=== PATIENT | female | born 1950 | race Caucasian/White ===

== ENCOUNTER → 2016-10-27 | Outpatient (CLI) | payer MEDICARE ==
--- NOTE | 2016-10-31 07:35 | MM ---
Reason for exam: screening (asymptomatic). Last mammogram was performed 1 year and 5 months ago. History: Patient is postmenopausal. Benign stereotactic core biopsy of the left breast, June 25, 2004. Core biopsy of the left breast. Took estrogen for 3 years. Physical Findings: A clinical breast exam by your physician is recommended on an annual basis and results should be correlated with mammographic findings. MG 3D Screening Mammo W/Cad Bilateral CC and MLO view(s) were taken. Prior study comparison: June 11, 2015, bilateral MG screening mammo w CAD. June 05, 2014, bilateral MG screening mammo w CAD. May 03, 2013, bilateral digital screening mammo w/CAD. There are scattered fibroglandular densities. Previous mammotome biopsy in the left breast. No significant changes when compared with prior studies. ASSESSMENT: Negative, BI-RAD 1 RECOMMENDATION: Routine screening mammogram of both breasts in 1 year.
== END | disposition home or self-care (01) ==
LOC: RADMAMWWP 07:44
PROVIDERS: ATTEND Internal Medicine
DX: Z12.31 Encounter for screening mammogram for malignant neoplasm of breast (principal)
CPT/HCPCS: 77063; G0202

== ENCOUNTER 2017-02-05 07:42 | Emergency (ER) | payer MEDICARE ==
[2017-02-05 07:44] VITALS: BP 188/77; PULSE 70; RESP 18; TEMP 97.4
--- NOTE | 2017-02-05 08:09 | ED ---
General Adult HPI - General Chief complaint: ENT Stated complaint: FB in ear Time Seen by Provider: 02/05/17 07:54 Source: patient, RN notes reviewed Mode of arrival: ambulatory Limitations: no limitations - History of Present Illness Initial comments: Patient is a pleasant 66-year-old female presenting to the emergency department with sensation of insect in her left ear. Patient felt moving around in her ear this morning. The did flush her ear out however that only seemed to make symptoms worse. No history of similar problems previously. Discomfort is mild. - Related Data Home Medications Medication Instructions Recorded Confirmed Pravastatin Sodium [Pravachol] 80 mg PO DAILY 01/15/14 05/24/16 metFORMIN HCL [Glucophage Xr] 500 mg PO DAILY 01/15/14 05/24/16 Ibandronate Sodium [Boniva] 150 mg PO QMONTH 12/11/15 05/24/16 Calcium Carbonate [Calcium] 1,200 mg PO DAILY 05/19/16 05/24/16 Previous Rx's Medication Instructions Recorded Aspirin 325 mg PO BID #60 tab 05/27/16 Hydrocodone/Acetaminophen [[place] 1 - 2 each PO Q6HR PRN #90 tab 05/27/16 5-325] Lisinopril [Zestril] 5 mg PO DAILY tab 05/27/16 Sennosides-Docusate Sodium 2 tab PO DAILY #60 tablet 05/27/16 [Senokot-S] Allergies Allergy/AdvReac Type Severity Reaction Status Date / Time No Known Allergies Allergy Verified 02/05/17 07:44 Review of Systems ROS Statement: Those systems with pertinent positive or pertinent negative responses have been documented in the HPI. ROS Other: All systems not noted in ROS Statement are negative. Constitutional: Denies: fever Eyes: Denies: eye pain ENT: Reports: ear pain Respiratory: Denies: cough Cardiovascular: Denies: chest pain Endocrine: Denies: fatigue Gastrointestinal: Denies: abdominal pain, vomiting Genitourinary: Denies: dysuria Musculoskeletal: Denies: back pain Skin: Denies: rash Neurological: Denies: weakness Past Medical History Past Medical History: Diabetes Mellitus, Hyperlipidemia, Hypertension Additional Past Medical History / Comment(s): Lumbar disc History of Any Multi-Drug Resistant Organisms: None Reported Past Surgical History: Tonsillectomy Additional Past Surgical History / Comment(s): D&C, COLONOSCOPIES, BUNIONS, 10-4 -16 LT TOTAL KNEE REPLACEMENT Past Anesthesia/Blood Transfusion Reactions: No Reported Reaction Past Psychological History: No Psychological Hx Reported Smoking Status: Never smoker Past Alcohol Use History: None Reported Past Drug Use History: None Reported - Past Family History Father Family Medical History: Congestive Heart Failure (CHF) Mother Family Medical History: Cancer Additional Family Medical History / Comment(s): UNSURE WHAT KIND, HEART PROBLEMS General Exam Limitations: no limitations General appearance: alert, in no apparent distress Head exam: Present: atraumatic Eye exam: Present: normal appearance Expanded TM/Canal exam: Foreign Body: Left TM (moth) Neck exam: Present: normal inspection Respiratory exam: Present: normal lung sounds bilaterally Cardiovascular Exam: Present: regular rate, normal rhythm GI/Abdominal exam: Present: soft. Absent: tenderness Neurological exam: Present: alert Psychiatric exam: Present: normal affect, normal mood Skin exam: Present: normal color Course Vital Signs 02/05/17 07:43 Temperature 97.4 F L Pulse Rate 70 Respiratory 18 Rate Blood Pressure 188/77 O2 Sat by Pulse 98 Oximetry Procedures - Foreign Body Removal Ear Location: ear canal (L) Foreign Body Suspected: insect If Insect Suspected: ear canal inspected; intact TM, insect seen Foreign Body Removal Technique: forceps (removed with alligator forceps) Patient Tolerated Procedure: well Complications: none Disposition Clinical Impression: Foreign body in left ear Disposition: HOME SELF-CARE Condition: Stable Instructions: Ear Foreign Body (ED) Additional Instructions: Please follow-up with your doctor in the next few days for recheck. Return for fever, increased pain, hearing loss, discharge, worsening symptoms or other concerns Referrals: Salbador Martinez MD [Primary Care Provider] - 1-2 days Time of Disposition: 08:09
== END 2017-02-05 08:11 | disposition home or self-care (01) ==
LOC: EC 07:42
DX: T16.2XXA Foreign body in left ear, initial encounter (principal); E11.9 Type 2 diabetes mellitus without complications; E78.5 Hyperlipidemia, unspecified; Z79.899 Other long term (current) drug therapy; Z79.84 Long term (current) use of oral hypoglycemic drugs
CPT/HCPCS: 69200; 99282

== ENCOUNTER 2017-05-29 08:17 | Emergency (ER) | payer MEDICARE ==
[2017-05-29] MEDS ORDERED: MECLIZINE 12.5 MG TAB PO STA (08:44)
--- NOTE | 2017-05-29 08:55 | ED ---
Dizziness HPI - General Chief Complaint: Dizziness Stated Complaint: DIZZINESS, NAUSEA Time Seen by Provider: 05/29/17 08:31 Source: patient, RN notes reviewed Mode of arrival: wheelchair Limitations: no limitations - History of Present Illness Initial Comments: This is a 66-year-old female with a history of diabetes who states she woke up this morning and father she was very dizzy this with head movement while in bed and when she failure this morning. She states is still there she denies any headache blurry vision focal weakness or upper or lower extremities she was feeling fine when she went to bed last night this he she's had a sinus condition with some rhinorrhea and congestion for about a week. No other complaints no prior histories of vertigo no hearing loss no other complaints at this time. MD Complaint: dizziness, lightheadedness - Related Data Home Medications Medication Instructions Recorded Confirmed Pravastatin Sodium [Pravachol] 80 mg PO HS 01/15/14 05/29/17 metFORMIN HCL [Glucophage Xr] 500 mg PO DAILY 01/15/14 05/29/17 Ibandronate Sodium [Boniva] 150 mg PO QMONTH 12/11/15 05/29/17 Aspirin [Adult Low Dose Aspirin EC] 81 mg PO HS 02/05/17 05/29/17 Furosemide [Lasix] 20 mg PO DAILY 02/05/17 05/29/17 Lisinopril [Zestril] 10 mg PO DAILY 02/05/17 05/29/17 Calcium Carbonate [Calcium] 600 mg PO BID 05/29/17 05/29/17 Previous Rx's Medication Instructions Recorded Meclizine [Antivert] 25 mg PO TID #20 tab 05/29/17 Allergies Allergy/AdvReac Type Severity Reaction Status Date / Time No Known Allergies Allergy Verified 05/29/17 08:49 Review of Systems ROS Statement: Those systems with pertinent positive or pertinent negative responses have been documented in the HPI. ROS Other: All systems not noted in ROS Statement are negative. Past Medical History Past Medical History: Diabetes Mellitus, Hyperlipidemia, Hypertension Additional Past Medical History / Comment(s): Lumbar disc History of Any Multi-Drug Resistant Organisms: None Reported Past Surgical History: Tonsillectomy Additional Past Surgical History / Comment(s): D&C, COLONOSCOPIES, BUNIONS, 05-24 LT TOTAL KNEE REPLACEMENT Past Anesthesia/Blood Transfusion Reactions: No Reported Reaction Past Psychological History: No Psychological Hx Reported Smoking Status: Never smoker Past Alcohol Use History: None Reported Past Drug Use History: None Reported - Past Family History Father Family Medical History: Congestive Heart Failure (CHF) Mother Family Medical History: Cancer Additional Family Medical History / Comment(s): UNSURE WHAT KIND, HEART PROBLEMS General Exam - General Exam Comments Initial Comments: This is a well-developed well-nourished awake alert oriented 3 female Limitations: no limitations General appearance: alert, in no apparent distress Head exam: Present: atraumatic, normocephalic, normal inspection Eye exam: Present: normal appearance, PERRL, EOMI. Absent: scleral icterus, conjunctival injection, periorbital swelling ENT exam: Present: other (Boggy nasal mucosa otherwise unremarkable exam. Is reproducible dizziness with head and eye movement.) Neck exam: Present: normal inspection. Absent: tenderness, meningismus, lymphadenopathy Respiratory exam: Present: normal lung sounds bilaterally. Absent: respiratory distress, wheezes, rales, rhonchi, stridor Cardiovascular Exam: Present: regular rate, normal rhythm, normal heart sounds. Absent: systolic murmur, diastolic murmur, rubs, gallop, clicks GI/Abdominal exam: Present: soft, normal bowel sounds. Absent: distended, tenderness, guarding, rebound, rigid Extremities exam: Present: full ROM, normal capillary refill, other (This is dermatitis with trace edema more so on the left than the right). Absent: tenderness, pedal edema, joint swelling, calf tenderness Back exam: Present: normal inspection Neurological exam: Present: alert, oriented X3, CN II-XII intact Psychiatric exam: Present: normal affect, normal mood Skin exam: Present: warm, dry, intact, normal color. Absent: rash Course Vital Signs 05/29/17 05/29/17 05/29/17 08:19 09:08 10:08 Temperature 97.0 F L Pulse Rate 60 54 L 54 L Respiratory 17 Rate Blood Pressure 144/61 124/57 150/67 O2 Sat by Pulse 100 97 97 Oximetry EKG Findings - EKG Results: EKG: interpreted by ERMD, sinus rhythm (Sinus rhythm rate of 59. A 144 QRS duration 80 QT since QTC of 434/429 nonspecific T-wave configuration.) Medical Decision Making - Medical Decision Making Patient is feeling improved and place without difficulty. Patient will be discharged and placed on Antivert. She is follow-up with her doctor return when necessary - Lab Data Result diagrams: 05/29/17 09:00 05/29/17 09:00 Lab Results 05/29/17 05/29/17 05/29/17 Range/Units 09:00 09:00 09:00 WBC 4.6 (3.8-10.6) k/uL RBC 4.37 (3.80-5.40) m/uL Hgb 14.0 (11.4-16.0) gm/dL Hct 42.0 (34.0-46.0) % MCV 96.1 (80.0-100.0) fL MCH 31.9 (25.0-35.0) pg MCHC 33.2 (31.0-37.0) g/dL RDW 13.6 (11.5-15.5) % Plt Count 154 (150-450) k/uL Neutrophils % 77 % Lymphocytes % 16 % Monocytes % 5 % Eosinophils % 1 % Basophils % 0 % Neutrophils # 3.6 (1.3-7.7) k/uL Lymphocytes # 0.7 L (1.0-4.8) k/uL Monocytes # 0.3 (0-1.0) k/uL Eosinophils # 0.1 (0-0.7) k/uL Basophils # 0.0 (0-0.2) k/uL PT (9.0-12.0) sec INR (<1.2) Sodium 140 (137-145) mmol/L Potassium 4.0 (3.5-5.1) mmol/L Chloride 107 (98-107) mmol/L Carbon Dioxide 25 (22-30) mmol/L Anion Gap 8 mmol/L BUN 23 H (7-17) mg/dL Creatinine 0.80 (0.52-1.04) mg/dL Est GFR (MDRD) Af Amer >60 (>60 ml/min/1.73 sqM) Est GFR (MDRD) Non-Af >60 (>60 ml/min/1.73 sqM) Glucose 149 H (74-99) mg/dL Calcium 9.0 (8.4-10.2) mg/dL Magnesium 1.8 (1.6-2.3) mg/dL Total Bilirubin 0.4 (0.2-1.3) mg/dL AST 16 (14-36) U/L ALT 28 (9-52) U/L Alkaline Phosphatase 71 (38-126) U/L Total Creatine Kinase 52 (30-135) U/L CK-MB (CK-2) 0.9 (0.0-2.4) ng/mL CK-MB (CK-2) Rel Index 1.7 Troponin I <0.012 (0.000-0.034) ng/mL Total Protein 5.9 L (6.3-8.2) g/dL Albumin 3.6 (3.5-5.0) g/dL Urine Color Urine Appearance (Clear) Urine pH (5.0-8.0) Ur Specific [place] (1.001-1.035) Urine Protein (Negative) Urine Glucose (UA) (Negative) Urine Ketones (Negative) Urine Blood (Negative) Urine Nitrite (Negative) Urine Bilirubin (Negative) Urine Urobilinogen (<2.0) mg/dL Ur Leukocyte Esterase (Negative) 05/29/17 05/29/17 Range/Units 09:00 11:11 WBC (3.8-10.6) k/uL RBC (3.80-5.40) m/uL Hgb (11.4-16.0) gm/dL Hct (34.0-46.0) % MCV (80.0-100.0) fL MCH (25.0-35.0) pg MCHC (31.0-37.0) g/dL RDW (11.5-15.5) % Plt Count (150-450) k/uL Neutrophils % % Lymphocytes % % Monocytes % % Eosinophils % % Basophils % % Neutrophils # (1.3-7.7) k/uL Lymphocytes # (1.0-4.8) k/uL Monocytes # (0-1.0) k/uL Eosinophils # (0-0.7) k/uL Basophils # (0-0.2) k/uL PT 10.2 (9.0-12.0) sec INR 1.0 (<1.2) Sodium (137-145) mmol/L Potassium (3.5-5.1) mmol/L Chloride (98-107) mmol/L Carbon Dioxide (22-30) mmol/L Anion Gap mmol/L BUN (7-17) mg/dL Creatinine (0.52-1.04) mg/dL Est GFR (MDRD) Af Amer (>60 ml/min/1.73 sqM) Est GFR (MDRD) Non-Af (>60 ml/min/1.73 sqM) Glucose (74-99) mg/dL Calcium (8.4-10.2) mg/dL Magnesium (1.6-2.3) mg/dL Total Bilirubin (0.2-1.3) mg/dL AST (14-36) U/L ALT (9-52) U/L Alkaline Phosphatase (38-126) U/L Total Creatine Kinase (30-135) U/L CK-MB (CK-2) (0.0-2.4) ng/mL CK-MB (CK-2) Rel Index Troponin I (0.000-0.034) ng/mL Total Protein (6.3-8.2) g/dL Albumin (3.5-5.0) g/dL Urine Color Yellow Urine Appearance Clear (Clear) Urine pH 6.0 (5.0-8.0) Ur Specific [place] 1.011 (1.001-1.035) Urine Protein Negative (Negative) Urine Glucose (UA) Negative (Negative) Urine Ketones Negative (Negative) Urine Blood Negative (Negative) Urine Nitrite Negative (Negative) Urine Bilirubin Negative (Negative) Urine Urobilinogen <2.0 (<2.0) mg/dL Ur Leukocyte Esterase Negative (Negative) - Radiology Data Radiology results: report reviewed (I did review the imaging and reports no acute findings.), image reviewed Disposition Clinical Impression: Benign paroxysmal positional vertigo Disposition: HOME SELF-CARE Condition: Good Instructions: Dizziness (ED), Benign Paroxysmal Positional Vertigo (ED) Prescriptions: Meclizine [Antivert] 25 mg PO TID #20 tab Referrals: Salbador Martinez MD [Primary Care Provider] - 1-2 days
[2017-05-29 09:16] LABS: Basophils % (A) 0 %; CH 33.3; CHCM 34.9; Eosinophils # (A) 0.1 k/uL (0-0.7); Eosinophils % (A) 1 %; HDW 2.85; Luc # (Auto) 0.03; Luc % (Auto) 1; Lymphocytes # (A) 0.7 k/uL (1.0-4.8); Lymphocytes % (A) 16 %; MCH 31.9 pg (25.0-35.0); MCHC 33.2 g/dL (31.0-37.0); MCV 96.1 fL (80.0-100.0); Monocytes # (A) 0.3 k/uL (0-1.0); Monocytes % (A) 5 %; Neutrophils # (A) 3.6 k/uL (1.3-7.7); Neutrophils % (A) 77 %; RBC 4.37 m/uL (3.80-5.40); RDW 13.6 % (11.5-15.5); WBC 4.6 k/uL (3.8-10.6); WBC (Perox) 5.05
[2017-05-29 09:22] LABS: ALT 28 U/L (9-52); AST 16 U/L (14-36); Alkaline Phosphatase 71 U/L (38-126); Anion Gap 8 mmol/L; Blood Urea Nitrogen 23 mg/dL (7-17); Carbon Dioxide 25 mmol/L (22-30); Chloride 107 mmol/L (98-107); Glucose 149 mg/dL (74-99); Magnesium 1.8 mg/dL (1.6-2.3); Non-African American GFR(MDRD) >60 (>60 ml/min/1.73 sqM); Sodium 140 mmol/L (137-145); Total Bilirubin 0.4 mg/dL (0.2-1.3); Total Protein 5.9 g/dL (6.3-8.2)
[2017-05-29 09:28] LABS: Prothrombin Time 10.2 sec (9.0-12.0)
[2017-05-29 09:34] LABS: Creatine Kinase 52 U/L (30-135)
--- NOTE | 2017-05-29 09:42 | CT ---
EXAMINATION TYPE: CT brain wo con DATE OF EXAM: 05/29/2017 COMPARISON: NONE HISTORY: Dizziness CT DLP: 1054.2 mGycm Automated exposure control for dose reduction was used. Helical acquisition through the brain. FINDINGS: There is no hemorrhage or hydrocephalus. Brain density is maintained. Cerebral vascular calcification s are noted incidentally. The calvarium is intact. Paranasal sinuses and mastoid air cells as visuali zed show mild mucosal disease in the sinus, mastoids are well aerated. The orbits show symmetric appe arance. IMPRESSION: NO ABNORMALITY EVIDENT TO ACCOUNT FOR PATIENT'S SYMPTOMS.
[2017-05-29 09:47] LABS: Troponin I <0.012 ng/mL (0.000-0.034)
[2017-05-29 10:03] LABS: Creatine Kinase MB 0.9 ng/mL (0.0-2.4)
[2017-05-29 11:18] LABS: Appearance,Urine Clear (Clear); Bilirubin,Urine Negative (Negative); Glucose,Urine (UA) Negative (Negative); Ketones,Urine Negative (Negative); Leukocyte Esterase,Urine Negative (Negative); Nitrite,Urine Negative (Negative); Protein,Urine Negative (Negative); Specific Gravity,Urine 1.011 (1.001-1.035); UA Billing (MACRO vs. MICRO) CHEM; Urobilinogen,Urine <2.0 mg/dL (<2.0)
[2017-05-29 11:51] VITALS: BP 146/66; PULSE 56; RESP 16; TEMP 97.2
== END 2017-05-29 11:51 | disposition home or self-care (01) ==
LOC: EC 08:17
DX: H81.10 Benign paroxysmal vertigo, unspecified ear (principal); E11.9 Type 2 diabetes mellitus without complications; E78.5 Hyperlipidemia, unspecified; I10 Essential (primary) hypertension; Z79.84 Long term (current) use of oral hypoglycemic drugs; Z79.82 Long term (current) use of aspirin; Z79.899 Other long term (current) drug therapy
CPT/HCPCS: 36415; 70450; 80053; 81003; 82550; 82553; 83735; 84484; 85025; 85610; 93005; 99284

== ENCOUNTER → 2017-12-12 | Outpatient (CLI) | payer MEDICARE ==
--- NOTE | 2017-12-13 11:53 | MM ---
Reason for exam: screening (asymptomatic). Last mammogram was performed 1 year and 1 month ago. History: Patient is postmenopausal. Benign stereotactic core biopsy of the left breast, June 25, 2004. Core biopsy of the left breast. Took estrogen for 3 years. Physical Findings: A clinical breast exam by your physician is recommended on an annual basis and results should be correlated with mammographic findings. MG 3D Screening Mammo W/Cad Bilateral CC and MLO view(s) were taken. Prior study comparison: October 27, 2016, bilateral MG 3d screening mammo w/cad. June 11, 2015, bilateral MG screening mammo w CAD. There are scattered fibroglandular densities. No suspicious abnormality. Left biopsy marker noted. No significant changes when compared with prior studies. ASSESSMENT: Negative, BI-RAD 1 RECOMMENDATION: Routine screening mammogram of both breasts in 1 year.
== END | disposition home or self-care (01) ==
LOC: RADMAMWWP 07:47
PROVIDERS: ATTEND Internal Medicine
DX: Z12.31 Encounter for screening mammogram for malignant neoplasm of breast (principal)
CPT/HCPCS: 77063; 77067

== ENCOUNTER → 2017-12-21 | Outpatient (CLI) | payer MEDICARE ==
[2017-12-21 12:00] LABS: HCT 44.3 % (34.0-46.0); MCH 30.2 pg (25.0-35.0); MCHC 33.7 g/dL (31.0-37.0); MCV 89.4 fL (80.0-100.0); Mean Platelet Volume 7.9; Platelet Count 186 k/uL (150-450); RBC 4.96 m/uL (3.80-5.40); RDW 12.8 % (11.5-15.5); WBC 5.2 k/uL (3.8-10.6)
[2017-12-21 12:13] LABS: Calcium 9.8 mg/dL (8.4-10.2); Potassium 4.3 mmol/L (3.5-5.1); Total Bilirubin 0.6 mg/dL (0.2-1.3); Total Protein 6.2 g/dL (6.3-8.2)
[2017-12-21 12:14] LABS: INR 1.1 (<1.2); Partial Thromboplastin Time 22.4 sec (22.0-30.0); Prothrombin Time 10.5 sec (9.0-12.0)
[2017-12-21 13:05] LABS: Appearance,Urine Cloudy (Clear); Bilirubin,Urine Negative (Negative); Blood,Urine Negative (Negative); Color,Urine Yellow; Glucose,Urine (UA) Negative (Negative); Ketones,Urine Negative (Negative); Leukocyte Esterase,Urine Large (Negative); Mucus,Urine Occasional /hpf; Nitrite,Urine Negative (Negative); PH, Urine 5.5 (5.0-8.0); Protein,Urine Negative (Negative); Specific Gravity,Urine 1.018 (1.001-1.035); Squamous Epithelial Cell,Urine 16 /hpf (0-4); Urobilinogen,Urine <2.0 mg/dL (<2.0); WBC,Urine 11 /hpf (0-5)
== END | disposition home or self-care (01) ==
LOC: LABPAT 11:27
PROVIDERS: ATTEND Orthopaedic Surgery
DX: Z01.810 Encounter for preprocedural cardiovascular examination (principal); Z79.01 Long term (current) use of anticoagulants; Z01.812 Encounter for preprocedural laboratory examination
CPT/HCPCS: 36415; 80053; 81001; 85027; 85610; 85730; 87070; 93005

== ENCOUNTER 2018-01-08 05:30 | Inpatient (IN) | payer MEDICARE ==
[2017-12-28 11:21] VITALS: BMI 50.8
--- NOTE | 2018-01-04 15:51 | CONS ---
CONSULTATION REASON FOR ADMISSION: She is scheduled for orthopedic surgery at [facility] on January 08 under direction of orthopedic surgeon, Dr. Robin Romo. HISTORY OF PRESENT ILLNESS: The patient other than the pain she is having with the right knee, she is not complaining of any unusual chest pain, shortness of breath. No fever, chills, or cough. No nausea, vomiting. No urinary or bowel symptomatology. No unusual leg edema. The patient herself does have a history of type 2 diabetes, hypertension , hyperlipidemia. She is overall obese and has underlying osteoporosis and a previous history of a previous DVT after her previous left knee surgery 2 years ago. At this point though she is not on any long-term anticoagulation. No history of myocardial infarction or stroke. HOME MEDICATIONS: Include for the osteoporosis Boniva 150 mg on a monthly basis, for cholesterol pravastatin 80 mg daily, for blood pressure lisinopril 10 mg daily, for diabetes, metformin 500 mg daily, for fluid and blood pressure, furosemide 20 mg daily. ALLERGIES: No known allergies. REVIEW OF SYSTEMS: As stated above previous. SOCIAL HISTORY: Very infrequent alcohol use. There is no history of smoking. She lives locally with her . PREVIOUS SURGICAL HISTORY: Includes a left knee surgery back 2015, previous D and C, previous left breast biopsy, previous bunion surgery. PHYSICAL EXAMINATION: She is a pleasant, but overweight female with a BMI of 48.9 and a weight of 276 pounds. Height of 63, blood pressure was 126/86, pulse of 72 and regular. HEENT: Unremarkable. NECK: Supple without adenopathy, thyromegaly, or bruits. Lungs were clear to auscultation. Heart tones were regular without murmur. Breasts and pelvic exam was deferred. ABDOMEN: Nontender without rebound, guarding, or masses. Extremities revealed no unusual distal edema. Distal pulses were present. She has had no claudication history and neurologically she is alert and oriented. Cranial nerves intact. No focal neurological deficits. LAB: Testing blood sugar randomly was 110. Sodium 140, potassium 4.3, BUN of 23 with creatinine 0.82. Giving her a GFR of 74. Albumin was 4.0. Liver function tests were good. White count 5.2, hemoglobin 15, and a platelet count of 186. Her INR is 1.1, PTT 22.4. Her urinalysis did reveal a large amount of leukocyte esterase with 11 white cells, although there were 16 squamous cells present, which could indicate some contamination. Her EKG showed a normal sinus rhythm. No definite ischemic changes noted. Rate was approximately 72-75. IMPRESSION: At this point is this 67-year-old female for a right total knee arthroplasty. She does have somewhat risk factors in terms of previous history of DVT 2 years ago, the obesity and diabetes. She does have history of hypertension, history of osteoporosis. At this point though, I see no definite contraindication for this surgery. Because of the leukocyte esterase we will send a culture and sterilize urine with oral antibiotics through the rest of the weekend but at this point, I see no definite contraindication to any planned surgical intervention regarding the knee. Please call if any questions, concerns, or problems. MMODL / IJN: [id number] / MTDD
[~2018-01-08 05:30] MED LIST: ACETAMINOPHEN TAB 500 MG TAB PO ONE; MELOXICAM 7.5 MG TAB PO ONE; TRANEXAMIC ACID 1,000 MG in SODIUM CHLORIDE 0.9% 50 ML IVPB ONE
[2018-01-08] MEDS ORDERED: ROPIVACAINE 246.25 MG, EPINEPHrine 0.5 MG, KETOROLAC 30 MG, cloNIDine HCL/PF 80 MCG, WA... MISCELLANE ONE ×5 (05:50)
[2018-01-08] MEDS ORDERED: LIDOCAINE 1% 20 ML VIAL (10MG/ML) FOR IV START INTRADERMA PRN (05:58)
[2018-01-08] MEDS ORDERED: MORPHINE SULFATE 4 MG/ML SYRINGE IV PRN (05:58)
[2018-01-08] MEDS ORDERED: ONDANSETRON 4 MG/2 ML VIAL IVP ONE (05:58)
[2018-01-08] MEDS ORDERED: MIDAZOLAM 2 MG/2 ML VIAL IV PRN (05:58)
[2018-01-08] MEDS ORDERED: DEXAMETHASONE SOD PHOSPHATE 10 MG/ML 1 ML VIAL IV ONE (05:58)
[2018-01-08 06:40] LABS: Glucose,Whole Blood 115 mg/dL (75-99)
[2018-01-08] MEDS ORDERED: NALOXONE 0.4 MG/ML 1 ML VIAL IV PRN (06:57)
[2018-01-08] MEDS ORDERED: BISACODYL 10 MG SUPP RECTAL PRN (06:57)
[2018-01-08] MEDS ORDERED: NA PHOS,M-B/NA PHOS,DI-BA 133 ML ENEMA RECTAL PRN (06:57)
[2018-01-08] MEDS ORDERED: hydrOXYzine PAMOATE 25 MG CAP PO PRN (06:57)
[2018-01-08] MEDS ORDERED: HYDROmorphone 0.5 MG/0.5 ML SYRINGE IVP PRN ×4 (06:57)
[2018-01-08] MEDS ORDERED: DIAZEPAM 5 MG TAB PO PRN ×2 (06:57)
[2018-01-08] MEDS ORDERED: HYDROcodone/APAP 5-325MG 1 EACH TAB PO PRN (06:57)
[2018-01-08] MEDS ORDERED: MAGNESIUM HYDROXIDE 2,400 MG/10 ML CUP PO PRN (06:57)
[2018-01-08] MEDS ORDERED: ONDANSETRON 4 MG/2 ML VIAL IVP PRN (06:57)
[2018-01-08] MEDS: LACTATED RINGERS 1,000 ML IV SCH ×2 (07:03→10:57)
[2018-01-08] MEDS ORDERED: TRANEXAMIC ACID 1,000 MG/10 ML VIAL ONE (07:04)
[2018-01-08] MEDS ORDERED: SODIUM CHLORIDE 0.9% 100 ML BAG ONE (07:04)
[2018-01-08] MEDS ORDERED: ePHEDrine SULFATE/0.9% NACL/PF 50 MG/5 ML SYRINGE IV ONE (07:04)
[2018-01-08] MEDS ORDERED: ceFAZolin 3,000 MG in SODIUM CHLORIDE 0.9% IRRIGATIO 3,000 ML IRRIGATION ONE (07:04)
[2018-01-08] MEDS ORDERED: MIDAZOLAM 2 MG/2 ML VIAL ONE (07:04)
[2018-01-08] MEDS ORDERED: IV FLUID CONTINUATION 1,000 ML IV ONE (07:04)
[2018-01-08] MEDS ORDERED: LACTATED RINGERS 1,000 ML IV ONE (08:02)
[2018-01-08] MEDS ORDERED: ROPIVACAINE 1,100 MG, SODIUM CHLORIDE 0.9% 330 ML MISCELLANE PRN ×2 (08:15)
--- NOTE | 2018-01-08 08:17 | P.ONQ ---
Anesthesiology Proc Note - PNB - Peripheral Nerve Block Performed Right Adductor Canal Infusion Time Out Performed: Yes Procedure Start Time: 06:51 Procedure Stop Time: 07:00 Indication: Acute Post-Operative Pain, Requested by physician Sedation Type: Sedate with meaningful contact maintained Preparation: Sterile Dressing Position: Supine Catheter: Indwelling Needle Types: On-Q Needle Size: 100mm (4") Needle Gauge: 21 Technique: Ultrasound Injectate: 0.5% Ropivacaine (see comment for volume) (ropi .5% 20cc) Blood Aspirated: No Pain Paresthesia on Injection Noted: No Resistance on Injection: Normal Events: Uneventful and Well Tolerated
--- NOTE | 2018-01-08 08:30 | P.OP ---
Date of Procedure: 01/08/18 Preoperative Diagnosis: Severe osteoarthritis right knee Postoperative Diagnosis: Severe osteoarthritis right knee Procedure(s) Performed: Right total knee arthroplasty Implants: Tovar and Nephew Oxinium femoral component size 5, right Tovar & Nephew Darlene II right nonporous tibial baseplate size 3 Tovar & Nephew size 13 mm Legion XLPE dished articular insert, size 3-4 Tovar & Nephew Darlene II resurfacing patellar component, 29 mm All components were cemented using Catracho bone cement.. The articulation is Oxinium on polyethylene. Anesthesia: spinal Surgeon: Robin Romo Road Cleaner #1: Marybel Burnett Estimated Blood Loss (ml): 25 Pathology: other (Bone and cartilage) Condition: stable Disposition: PACU Indications for Procedure: After failure of conservative treatment we discussed the surgical and nonsurgical treatment options at length. Patient wishes to proceed with a total knee arthroplasty. Complications specific to this procedure were discussed at length, including but not limited to infection, bleeding, stiffness , and nerve injury. Patient is aware of all these complications and informed consent was obtained Operative Findings: The operative findings are consistent with severe osteoarthritis of the right knee Description of Procedure: Patient was seen in the preoperative area consent was reviewed and operative site was marked with a skin marker. An adductor canal pain catheter was placed by anesthesia in the preoperative area. Patient was then brought to the operating room and given preoperative antibiotics intravenously. A spinal anesthetic was administered by the anesthesia department. A tourniquet was placed on the upper thigh and the lower extremity was prepped and draped in usual sterile fashion. A gram of transexamic acid was given. A universal timeout was then performed which confirmed the patient's name, surgical site, ALLERGIES, and consent. The lower extremity was then exsanguinated and tourniquet was inflated to 300 mmHg. A standard and anterior midline approach to the knee was performed. The skin and subcutaneous tissue was dissected down to the patellar tendon. A medial parapatellar arthrotomy was then performed. The knee was then extended, the patellar was everted, and the knee was again flexed. Anterior horns of both menisci were excised, and a release was performed to the posterior medial aspect of the knee. On gross visual inspection, there was complete loss of articular cartilage in the medial and patellofemoral joint spaces. There was also significant cartilage damage in the lateral compartment. There were multiple periarticular osteophytes which were then removed with a Ronguer. The femoral canal was then opened with the appropriate drill, and the intramedullary femoral cutting guide was then placed and set for 4 of valgus. The distal femoral cutting block was then pinned in place, and the distal femur was then cut. The cutting block was then removed and the cut was checked for flatness. Next, the sizing guide was then placed and set for 3 external rotation based off of the epicondylar axis and Whitesides line. After the femur was sized, the appropriate 4-in-1 cutting block was then pinned in place. The anterior condyles were cut without notching. The posterior and chamfer cuts were performed while protecting the collateral ligaments. The cutting block was then removed, and the femoral canal was plugged with autologous bone. Attention was then directed to the tibia. The remaining ACL was removed with a Ronguer, and the tibia was then gently subluxed forward with a large bent knee retractor. Any remaining menisci was excised. The posterior lateral corner was cauterized in order to cauterize the lateral geniculate artery. The extra medullary tibial cutting guide was then placed, set for the appropriate rotation , slope, and depth of resection. The proximal tibia cutting guide was then pinned in place. Proximal tibia was then cut and sized. Next trials were then placed with the appropriate-sized insert. The knee was able to fully extend and flex to 130 and was stable throughout all range of motion. The knee was then extended, patella everted. Patella was then measured, and then using an osteotomy guide, the patella was cut at the appropriate level. The patella was then measured and drilled and the patella trial was then placed. The knee was then taken through range of motion with the patella trial and the patella tracked normally. The knee was then extended patella trial was then removed and the patella was everted. Knee was then flexed and lug holes were drilled through the femoral trial and the femoral trial was then removed. The tibial was then exposed, and the tibial broach guide was then pinned in place after it was set for the appropriate rotation to allow for the most coverage without overhang. The tibia was then reamed and broached. The cut surfaces of bone were then irrigated with pulsatile lavage. The posterior structures were injected with the ropivacaine solution. The knee was also irrigated with Irrisept solution. The components were then opened, the cement was mixed, and the components were then cemented in place. The cement was allowed to harden with the knee in full extension. While the cement was hardening, the remaining soft tissues were then injected with a ropivacaine solution, which consisted of 246.25 mg of ropivacaine, 0.5 mg of epinephrine, 30 mg of Toradol, 80 g of clonidine, and 48.45 mL of sterile water, for a total of 100 mL of fluid injected. After the cemented hardened. The tourniquet was released, and hemostasis was obtained. A second gram of transexamic acid was given. The knee was again irrigated. The knee was again taken through range of motion and found to be stable throughout all range of motion of 0-130 , and the patella tracked normally. The fascia was then closed with #2 strata fix suture. The subcutaneous tissue was closed with 3-0 Vicryl and 3-0 strata fix. Dermabond glue was used for the skin and placed with the knee in flexion. The patient was placed in a sterile silver dressing. Patient was then transferred to recovery room in stable condition. The itinerant teacher assistant SERAFIN Alarcon was required due the complexity surgery and the need for a skilled surgical instrument repair specialist. She assisted in positioning, draping, retraction, and closure of the wound.
[2018-01-08 08:59] LABS: Glucose,Whole Blood 150 mg/dL (75-99)
[2018-01-08] MEDS ORDERED: MELOXICAM 7.5 MG TAB PO SCH (09:00)
[2018-01-08] MEDS ORDERED: RIVAROXABAN 10 MG TAB PO SCH (09:00)
--- NOTE | 2018-01-08 09:21 | XR ---
EXAMINATION TYPE: XR knee limited RT DATE OF EXAM: 01/08/2018 COMPARISON: NONE HISTORY: 67-year-old female evaluation for postoperative abnormality in alignment TECHNIQUE: 2 views FINDINGS: Images show placement of right total knee arthroplasty. Both distal femoral and proximal tibial compo nents of the prosthesis appear well seated without periprosthetic fracture. Alignment is grossly amelie omic. Soft tissue air and anterior soft tissue swelling relating to recent operation. Intra-articular air in joint fluid also noted relating to recent operation. IMPRESSION: Uncomplicated postoperative appearance right total knee arthroplasty.
[2018-01-08] MEDS: SODIUM CHLORIDE 0.9% 1,000 ML IV SCH (10:03)
[2018-01-08 11:20] LABS: Glucose,Whole Blood 169 mg/dL (75-99)
[2018-01-08] MEDS: INSULIN ASPART 100 UNIT/ML 1 ML 10 ML VIAL SQ SCH ×3 (12:49→21:08)
[2018-01-08] MEDS: MECLIZINE 25 MG TAB PO SCH ×2 (16:18→21:09)
[2018-01-08 16:55] LABS: Glucose,Whole Blood 241 mg/dL (75-99)
--- NOTE | 2018-01-08 17:49 | P.PN ---
Progress Note - Text The patient is a 67-year-old female who underwent right total knee arthroplasty earlier today. The patient has a history of diabetes mellitus type 2, hypertension and hyperlipidemia. The patient also did have a previous DVT after left knee surgery 2 years ago. She does have underlying osteoporosis. Patient is resting comfortably postop. She has no distress. Vital signs reveal temperature of 98.7. Pulse of 83 with normal respirations and blood pressure 118/58. Blood sugars have ranged from 115 up to 241 as of late. Impressions and plans Please refer to previously dictated consultation. Patient has been started back on her home medications that include her metformin for her diabetes. Also her lisinopril for blood pressure. She is on Xarelto for prevention of DVT. NovoLog insulin coverage and Accu-Cheks ordered. May progress with activity and diet as per orthopedics. We'll continue to follow. Please call if any questions or concerns or problems.
[2018-01-08 20:18] LABS: Glucose,Whole Blood 212 mg/dL (75-99)
[2018-01-08] MEDS ORDERED: SENNOSIDES-DOCUSATE SODIUM 1 EACH TAB PO SCH (21:00)
[2018-01-08] MEDS ORDERED: PRAVASTATIN SODIUM 80 MG TAB PO SCH (21:00)
[2018-01-08] MEDS: CALCIUM CARBONATE 500 MG CHEWABLE PO SCH (21:08)
[2018-01-09] MEDS: HYDROcodone/APAP 5-325MG 1 EACH TAB PO PRN ×2 (05:27→11:10)
--- NOTE | 2018-01-09 07:16 | P.PN ---
Progress Note - Text 01/09 701 am 66-year-old female status post right knee replacement by Dr. Robin Romo. Patient has an On-Q pump for postop pain control with the solution running at 8 mL an hour. has a VAS of 3 and I encouraged her to have a rate increase if the pain goes up. I plan to continue On-Q pump infusion
[2018-01-09 07:25] LABS: Glucose,Whole Blood 121 mg/dL (75-99)
[2018-01-09] MEDS: SODIUM CHLORIDE 0.9% 1,000 ML IV SCH ×2 (07:29→16:50)
[2018-01-09] MEDS ORDERED: metFORMIN 500 MG TAB PO SCH (07:30)
[2018-01-09] MEDS: INSULIN ASPART 100 UNIT/ML 1 ML 10 ML VIAL SQ SCH ×2 (07:39→12:48)
[2018-01-09 08:08] LABS: Basophils % (A) 0 %; Eosinophils # (A) 0.1 k/uL (0-0.7); Eosinophils % (A) 1 %; Lymphocytes # (A) 0.7 k/uL (1.0-4.8); Lymphocytes % (A) 14 %; MCHC 34.4 g/dL (31.0-37.0); MCV 93.1 fL (80.0-100.0); Mean Platelet Volume 7.3; Monocytes # (A) 0.4 k/uL (0-1.0); Monocytes % (A) 7 %; Neutrophils # (A) 3.8 k/uL (1.3-7.7); Neutrophils % (A) 76 %; Platelet Count 148 k/uL (150-450); RBC 3.65 m/uL (3.80-5.40); RDW 13.2 % (11.5-15.5)
[2018-01-09 08:09] LABS: HGB 11.7 gm/dL (11.4-16.0)
--- NOTE | 2018-01-09 08:27 | P.PN ---
Progress Note - Text The patient is a 66-year-old female who is post right knee arthroplasty by Dr. Robin Romo yesterday. The patient does have underlying comorbidities include type 2 diabetes, hypertension and obesity and hyperlipidemia. She has had a previous DVT after left knee surgery 2 years previous. This morning she is sitting up in bed eating. States she has been up walking in the halls earlier. She denies any chest pain or unusual shortness of breath at this time. No nausea or vomiting. Vital signs temperature 97.8 with a pulse of 62 respirations 20 her blood pressure is 106/51 and she is 95% saturated on room air. Lung and heart examination is clear. Abdomen is nontender. No unusual distal edema at this time. Compression stocking on the left is in place. She is alert and oriented. No cranial nerve deficits. No focal weakness. Blood sugar is 121. White count is 5 with a hemoglobin 11.7 and a platelet count of 148. Impressions and plans Patient is generally doing well postop. She does have some relatively lower blood pressure reading and we will decrease her lisinopril to 2.5 mg and hold her Lasix that she has taken prior to admission. But at this time we'll continue with activities and therapy as per orthopedics. The patient also continues on Xarelto for DVT prophylaxis.
[2018-01-09] MEDS: CALCIUM CARBONATE 500 MG CHEWABLE PO SCH (08:53)
[2018-01-09] MEDS: MECLIZINE 25 MG TAB PO SCH (08:54)
[2018-01-09] MEDS ORDERED: LISINOPRIL 10 MG TAB PO SCH (09:00)
[2018-01-09] MEDS ORDERED: FUROSEMIDE 20 MG TAB PO SCH (09:00)
[2018-01-09] MEDS ORDERED: LISINOPRIL 2.5 MG TAB PO SCH (09:00)
[2018-01-09] MEDS ORDERED: RIVAROXABAN 10 MG TAB PO SCH (09:00)
--- NOTE | 2018-01-09 09:38 | P.DS ---
Providers Date of admission: 01/08/18 05:30 Expected date of discharge: 01/09/18 Attending physician: Robin Romo Consults: 01/08/18 06:57 Consult Physician Routine Consulting Provider: Salbador Martinez Reason/Comments: medical management Do you want consulting provider notified?: Yes Primary care physician: Salbador Martinez - Discharge Diagnosis(es) (1) Primary osteoarthritis of right knee Current Visit: Yes Status: Acute (2) S/P total knee arthroplasty Current Visit: Yes Status: Acute Hospital Course: This is a 67-year-old male fewith known history of degenerative arthritis of the right knee. The patient presents for evaluation. After discussion and consideration patient elects to proceed with total knee arthroplasty. The patient is seen preoperatively by Dr. Romo and medically cleared for surgery by their primary care physician. Patient is admitted to [facility] on 01/08/2018 for total knee arthroplasty. The procedures performed without complication or sequelae. The patient is doing well postoperatively. Labs and vital signs are stable on day of discharge. On day of discharge patient's knee incision is healing well. There is minimal erythema. There is mild drainage noted at this time. There is minimal soft tissue swelling to the knee. Patient has full foot and ankle motion without difficulty or pain. Neurovascular status to the right lower extremity is intact. Patient is discharged home in good condition. Please see med rec for accurate list of home medications. Plan - Discharge Summary Discharge Rx Participant: Yes New Discharge Prescriptions: New HYDROcodone/APAP 5-325MG [Willet 5-325] 1 - 2 tab PO Q4-6H PRN #90 tab PRN Reason: Pain Rivaroxaban [Xarelto] 10 mg PO DAILY #30 tab Sennosides [Senokot] 1 tab PO BID #60 tablet No Action Pravastatin Sodium [Pravachol] 80 mg PO HS metFORMIN HCL [Glucophage Xr] 500 mg PO DAILY Ibandronate Sodium [Boniva] 150 mg PO QMONTH Lisinopril [Zestril] 10 mg PO DAILY Furosemide [Lasix] 20 mg PO DAILY Aspirin [Adult Low Dose Aspirin EC] 81 mg PO HS Calcium Carbonate [Calcium] 600 mg PO BID Meclizine [Antivert] 25 mg PO TID #20 tab Discharge Medication List Pravastatin Sodium [Pravachol] 80 mg PO HS 01/15/14 [History] metFORMIN HCL [Glucophage Xr] 500 mg PO DAILY 01/15/14 [History] Ibandronate Sodium [Boniva] 150 mg PO QMONTH 12/11/15 [History] Aspirin [Adult Low Dose Aspirin EC] 81 mg PO HS 02/05/17 [History] Furosemide [Lasix] 20 mg PO DAILY 02/05/17 [History] Lisinopril [Zestril] 10 mg PO DAILY 02/05/17 [History] Calcium Carbonate [Calcium] 600 mg PO BID 05/29/17 [History] Meclizine [Antivert] 25 mg PO TID #20 tab 05/29/17 [Rx] HYDROcodone/APAP 5-325MG [Willet 5-325] 1 - 2 tab PO Q4-6H PRN #90 tab 01/09/18 [ Rx] Rivaroxaban [Xarelto] 10 mg PO DAILY #30 tab 01/09/18 [Rx] Sennosides [Senokot] 1 tab PO BID #60 tablet 01/09/18 [Rx] Follow up Appointment(s)/Referral(s): Salbador Martinez MD [Primary Care Provider] - 1 Week Robin Romo DO [Doctor of Osteopathic Medicine] - 2 Weeks Ambulatory/Diagnostic Orders: Continuous Passive Motion (CPM) Machine [DME.AMB1] Time Frame: 3 Weeks, Location : Determined By Patient Activity/Diet/Wound Care/Special Instructions: Weightbearing as tolerated with a walker CPM 5-6h daily Leave dressing intact. May be removed by home care nurse in 10 days. May shower with dressing on. [facility] with questions or concerns [phone] Discharge Disposition: HOME WITH HOME HEALTH SERVICES
[2018-01-09 11:48] LABS: Glucose,Whole Blood 138 mg/dL (75-99)
[2018-01-09 15:52] VITALS: BP 108/52; PULSE 64; RESP 18; TEMP 98
[2018-01-09 20:19] LABS: Hemoglobin A1C 5.9 % (4.0-6.0)
== END 2018-01-09 16:45 | disposition home health service (06) | DRG 470 ==
LOC: 2ORMAIN 05:30 → 3SUR 08:52
PROVIDERS: ADMIT Orthopaedic Surgery; ATTEND Orthopaedic Surgery
PROC: 0SRC069 Replacement of Right Knee Joint with Oxidized Zirconium on Polyethylene Synthetic Substitute, Cemented, Open Approach (ICD-10-PCS; principal; 2018-01-08 07:00)
DX: M17.11 Unilateral primary osteoarthritis, right knee (principal); Z68.42 Body mass index [BMI] 45.0-49.9, adult; E66.01 Morbid (severe) obesity due to excess calories; E11.9 Type 2 diabetes mellitus without complications; E78.2 Mixed hyperlipidemia; I10 Essential (primary) hypertension; M81.0 Age-related osteoporosis without current pathological fracture; Z79.84 Long term (current) use of oral hypoglycemic drugs; Z79.899 Other long term (current) drug therapy; Z79.83 Long term (current) use of bisphosphonates; Z79.82 Long term (current) use of aspirin; Z86.718 Personal history of other venous thrombosis and embolism; Z96.652 Presence of left artificial knee joint; Z83.3 Family history of diabetes mellitus; Z82.49 Family history of ischemic heart disease and other diseases of the circulatory system
CPT/HCPCS: 83036; 85025; 88300

== ENCOUNTER 2018-05-05 03:10 | Emergency (ER) | payer MEDICARE ==
[2018-05-05 03:15] VITALS: BP 184/93; PULSE 69; RESP 22; TEMP 98.4
[2018-05-05] MEDS ORDERED: ORPHENADRINE 30 MG/ML 2 ML VIAL IM STA (03:43)
[2018-05-05] MEDS ORDERED: HYDROmorphone 1 MG/ML 1 ML SYRINGE IM STA (03:43)
--- NOTE | 2018-05-05 03:46 | ED ---
Back Pain HPI - General Source: patient Limitations: no limitations <Kiki Rausch - Last Filed: 05/05/18 17:09> <Peggy Odom - Last Filed: 05/08/18 00:53> - General Chief Complaint: Back Pain/Injury Stated Complaint: back pain Time Seen by Provider: 05/05/18 03:17 - History of Present Illness Initial Comments: 67-year-old female patient presents to the emergency department today for complaints of increased low back pain. Patient states that she has been having an increased to her chronic low back pain for the last couple of weeks. Patient states that she recently has been evaluated by Dr. Tao, states that she did complete an MRI yesterday and does have an EMG scheduled for next week. Patient states that he did start her on naproxen and Ultram. Patient states she has been taking these as directed but it is not helping. Patient states that tonight she is unable to lie down. States that the pain is radiating down the lateral aspect of her right leg. Patient states she does have some tingling to that area as well. Patient states that she has had similar exacerbations of her back pain in the past. States that her last one was about 2 years ago. Patient denies any chest pain, shortness of breath, abdominal pain , upper back pain. She denies any fevers or chills. She denies any loss of bowel or bladder control. She denies any saddle anesthesia. Patient denies any recent rash, nausea, vomiting, diarrhea, constipation, dizziness, weakness, hematuria, dysuria, urinary urgency, urinary frequency, headache, visual changes , or any other complaints. (Kiki Rausch) - Related Data Home Medications Medication Instructions Recorded Confirmed Pravastatin Sodium [Pravachol] 80 mg PO HS 01/15/14 01/08/18 metFORMIN HCL [Glucophage Xr] 500 mg PO DAILY 01/15/14 01/08/18 Ibandronate Sodium [Boniva] 150 mg PO QMONTH 12/11/15 01/08/18 Aspirin [Adult Low Dose Aspirin EC] 81 mg PO HS 02/05/17 01/08/18 Lisinopril [Zestril] 10 mg PO DAILY 02/05/17 01/08/18 Calcium Carbonate [Calcium] 600 mg PO BID 05/29/17 01/08/18 Previous Rx's Medication Instructions Recorded Meclizine [Antivert] 25 mg PO TID #20 tab 05/29/17 Furosemide [Lasix] 20 mg PO DAILY #0 01/09/18 HYDROcodone/APAP 5-325MG [Fallon 1 - 2 tab PO Q4-6H PRN #90 tab 01/09/18 5-325] Rivaroxaban [Xarelto] 10 mg PO DAILY #30 tab 01/09/18 Sennosides [Senokot] 1 tab PO BID #60 tablet 01/09/18 Allergies Allergy/AdvReac Type Severity Reaction Status Date / Time No Known Allergies Allergy Verified 05/05/18 03:15 Review of Systems ROS Other: All systems not noted in ROS Statement are negative. <Kiki Rausch - Last Filed: 05/05/18 17:09> ROS Other: All systems not noted in ROS Statement are negative. <Peggy Odom - Last Filed: 05/08/18 00:53> ROS Statement: Those systems with pertinent positive or pertinent negative responses have been documented in the HPI. Past Medical History Past Medical History: Diabetes Mellitus, Hyperlipidemia, Hypertension, Osteoarthritis (OA) Additional Past Medical History / Comment(s): Lumbar disc History of Any Multi-Drug Resistant Organisms: None Reported Past Surgical History: Tonsillectomy Additional Past Surgical History / Comment(s): D&C, COLONOSCOPIES, BUNIONS, 10-4 -16 LT TKA Past Anesthesia/Blood Transfusion Reactions: No Reported Reaction Past Psychological History: No Psychological Hx Reported Smoking Status: Never smoker Past Alcohol Use History: None Reported Past Drug Use History: None Reported - Past Family History Father Family Medical History: Congestive Heart Failure (CHF) Mother Family Medical History: Cancer Additional Family Medical History / Comment(s): UNSURE WHAT KIND, HEART PROBLEMS <Kiki Rausch - Last Filed: 05/05/18 17:09> General Exam Limitations: no limitations General appearance: alert, in no apparent distress, other (This is a well- developed, obese adult female patient in no acute distress. Vital signs upon presentation are temperature 98.4F, pulse 69, respirations 22, blood pressure 184/93, pulse ox 98% on room air.) Eye exam: Present: normal appearance, PERRL, EOMI. Absent: scleral icterus, conjunctival injection, periorbital swelling ENT exam: Present: normal exam, normal oropharynx, mucous membranes moist Respiratory exam: Present: normal lung sounds bilaterally. Absent: respiratory distress, wheezes, rales, rhonchi, stridor Cardiovascular Exam: Present: regular rate, normal rhythm, normal heart sounds. Absent: systolic murmur, diastolic murmur, rubs, gallop, clicks GI/Abdominal exam: Present: soft, normal bowel sounds. Absent: distended, tenderness, guarding, rebound, rigid Back exam: Present: normal inspection. Absent: vertebral tenderness Neurological exam: Present: alert, oriented X3, CN II-XII intact, other ( Strength to the bilateral lower extremities is 5/5.) Psychiatric exam: Present: normal affect, normal mood Skin exam: Present: warm, dry, intact, normal color. Absent: rash <Kiki Rausch - Last Filed: 05/05/18 17:09> Vital Signs 05/05/18 03:12 Temperature 98.4 F Pulse Rate 69 Respiratory 22 Rate Blood Pressure 184/93 O2 Sat by Pulse 98 Oximetry Medical Decision Making <Kiki Rausch - Last Filed: 05/05/18 17:09> <Peggy Odom - Last Filed: 05/08/18 00:53> - Medical Decision Making 67-year-old female patient presented to the emergency department today for evaluation of exacerbation of her chronic low back pain. Physical examination was unremarkable. There is no vertebral or paraspinal tenderness. Patient is neurologically intact. Patient has been given medication here in the department , we are monitoring to see if this is effective. Patient's care will be handed over to my attending Dr. Odom at 0500 will follow patient until disposition. (Kiki Rausch) Personally saw and reevaluated the patient. Patient was reevaluated, she reported only mild improvement in her back pain with meds. However she states she feels comfortable being discharged home at this time. She'll follow up with her physician as scheduled. Return parameters were discussed patient was discharged home in stable condition. (Peggy Odom) Disposition <Kiki Rausch - Last Filed: 05/05/18 17:09> Is patient prescribed a controlled substance at d/c from ED?: No Time of Disposition: 06:49 <Peggy Odom - Last Filed: 05/08/18 00:53> Clinical Impression: Mechanical back pain Disposition: HOME SELF-CARE Condition: Fair Instructions: Back Pain (ED) Referrals: Salbador Martinez MD [Primary Care Provider] - 1-2 days
[2018-05-05] MEDS ORDERED: KETOROLAC 30 MG/ML 1 ML VIAL IM STA (04:48)
[2018-05-05] MEDS ORDERED: LIDOCAINE 5% PATCH TOPICAL STA (04:56)
== END 2018-05-05 06:55 | disposition home or self-care (01) ==
LOC: EC 03:10
DX: G89.29 Other chronic pain (principal); M54.5 Low back pain; E11.9 Type 2 diabetes mellitus without complications; E78.5 Hyperlipidemia, unspecified; I10 Essential (primary) hypertension; Z79.84 Long term (current) use of oral hypoglycemic drugs; Z79.82 Long term (current) use of aspirin; Z79.899 Other long term (current) drug therapy
CPT/HCPCS: 99283; 96372 ×3; J2360; J1885; J1170

== ENCOUNTER 2018-06-08 15:44 | Emergency (ER) | payer MEDICARE ==
[2018-06-08 16:06] VITALS: TEMP 97.5
--- NOTE | 2018-06-08 16:47 | ED ---
General Adult HPI - General Chief complaint: Back Pain/Injury Stated complaint: Back pain Time Seen by Provider: 06/08/18 16:12 Source: patient, RN notes reviewed Mode of arrival: ambulatory Limitations: no limitations - History of Present Illness Initial comments: Patient is a 67-year-old female with past medical history of chronic low back pain, osteoarthritis and disc degeneration who presents to the Emergency Department with complaints of low back pain that became worse today around 1 PM. She reports that she took 400 mg of ibuprofen this morning around 7 AM and has not taken any pain medication since. She reports that she has been prescribed [place] for her pain but that she doesn't like to take it because it makes her dizzy. She reports that she has pain radiating into her right leg with numbness to her right foot. She has an appointment scheduled for her back injections on the . She denies any kidney disease. She reports that she did take her blood pressure medication today. Patient denies any recent trauma , fever, chills, shortness of breath, chest pain, abdominal pain, nausea or vomiting, bowel or bladder incontinence, saddle anesthesia, headaches or visual changes, or any other complaints. - Related Data Home Medications Medication Instructions Recorded Confirmed Pravastatin Sodium [Pravachol] 80 mg PO HS 01/15/14 01/08/18 metFORMIN HCL [Glucophage Xr] 500 mg PO DAILY 01/15/14 01/08/18 Ibandronate Sodium [Boniva] 150 mg PO QMONTH 12/11/15 01/08/18 Aspirin [Adult Low Dose Aspirin EC] 81 mg PO HS 02/05/17 01/08/18 Lisinopril [Zestril] 10 mg PO DAILY 02/05/17 01/08/18 Calcium Carbonate [Calcium] 600 mg PO BID 05/29/17 01/08/18 Previous Rx's Medication Instructions Recorded Meclizine [Antivert] 25 mg PO TID #20 tab 05/29/17 Furosemide [Lasix] 20 mg PO DAILY #0 01/09/18 HYDROcodone/APAP 5-325MG [[place] 1 - 2 tab PO Q4-6H PRN #90 tab 01/09/18 5-325] Rivaroxaban [Xarelto] 10 mg PO DAILY #30 tab 01/09/18 Sennosides [Senokot] 1 tab PO BID #60 tablet 01/09/18 Allergies Allergy/AdvReac Type Severity Reaction Status Date / Time No Known Allergies Allergy Verified 05/05/18 03:15 Review of Systems ROS Statement: Those systems with pertinent positive or pertinent negative responses have been documented in the HPI. ROS Other: All systems not noted in ROS Statement are negative. Past Medical History Past Medical History: Diabetes Mellitus, Hyperlipidemia, Hypertension, Osteoarthritis (OA) Additional Past Medical History / Comment(s): Lumbar disc History of Any Multi-Drug Resistant Organisms: None Reported Past Surgical History: Tonsillectomy Additional Past Surgical History / Comment(s): D&C, COLONOSCOPIES, BUNIONS, 10- -16 LT TKA Past Anesthesia/Blood Transfusion Reactions: No Reported Reaction Past Psychological History: No Psychological Hx Reported Smoking Status: Never smoker Past Alcohol Use History: None Reported Past Drug Use History: None Reported - Past Family History Father Family Medical History: Congestive Heart Failure (CHF) Mother Family Medical History: Cancer Additional Family Medical History / Comment(s): UNSURE WHAT KIND, HEART PROBLEMS General Exam - General Exam Comments Initial Comments: General: The patient appears to be in moderate distress. The patient is awake and alert, and does not appear acutely ill. Neck: The neck is supple, there is no tenderness. Cardiovascular: There is a regular rate and rhythm. No murmur, rub or gallop is appreciated. Respiratory: Lungs are clear to auscultation, respirations are non-labored, breath sounds are equal. No wheezes, stridor, rales, or rhonchi. Musculoskeletal: No tenderness with palpation of the spine or hips. Lower extremity strength 5 out of 5 bilaterally. Dorsalis pedis pulses are palpable and strong bilaterally. Capillary refill is less than 3 seconds bilateral lower extremities. Sensation somewhat reduced in right foot. Bilateral lower extremity edema patient states is chronic. Neurological: A&O x 3. CN II-XII intact. There are no obvious motor deficits. Coordination appears grossly intact. Speech is normal. Skin: Skin is warm and dry and no rashes or lesions are noted. Psychiatric: Normal mood and affect. Limitations: no limitations Course Vital Signs 06/08/18 06/08/18 16:03 16:33 Temperature 97.5 F L Pulse Rate 71 Respiratory 18 Rate Blood Pressure 178/142 179/79 O2 Sat by Pulse 95 Oximetry Medical Decision Making - Medical Decision Making Patient is a 67-year-old female with chronic low back pain who presents the emergency department with complaints of severe low back pain radiating to the right leg. Blood pressure was originally 178/142. Repeat blood pressure was 179 /79. She states that she did take her blood pressure medicine. Initially, she stated that she did not want a narcotic because it makes her dizzy. She was given Toradol 30 mg IM once without relief. She said she would like to try a narcotic to help relieve her pain. She was given Morphine 4 mg IM once. She reports that her pain has improved and she would like to go home. She denies any dizziness. Disposition Clinical Impression: Low back pain radiating down leg Disposition: HOME SELF-CARE Condition: Good Instructions: Chronic Back Pain (ED) Additional Instructions: Follow up with PCP in 2 days. Return to emergency department if symptoms worsen or any other concerns. Is patient prescribed a controlled substance at d/c from ED?: No Referrals: Salbador Martinez MD [Primary Care Provider] - 1-2 days Time of Disposition: 19:50
[2018-06-08] MEDS ORDERED: KETOROLAC 60 MG/2 ML VIAL IM STA (17:09)
[2018-06-08] MEDS ORDERED: MORPHINE SULFATE 4 MG/ML SYRINGE IM STA (18:42)
[2018-06-08 20:01] VITALS: BP 163/75; PULSE 63; RESP 16
== END 2018-06-08 20:03 | disposition home or self-care (01) ==
LOC: EC 15:44
DX: G89.29 Other chronic pain (principal); M54.5 Low back pain; M79.604 Pain in right leg; R60.0 Localized edema; R20.0 Anesthesia of skin; E78.5 Hyperlipidemia, unspecified; I10 Essential (primary) hypertension; E11.9 Type 2 diabetes mellitus without complications; M19.90 Unspecified osteoarthritis, unspecified site; Z79.82 Long term (current) use of aspirin; Z79.84 Long term (current) use of oral hypoglycemic drugs; Z79.899 Other long term (current) drug therapy
CPT/HCPCS: 99283; 96372 ×2; J2270; J1885

== ENCOUNTER 2018-06-10 00:05 | Emergency (ER) | payer MEDICARE ==
[2018-06-10] MEDS ORDERED: MORPHINE SULFATE 4 MG/ML SYRINGE IM STA (00:44)
[2018-06-10] MEDS ORDERED: DEXAMETHASONE SOD PHOSPHATE 10 MG/ML 1 ML VIAL IM STA (00:44)
--- NOTE | 2018-06-10 00:54 | ED ---
General Adult HPI - General Chief complaint: Back Pain/Injury Stated complaint: Back Pain Time Seen by Provider: 06/10/18 00:26 Source: patient, family, RN notes reviewed, old records reviewed Mode of arrival: wheelchair Limitations: no limitations - History of Present Illness Initial comments: Chief complaint and history of present illness is a 67-year-old female who is return if 24 hours because of persistent right sciatic distribution pain. The patient received steroid shots last week which helped for 2 days. She has shot schedule again in approximately one week. Last night the patient requested a shot of Toradol which apparently was not effective. She did receive morphine 4 mg IM with good effect. She reports when she takes her [place] at home was not very effective. Patient states she's never been on a Medrol dose pack. - Related Data Home Medications Medication Instructions Recorded Confirmed Pravastatin Sodium [Pravachol] 80 mg PO HS 01/15/14 06/10/18 metFORMIN HCL [Glucophage Xr] 500 mg PO DAILY 01/15/14 06/10/18 Ibandronate Sodium [Boniva] 150 mg PO QMONTH 12/11/15 06/10/18 Aspirin [Adult Low Dose Aspirin EC] 81 mg PO HS 02/05/17 06/10/18 Lisinopril [Zestril] 10 mg PO DAILY 02/05/17 06/10/18 Calcium Carbonate [Calcium] 600 mg PO BID 05/29/17 06/10/18 Previous Rx's Medication Instructions Recorded Meclizine [Antivert] 25 mg PO TID #20 tab 05/29/17 Furosemide [Lasix] 20 mg PO DAILY #0 01/09/18 HYDROcodone/APAP 5-325MG [[place] 1 - 2 tab PO Q4-6H PRN #90 tab 01/09/18 5-325] Rivaroxaban [Xarelto] 10 mg PO DAILY #30 tab 01/09/18 Sennosides [Senokot] 1 tab PO BID #60 tablet 01/09/18 methylPREDNISolone Dose Pack 4 mg PO DIRECTED #21 package 06/10/18 [Medrol Dose Pack] Allergies Allergy/AdvReac Type Severity Reaction Status Date / Time No Known Allergies Allergy Verified 05/05/18 03:15 Review of Systems ROS Statement: Those systems with pertinent positive or pertinent negative responses have been documented in the HPI. Review of systems no headache or visual acuity changes no chest pain or shortness of breath no GI/ problems. No complaint of numbness or tingling down her leg just pain starts in the right lumbar area goes down to the buttock. And then from the lateral aspect of the knee down to the foot. No foot drop. Patient denies any difficulty urinating or bowel movements. Denies any rashes. All systems are reviewed past medical problems significant for non- insulin-dependent diabetes mellitus, hyperlipidemia, hypertension, osteoarthritis and lumbar disc disease. The patient's surgeries include tonsillectomy, D&C's several colonoscopies. The patient's nonsmoker nondrinker. Patient denies any ALLERGIES. ROS Other: All systems not noted in ROS Statement are negative. Past Medical History Past Medical History: Diabetes Mellitus, Hyperlipidemia, Hypertension, Osteoarthritis (OA) Additional Past Medical History / Comment(s): Lumbar disc History of Any Multi-Drug Resistant Organisms: None Reported Past Surgical History: Tonsillectomy Additional Past Surgical History / Comment(s): D&C, COLONOSCOPIES, BUNIONS, 10-4 -16 LT TKA Past Anesthesia/Blood Transfusion Reactions: No Reported Reaction Past Psychological History: No Psychological Hx Reported Smoking Status: Never smoker Past Alcohol Use History: None Reported Past Drug Use History: None Reported - Past Family History Father Family Medical History: Congestive Heart Failure (CHF) Mother Family Medical History: Cancer Additional Family Medical History / Comment(s): UNSURE WHAT KIND, HEART PROBLEMS General Exam - General Exam Comments Initial Comments: General: The patient is awake and alert, here because of recurrent chronic discomfort pain that radiates from the right lumbar area down the right leg. Vital signs shows temperature 98.0 pulse 70 respiratory rate 20 pulse ox 95% room air blood pressure 169/88. Eye: Pupils are equal, round and reactive to light, extra-ocular movements are intact ; there is normal conjunctiva bilaterally. No signs of icterus. Ears, nose, mouth and throat: There are moist mucous membranes Neck: The neck is supple, Cardiovascular: There is a regular rate and rhythm. No murmur, rub or gallop is appreciated. Respiratory: Lungs are clear to auscultation, respirations are non-labored, breath sounds are equal. No wheezes, stridor, rales, or rhonchi. Gastrointestinal: No complaint of nausea vomiting or diarrhea. No difficulty urinating or bowel movements. Patient has chronic pain to the right paralumbar region that radiates down to the buttock and then from the knee down the lateral aspect of her right foot. The patient has no difficulty wiggling her toes abating her ankles. She has bilateral knee replacements. Movement limited by pain. Neurovascular status of foot intact. Chronic bilateral lower extremity swelling. Neurological: Neurologically intact., History of lumbar disc disease. Skin: Skin is warm and dry and no rashes or lesions are noted. Past history of shingles. Psychiatric: Cooperative, Limitations: no limitations Course Vital Signs 06/10/18 00:17 Temperature 98.0 F Pulse Rate 70 Respiratory 20 Rate Blood Pressure 169/88 O2 Sat by Pulse 95 Oximetry Medical Decision Making - Medical Decision Making Medical decision making; this is a 67-year-old female here with her . She is return if 24 hours because of recurrent chronic right lumbar pain that radiates down to the lateral aspect of her right leg. No difficulties or problems urinating or bowel movements. No rashes noted. While in emergency room the patient received a shot of Decadron and morphine. She'll be placed on a Medrol Dosepak and advised to continue with home pain medications as well as calling following up with her doctor. Disposition Clinical Impression: Chronic lumbosacral pain Disposition: HOME SELF-CARE Condition: Fair Instructions: Chronic Back Pain (ED), Lumbar Radiculopathy (ED) Additional Instructions: Continuous home pain medications. Take Medrol Dosepak as directed. Call follow up with your family physician and your orthopedic surgeon and your pain management doctor. Return emergency room as needed Prescriptions: methylPREDNISolone Dose Pack [Medrol Dose Pack] 4 mg PO DIRECTED #21 package Is patient prescribed a controlled substance at d/c from ED?: No Referrals: Salbador Martinez MD [Primary Care Provider] - 1-2 days Time of Disposition: 00:54
[2018-06-10 01:26] VITALS: BP 149/78; PULSE 78; RESP 18; TEMP 97
== END 2018-06-10 01:26 | disposition home or self-care (01) ==
LOC: EC 00:05
DX: G89.29 Other chronic pain (principal); M54.5 Low back pain; E11.9 Type 2 diabetes mellitus without complications; E78.5 Hyperlipidemia, unspecified; I10 Essential (primary) hypertension; Z79.84 Long term (current) use of oral hypoglycemic drugs; Z79.82 Long term (current) use of aspirin; Z79.899 Other long term (current) drug therapy
CPT/HCPCS: 99283; 96372 ×2; J2270; J1100

== ENCOUNTER → 2018-12-26 | Outpatient (CLI) | payer MEDICARE ==
--- NOTE | 2018-12-26 16:36 | BD ---
EXAMINATION TYPE: Axial Bone Density DATE OF EXAM: 12/26/2018 COMPARISON: 2014 CLINICAL HISTORY: 67-year-old female osteoporosis Height: 5'1 1/4 Weight: 277 FRAX RISK QUESTIONS: Glucocorticoids (More than 3mos): y (Ex: prednisone, prednisolone, methylprednisolone, dexamethasone, and hydrocortisone). Secondary Osteoporosis: RISK FACTORS HISTORY OF: Family History of Osteoporosis: y Active: n Postmenopausal woman: y Lost more than 2 inches in height since high school: y MEDICATIONS: Additional Medications: ibandronate Additional History: EXAM MEASUREMENTS: Bone mineral densitometry was performed using the Graze System. Bone mineral density as measured about the Lumbar spine is: ----- L1-L4(G/cm2): 1.544 T Score Values are as follows: ----- L2: 2.4 ----- L3: 5.1 ----- L4: 4.0 ----- L1-L4: 3.0 Bone mineral density has: Increased 8.7% since study of: 06/11/2015 Bone mineral density about the R hip (g/cm2): 0.957 Bone mineral density about the L hip (g/cm2): 0.919 T Score values are as follows: -----R Neck: -0.6 -----L Neck: -0.9 -----R Total: -0.2 -----L Total: 0.0 Bone mineral density has: Increased 2.2% since study of: 06/11/2015 IMPRESSION: Normal (Values between +1 and -1 indicate normal bone mass). However, note that measurements border on osteopenia at the left femoral neck. Consider repeating this study in 5 years or sooner if there is some new clinical indication. NOTE: T-SCORE=SD OF THE YOUNG ADULT MEAN.
--- NOTE | 2018-12-28 14:04 | MM ---
Reason for exam: screening (asymptomatic). Last mammogram was performed 1 year ago. History: Patient is postmenopausal. Benign stereotactic core biopsy of the left breast, June 25, 2004. Core biopsy of the left breast. Took estrogen for 3 years. Physical Findings: A clinical breast exam by your physician is recommended on an annual basis and results should be correlated with mammographic findings. MG 3D Screening Mammo W/Cad Bilateral CC and MLO view(s) were taken. Prior study comparison: December 12, 2017, bilateral MG 3d screening mammo w/cad. October 27, 2016, bilateral MG 3d screening mammo w/cad. The breast tissue is heterogeneously dense. This may lower the sensitivity of mammography. There are benign appearing round calcifications bilaterally. Previous mammotome biopsy in the left breast. There is no discrete abnormality. ASSESSMENT: Benign, BI-RAD 2 RECOMMENDATION: Routine screening mammogram of both breasts in 1 year.
== END | disposition home or self-care (01) ==
LOC: RADMAMWWP 14:48
PROVIDERS: ATTEND Internal Medicine
DX: Z12.31 Encounter for screening mammogram for malignant neoplasm of breast (principal); M85.852 Other specified disorders of bone density and structure, left thigh
CPT/HCPCS: 77063; 77067; 77080

== ENCOUNTER 2019-05-08 09:26 | Emergency (ER) | payer MEDICARE ==
[2019-05-08 09:33] VITALS: RESP 18
--- NOTE | 2019-05-08 10:08 | ED ---
General Adult HPI - General Chief complaint: Abdominal Pain Stated complaint: right side pain/SOB Time Seen by Provider: 05/08/19 10:05 Source: patient, RN notes reviewed Mode of arrival: ambulatory Limitations: no limitations - History of Present Illness Initial comments: 68-year-old female with a past medical history of diabetes mellitus, hyperlipidemia, hypertension, DDD presents to the emergency room for right-sided rib pain. Patient states has been ongoing for 3 days. States it is worse with movement and better when she is lying flat. She denies any nausea vomiting. Denies fevers or chills. Denies dysuria or fevers. States that when this started she was walking around her house and felt a sudden pain. States that sometimes when the pain becomes severe the sharpness of it takes her breath away. Patient has no other complaints at this time including shortness of breath, chest pain, abdominal pain, nausea or vomiting, headache, or visual changes. - Related Data Home Medications Medication Instructions Recorded Confirmed Pravastatin Sodium [Pravachol] 80 mg PO HS 01/15/14 05/08/19 metFORMIN HCL [Glucophage Xr] 500 mg PO W/SUPPER 01/15/14 05/08/19 Ibandronate Sodium [Boniva] 150 mg PO QMONTH 12/11/15 05/08/19 Aspirin [Adult Low Dose Aspirin EC] 81 mg PO HS 02/05/17 05/08/19 Lisinopril [Zestril] 10 mg PO DAILY 02/05/17 05/08/19 Calcium Carbonate [Calcium] 600 mg PO DAILY 05/29/17 05/08/19 Previous Rx's Medication Instructions Recorded Furosemide [Lasix] 20 mg PO DAILY #0 01/09/18 Lidocaine 5% Patch [Lidoderm 5% 1 patch TOPICAL DAILY PRN 5 Days 05/08/19 Patch] #5 patch Allergies Allergy/AdvReac Type Severity Reaction Status Date / Time No Known Allergies Allergy Verified 05/08/19 09:50 Review of Systems ROS Statement: Those systems with pertinent positive or pertinent negative responses have been documented in the HPI. ROS Other: All systems not noted in ROS Statement are negative. Past Medical History Past Medical History: Diabetes Mellitus, Hyperlipidemia, Hypertension, Osteoarthritis (OA) Additional Past Medical History / Comment(s): Lumbar disc History of Any Multi-Drug Resistant Organisms: None Reported Past Surgical History: Orthopedic Surgery, Tonsillectomy Additional Past Surgical History / Comment(s): D&C, COLONOSCOPIES, BUNIONS, 10-4-16 LT TKA, R TKA Past Anesthesia/Blood Transfusion Reactions: No Reported Reaction Past Psychological History: No Psychological Hx Reported Smoking Status: Never smoker Past Alcohol Use History: None Reported Past Drug Use History: None Reported - Past Family History Father Family Medical History: Congestive Heart Failure (CHF) Mother Family Medical History: Cancer Additional Family Medical History / Comment(s): UNSURE WHAT KIND, HEART PROBLEMS General Exam Limitations: no limitations General appearance: alert, in no apparent distress Head exam: Present: atraumatic, normocephalic, normal inspection Eye exam: Present: normal appearance, PERRL, EOMI. Absent: scleral icterus, conjunctival injection, periorbital swelling ENT exam: Present: normal exam, mucous membranes moist Neck exam: Present: normal inspection, full ROM. Absent: tenderness, meningismus, lymphadenopathy Respiratory exam: Present: normal lung sounds bilaterally. Absent: respiratory distress, wheezes, rales, rhonchi, stridor Cardiovascular Exam: Present: regular rate, normal rhythm, normal heart sounds. Absent: systolic murmur, diastolic murmur, rubs, gallop, clicks GI/Abdominal exam: Present: soft, tenderness (RUQ tendernss + bruce sign), normal bowel sounds. Absent: distended, guarding, rebound, rigid Neurological exam: Present: alert Course Vital Signs 05/08/19 09:30 Temperature 98.3 F Pulse Rate 65 Respiratory 18 Rate Blood Pressure 169/96 O2 Sat by Pulse 100 Oximetry Medical Decision Making - Medical Decision Making 68-year-old female with a past medical history of diabetes, hyperlipidemia, hypertension, DDD presents for right-sided back and rib pain. States this has been ongoing for about 2 days. Patient states she was walking around her house and she felt a sudden pain. States that pain resolved and she is resting and lying flat but when she goes to sit up and twist it hurts. She takes a deep breath it hurts. Denies any falls. Vitals are stable. On exam patient has tenderness along the lower right side ribs as well as the right upper quadrant. No lower abdominal tenderness. No epigastric tenderness. No spinal tenderness. CBC and CMP are unremarkable. Urine is negative. Although this is more consistent with a musculoskeletal picture ultrasound was ordered given patient's right upper quadrant tenderness which showed hepatomegaly with a normal gallbladder. Chest x-ray shows no acute cardiopulmonary process. Patient reevaluated. Pain is 1 while she is resting. At this time patient likely is musculoskeletal symptoms. Shee will follow up with primary care. However requested she return should any worsening symptoms such as chest pain or shortness of breath. Discussed this case with Dr ng who agrees with diagnosis and treatment plan. - Lab Data Result diagrams: 05/08/19 10:35 05/08/19 10:35 Lab Results 05/08/19 05/08/19 05/08/19 Range/Units 10:35 10:35 11:30 WBC 3.9 (3.8-10.6) k/uL RBC 4.56 (3.80-5.40) m/uL Hgb 14.3 (11.4-16.0) gm/dL Hct 42.1 (34.0-46.0) % MCV 92.3 (80.0-100.0) fL MCH 31.4 (25.0-35.0) pg MCHC 34.0 (31.0-37.0) g/dL RDW 13.2 (11.5-15.5) % Plt Count 162 (150-450) k/uL Neutrophils % 74 % Lymphocytes % 17 % Monocytes % 5 % Eosinophils % 3 % Basophils % 1 % Neutrophils # 2.9 (1.3-7.7) k/uL Lymphocytes # 0.7 L (1.0-4.8) k/uL Monocytes # 0.2 (0-1.0) k/uL Eosinophils # 0.1 (0-0.7) k/uL Basophils # 0.0 (0-0.2) k/uL Sodium 139 (137-145) mmol/L Potassium 4.6 (3.5-5.1) mmol/L Chloride 106 (98-107) mmol/L Carbon Dioxide 25 (22-30) mmol/L Anion Gap 8 mmol/L BUN 18 H (7-17) mg/dL Creatinine 0.66 (0.52-1.04) mg/dL Est GFR (CKD-EPI)AfAm >90 (>60 ml/min/1.73 sqM) Est GFR (CKD-EPI)NonAf 90 (>60 ml/min/1.73 sqM) Glucose 150 H (74-99) mg/dL Calcium 9.6 (8.4-10.2) mg/dL Total Bilirubin 0.4 (0.2-1.3) mg/dL AST 19 (14-36) U/L ALT 17 (9-52) U/L Alkaline Phosphatase 73 (38-126) U/L Total Protein 6.2 L (6.3-8.2) g/dL Albumin 3.8 (3.5-5.0) g/dL Amylase 64 (30-110) U/L Lipase 105 (23-300) U/L Urine Color Yellow Urine Appearance Clear (Clear) Urine pH 6.5 (5.0-8.0) Ur Specific [place] 1.021 (1.001-1.035) Urine Protein Negative (Negative) Urine Glucose (UA) Negative (Negative) Urine Ketones Negative (Negative) Urine Blood Negative (Negative) Urine Nitrite Negative (Negative) Urine Bilirubin Negative (Negative) Urine Urobilinogen <2.0 (<2.0) mg/dL Ur Leukocyte Esterase Negative (Negative) Disposition Clinical Impression: Musculoskeletal back pain Disposition: HOME SELF-CARE Condition: Good Instructions (If sedation given, give patient instructions): Back Pain (ED) Additional Instructions: Please take Motrin and Tylenol for pain. Use lidocaine patches as directed. Follow up with primary care in 1-2 days. If you have any worsening symptoms return here to the emergency department. Prescriptions: Lidocaine 5% Patch [Lidoderm 5% Patch] 1 patch TOPICAL DAILY PRN 5 Days #5 patch PRN Reason: Pain Is patient prescribed a controlled substance at d/c from ED?: No Referrals: Diana Newman MD [Primary Care Provider] - 1-2 days Time of Disposition: 13:08
[2019-05-08] MEDS ORDERED: SODIUM CHLORIDE 0.9% 500 ML 500 ML IV STA (10:18)
[2019-05-08] MEDS ORDERED: KETOROLAC 30 MG/ML 1 ML VIAL IVP STA (10:19)
[2019-05-08 10:42] LABS: Basophils % (A) 1 %; Eosinophils # (A) 0.1 k/uL (0-0.7); Eosinophils % (A) 3 %; HCT 42.1 % (34.0-46.0); HGB 14.3 gm/dL (11.4-16.0); Lymphocytes # (A) 0.7 k/uL (1.0-4.8); Lymphocytes % (A) 17 %; MCH 31.4 pg (25.0-35.0); MCV 92.3 fL (80.0-100.0); Mean Platelet Volume 6.9; Monocytes # (A) 0.2 k/uL (0-1.0); Monocytes % (A) 5 %; Neutrophils # (A) 2.9 k/uL (1.3-7.7); Neutrophils % (A) 74 %; Platelet Count 162 k/uL (150-450); RBC 4.56 m/uL (3.80-5.40); RDW 13.2 % (11.5-15.5); WBC 3.9 k/uL (3.8-10.6)
[2019-05-08 10:50] LABS: ALT 17 U/L (9-52); AST 19 U/L (14-36); African American GFR (CKD) >90 (>60 ml/min/1.73 sqM); Albumin 3.8 g/dL (3.5-5.0); Alkaline Phosphatase 73 U/L (38-126); Amylase 64 U/L (30-110); Anion Gap 8 mmol/L; Blood Urea Nitrogen 18 mg/dL (7-17); Calcium 9.6 mg/dL (8.4-10.2); Carbon Dioxide 25 mmol/L (22-30); Chloride 106 mmol/L (98-107); Glucose 150 mg/dL (74-99); Potassium 4.6 mmol/L (3.5-5.1); Sodium 139 mmol/L (137-145); Total Bilirubin 0.4 mg/dL (0.2-1.3); Total Protein 6.2 g/dL (6.3-8.2)
--- NOTE | 2019-05-08 11:23 | XR ---
EXAMINATION TYPE: XR chest 2V DATE OF EXAM: 05/08/2019 COMPARISON: 05/26/2016 INDICATION: Right rib pain difficulty in breathing TECHNIQUE: Frontal and lateral views of the chest are obtained. FINDINGS: The heart size is normal. The pulmonary vasculature is normal. The lungs are clear. IMPRESSION: 1. No acute pulmonary process.
--- NOTE | 2019-05-08 12:00 | US ---
EXAMINATION TYPE: US abdomen limited DATE OF EXAM: 05/08/2019 COMPARISON: NONE CLINICAL HISTORY: ruq. RUQ pain EXAM MEASUREMENTS: Liver Length: 21.7 cm. Normal less than 15.5 cm. Gallbladder Wall: 0.2 cm CBD: 0.5 cm Right Kidney: 10.3 x 4.8 x 4.0 cm Suboptimal exam due to overlying bowel gas and body habitus Pancreas: Echogenic in appearance. Tail not well visualized due to overlying bowel gas Liver: enlarged in size Gallbladder: wnl Evidence for sonographic Colindres's sign: neg CBD: wnl Right Kidney: wnl IMPRESSION: 1. Hepatomegaly.
[2019-05-08 12:45] LABS: Appearance,Urine Clear (Clear); Bilirubin,Urine Negative (Negative); Blood,Urine Negative (Negative); Color,Urine Yellow; Glucose,Urine (UA) Negative (Negative); Ketones,Urine Negative (Negative); Leukocyte Esterase,Urine Negative (Negative); Nitrite,Urine Negative (Negative); PH, Urine 6.5 (5.0-8.0); Protein,Urine Negative (Negative); Specific Gravity,Urine 1.021 (1.001-1.035); Urobilinogen,Urine <2.0 mg/dL (<2.0)
[2019-05-08 13:31] VITALS: BP 134/87; PULSE 87; TEMP 97.4
== END 2019-05-08 13:30 | disposition home or self-care (01) ==
LOC: EC 09:26
DX: M54.9 Dorsalgia, unspecified (principal); R16.0 Hepatomegaly, not elsewhere classified; R07.81 Pleurodynia; E11.9 Type 2 diabetes mellitus without complications; E78.5 Hyperlipidemia, unspecified; I10 Essential (primary) hypertension; M19.90 Unspecified osteoarthritis, unspecified site; Z79.82 Long term (current) use of aspirin; Z79.84 Long term (current) use of oral hypoglycemic drugs; Z79.899 Other long term (current) drug therapy; Z96.653 Presence of artificial knee joint, bilateral
CPT/HCPCS: 36415; 80053; 82150; 83690; 85025; 81003; 71046; 76705; 99284; 96374; 96361 ×3; J1885

== ENCOUNTER 2019-09-29 14:57 | Emergency (ER) | payer MEDICARE ==
[2019-09-29 15:03] VITALS: RESP 20; TEMP 97.9
[2019-09-29] MEDS ORDERED: MORPHINE SULFATE 4 MG/ML SYRINGE IM STA (15:20)
[2019-09-29] MEDS ORDERED: CYCLOBENZAPRINE 5 MG TAB PO STA (15:20)
[2019-09-29] MEDS ORDERED: predniSONE 50 MG TAB PO STA (15:20)
[2019-09-29] MEDS ORDERED: KETOROLAC 60 MG/2 ML VIAL IM STA (16:06)
--- NOTE | 2019-09-29 16:37 | XR ---
EXAMINATION TYPE: XR lumbar spine 2 or 3V DATE OF EXAM: 09/29/2019 CLINICAL HISTORY: Acute on chronic back pain TECHNIQUE: Frontal and lateral images of the lumbar spine are obtained. COMPARISON: None FINDINGS: There is dextroscoliosis of the lumbar spine. There are 5 lumbar type vertebral bodies. The re is minimal retrolisthesis of L3 on L4 and L2 on L3 with grade 1 anterolisthesis of L5 on S1. Multi level facet arthropathy, intervertebral disc space narrowing, endplate sclerosis, vacuum disc phenome non, and anterior osteophytes are seen. No vertebral body height loss. IMPRESSION: No acute fracture in the lumbar spine. Dextroscoliosis and advanced degenerative disc di sease with multilevel malalignment is likely on a degenerative basis.
--- NOTE | 2019-09-29 16:57 | ED ---
General Adult HPI - General Chief complaint: Back Pain/Injury Stated complaint: Back pain Time Seen by Provider: 09/29/19 15:12 Source: patient, RN notes reviewed, old records reviewed Mode of arrival: wheelchair Limitations: no limitations - History of Present Illness Initial comments: 68-year-old female patient past history of chronic lumbar back pain, d egenerative disc disease, type 2 diabetes, hypertension presents to ED for chief complaint of right paralumbar discomfort. She reports that she has follow-up with pain management for this very same had injections on Monday. She reports that she does have pain in her right paralumbar region extending down the lateral aspect of her right leg. Denies any other areas of pain. Reports this does feel identical to her chronic back pain in the past. Reports that she does have some paresthesias on the lateral aspect of the right lower extremity. Denies any saddle anesthesia. Denies any other areas of paresthesias. Denies any other complaints. Systemic: Pt denies fatigue, fever/chills, rash. Pt denies weakness, night sweats, weight loss. Neuro: Pt denies headache, visual disturbances, syncope or pre-syncope. HEENT: Pt denies ocular discharge or irritation, otalgia, rhinorrhea, pharyngitis or notable lymphadenopathy. Cardiopulmonary: Pt denies chest pain, SOB, heart palpitations, dyspnea on exertion. Abdominal/GI: Pt denies abdominal pain, n/v/d. : Pt denies dysuria, burning w/ urination, frequency/urgency. Denies new onset urinary or bowel incontinence. MSK: Pt denies myalgia, loss of strength or function in extremities. Neuro: Pt denies new onset weakness, paresthesias. - Related Data Home Medications Medication Instructions Recorded Confirmed Pravastatin Sodium [Pravachol] 80 mg PO HS 01/15/14 05/08/19 metFORMIN HCL [Glucophage Xr] 500 mg PO W/SUPPER 01/15/14 05/08/19 Ibandronate Sodium [Boniva] 150 mg PO QMONTH 12/11/15 05/08/19 Aspirin [Adult Low Dose Aspirin EC] 81 mg PO HS 02/05/17 05/08/19 Lisinopril [Zestril] 10 mg PO DAILY 02/05/17 05/08/19 Calcium Carbonate [Calcium] 600 mg PO DAILY 05/29/17 05/08/19 Previous Rx's Medication Instructions Recorded Furosemide [Lasix] 20 mg PO DAILY #0 01/09/18 Lidocaine 5% Patch [Lidoderm 5% 1 patch TOPICAL DAILY PRN 5 Days 05/08/19 Patch] #5 patch Cyclobenzaprine [Flexeril] 1 tab PO TID PRN #20 tablet 09/29/19 predniSONE 50 mg PO DAILY #4 tab 09/29/19 Allergies Allergy/AdvReac Type Severity Reaction Status Date / Time No Known Allergies Allergy Verified 09/29/19 15:03 Review of Systems ROS Statement: Those systems with pertinent positive or pertinent negative responses have been documented in the HPI. ROS Other: All systems not noted in ROS Statement are negative. Past Medical History Past Medical History: Diabetes Mellitus, Hyperlipidemia, Hypertension, Osteoarthritis (OA) Additional Past Medical History / Comment(s): Lumbar disc, lower back pain, sciatia. History of Any Multi-Drug Resistant Organisms: None Reported Past Surgical History: Orthopedic Surgery, Tonsillectomy Additional Past Surgical History / Comment(s): D&C, COLONOSCOPIES, BUNIONS, 10--16 LT TKA, R TKA Past Anesthesia/Blood Transfusion Reactions: No Reported Reaction Past Psychological History: No Psychological Hx Reported Smoking Status: Never smoker Past Alcohol Use History: None Reported Past Drug Use History: None Reported - Past Family History Father Family Medical History: Congestive Heart Failure (CHF) Mother Family Medical History: Cancer Additional Family Medical History / Comment(s): UNSURE WHAT KIND, HEART PROBLEMS General Exam - General Exam Comments Initial Comments: Constitutional: NAD, AOX3, Pt has pleasant affect. HEENT: NC/AT, trachea midline, neck supple, no lymphadenopathy. Posterior pharynx non erythematous, without exudates. External ears appear normal, without discharge. Mucous membranes moist. Eyes PERRLA, EOM intact. There is no scleral icterus. No pallor noted. Cardiopulmonary: RRR, no murmurs, rubs or gallops, no JVD noted. Lungs CTAB in anterior and posterior oquendo. No peripheral edema. Abdominal exam: Abdomen soft and non-distended. Abdomen non-tender to palpation in all 4 quadrants. Bowel sounds active in LLQ. No hepatosplenomegaly. No ecchymosis Neuro: CN II-XII grossly intact. No nuchal rigidity. No raccon eyes, no mathews sign, no hemotympanum. No cervical spinal tenderness. MSK: Right paralumbar to my tender to palpation. No skin changes. 5 out of 5 strength psoas quadriceps region. Ambulatory without difficulty. No posterior calf tenderness bilaterally, homans sign negative bilaterally. Posterior tibialis and radial pulse +2 bilaterally. Sensation intact in upper and lower extremities. Full active ROM in upper and lower extremities, 5/5 stregnth. Right straight leg raise positive, left negative. Limitations: no limitations Course Vital Signs 09/29/19 15:00 Temperature 97.9 F Pulse Rate 83 Respiratory 20 Rate Blood Pressure 154/73 O2 Sat by Pulse 95 Oximetry Medical Decision Making - Medical Decision Making 68-year-old female patient past history of chronic lumbar back pain, degenerative disc disease, type 2 diabetes, hypertension presents to ED for chief complaint of right paralumbar discomfort. She reports that she has follow-up with pain management for this very same had injections on Monday. She reports that she does have pain in her right paralumbar region extending down the lateral aspect of her right leg. Denies any other areas of pain. Reports this does feel identical to her chronic back pain in the past. Reports that she does have some paresthesias on the lateral aspect of the right lower extremity. Denies any saddle anesthia. Pt VSS, afebrile. Physical exam displayed: Right paralumbar to my tender to palpation. No skin changes. 5 out of 5 strength psoas quadriceps region. Ambulatory without difficulty. No posterior calf tenderness bilaterally, homans sign negative bilaterally. Posterior tibialis and radial pulse +2 bilaterally. Sensation intact in upper and lower extremities. Full active ROM in upper and lower extremities, 5/5 stregnth. Right straight leg raise positive, left negative. Lymphoma lumbar spine displayed multilevel degenerative disc disease. CT abdomen and pelvis without contrast was performed which displayed moderate to severe degenerative disc disease. No hydronephrosis or nephrolithiasis. Hepatosplenomegaly. Diverticulosis by diverticulitis. Calcified likely [place] myoma. These findings were displayed the patient. Patient feeling much improved. She'll be discharged with steroids, muscle relaxers, Tylenol 3, and outpatinet orthopedic follow up. Case discussed with Dr. Chowdary. Disposition Clinical Impression: Lumbar back sprain Disposition: HOME SELF-CARE Condition: Stable Instructions (If sedation given, give patient instructions): Acute Low Back Froy n (ED) Additional Instructions: Take medications as directed. Return to ER if condition worsens in anyway. follow up with PCP and orthopedic consult tomorrow. Use Tylenol for discomfort. Wait until steroids are completed before resuming ibuprofen. Prescriptions: Cyclobenzaprine [Flexeril] 1 tab PO TID PRN #20 tablet PRN Reason: muscle spasm predniSONE 50 mg PO DAILY #4 tab Is patient prescribed a controlled substance at d/c from ED?: No Referrals: Diana Newman MD [Primary Care Provider] - 1-2 days Danielle Nagy DO [Doctor of Osteopathic Medicine] - 1-2 days
--- NOTE | 2019-09-29 17:43 | CT ---
EXAMINATION TYPE: CT abdomen pelvis wo con DATE OF EXAM: 09/29/2019 COMPARISON: None HISTORY: Back pain, hx sciatica, pt gets injections for pain CT DLP: 1456.2 mGycm Automated exposure control for dose reduction was used. TECHNIQUE: Helical acquisition of images was performed from the lung bases through the pelvis. FINDINGS: LUNG BASES: Bibasilar subsegmental dependent atelectasis. Cardiomediastinal silhouette is partially v isualized but enlarged. Small hiatal hernia seen. LIVER/GB: Hepatomegaly with the liver extending to the iliac crest. No radiopaque calculi in the gall bladder. PANCREAS: No significant abnormality is seen. SPLEEN: Spleen is enlarged measuring 13.1 cm in craniocaudal dimension but 15.4 cm in longitudinal di mension. ADRENALS: No significant abnormality is seen. KIDNEYS: No hydronephrosis or nephrolithiasis. FREE AIR: No free air is visualized ADENOPATHY: No greater than 1 cm short axis lymph node in the abdomen or pelvis. REPRODUCTIVE ORGANS: Large calcified probable dystrophic leiomyoma measures 2.0 cm. OSSEOUS STRUCTURES: There is grade 1 anterolisthesis of L5 on S1. Moderate to severe multilevel dege nerative disc disease of the lumbar spine is most pronounced at L2-L4. There is minimal retrolisthesi s of L2 on L3 and L3 on L4 and multilevel facet arthropathy. BOWEL: Numerous diverticula are seen throughout the colon without pericolonic fat stranding. OTHER: There is a small periumbilical hernia containing fat. IMPRESSION: 1. MODERATE TO SEVERE DEGENERATIVE DISC DISEASE OF THE LUMBAR SPINE WITH MULTILEVEL MALALIGNMENT, LIK ANABELL ON A DEGENERATIVE BASIS IN THIS PATIENT WITH BACK PAIN. 2. NO HYDRONEPHROSIS OR NEPHROLITHIASIS. 3. HEPATOSPLENOMEGALY. 4. NUMEROUS SCATTERED COLONIC DIVERTICULA WITH NO CURRENT EVIDENCE OF ACUTE DIVERTICULITIS. 5. DYSTROPHIC CALCIFIED PROBABLE LEIOMYOMA.
[2019-09-29] MEDS ORDERED: ACET/COD 300 MG/30 MG STARTER PACK 6 TAB BTL PO STA (18:07)
[2019-09-29 18:24] VITALS: BP 134/77; PULSE 79
== END 2019-09-29 18:28 | disposition home or self-care (01) ==
LOC: EC 14:57
DX: S33.5XXA Sprain of ligaments of lumbar spine, initial encounter (principal); M51.36 Other intervertebral disc degeneration, lumbar region; R16.2 Hepatomegaly with splenomegaly, not elsewhere classified; K57.30 Diverticulosis of large intestine without perforation or abscess without bleeding; E11.9 Type 2 diabetes mellitus without complications; E78.5 Hyperlipidemia, unspecified; I10 Essential (primary) hypertension; M19.90 Unspecified osteoarthritis, unspecified site; Z79.82 Long term (current) use of aspirin; Z79.84 Long term (current) use of oral hypoglycemic drugs; Z79.899 Other long term (current) drug therapy; Z96.653 Presence of artificial knee joint, bilateral; X58.XXXA Exposure to other specified factors, initial encounter
CPT/HCPCS: 72100; 74176; 99284; 96372 ×2; J2270; J1885; J7512

== ENCOUNTER 2019-09-30 06:12 | Observation (INO) | payer MEDICARE ==
[2019-09-30] MEDS ORDERED: ORPHENADRINE 30 MG/ML 2 ML VIAL IM STA (06:57)
[2019-09-30] MEDS ORDERED: HYDROmorphone 1 MG/ML 1 ML SYRINGE IM STA (06:57)
--- NOTE | 2019-09-30 06:59 | ED ---
Back Pain HPI - General Chief Complaint: Back Pain/Injury Stated Complaint: Revisit - back pain Time Seen by Provider: 09/30/19 06:30 Source: patient, RN notes reviewed, old records reviewed Limitations: no limitations - History of Present Illness Initial Comments: 68 year old female presents today for intractable back pain. Patient was seen earlier today in the hospital had thorough workup including CT. Patient is discharged with tylenol with codeine, after pain meds. She reports 2 hours after being discharged stating that her pain is not controlled. Patient states that she receives injections by Dr. Tao and had her last injections on Monday. She reports she's been having worsening pain since that time. Patient states she's had no loss control of her urine or bowel habits. She denies any associated abdominal pain. Pain shoots down her right leg. Patient has no fevers or chills. Denies other symptoms including diarrhea, consitpaition. She reports that she has tried other pain medications without relief and only takes tylenol at home. She also reports to getting steriods and muscle relaxer while in ED earlier today. - Related Data Home Medications Medication Instructions Recorded Confirmed Pravastatin Sodium [Pravachol] 80 mg PO HS 01/15/14 09/30/19 Ibandronate Sodium [Boniva] 150 mg PO Q30D 12/11/15 09/30/19 Aspirin [Adult Low Dose Aspirin EC] 81 mg PO HS 02/05/17 09/30/19 Calcium Carbonate [Calcium] 600 mg PO BID 05/29/17 09/30/19 Lisinopril 20 mg PO DAILY 09/30/19 09/30/19 metFORMIN HCL [Glucophage] 500 mg PO DAILY 09/30/19 09/30/19 Previous Rx's Medication Instructions Recorded Furosemide [Lasix] 20 mg PO DAILY #0 01/09/18 Allergies Allergy/AdvReac Type Severity Reaction Status Date / Time No Known Allergies Allergy Verified 09/30/19 11:17 Review of Systems ROS Statement: Those systems with pertinent positive or pertinent negative responses have been documented in the HPI. ROS Other: All systems not noted in ROS Statement are negative. Past Medical History Past Medical History: Diabetes Mellitus, Hyperlipidemia, Hypertension, Osteoarthritis (OA) Additional Past Medical History / Comment(s): Lumbar disc, lower back pain, sciatia. History of Any Multi-Drug Resistant Organisms: None Reported Past Surgical History: Orthopedic Surgery, Tonsillectomy Additional Past Surgical History / Comment(s): D&C, COLONOSCOPIES, BUNIONS, 10-4-16 LT TKA, R TKA Past Anesthesia/Blood Transfusion Reactions: No Reported Reaction Past Psychological History: No Psychological Hx Reported Smoking Status: Never smoker Past Alcohol Use History: None Reported Past Drug Use History: None Reported - Past Family History Father Family Medical History: Congestive Heart Failure (CHF) Mother Family Medical History: Cancer Additional Family Medical History / Comment(s): UNSURE WHAT KIND, HEART PROBLEMS General Exam - General Exam Comments Initial Comments: 68-year-old female. Alert and oriented 3. Limitations: no limitations General appearance: alert, in no apparent distress Head exam: Present: atraumatic, normocephalic, normal inspection Eye exam: Present: normal appearance, PERRL, EOMI. Absent: scleral icterus, conjunctival injection, periorbital swelling ENT exam: Present: normal exam Neck exam: Present: normal inspection. Absent: tenderness, meningismus, lymphadenopathy Respiratory exam: Present: normal lung sounds bilaterally. Absent: respiratory distress, wheezes, rales, rhonchi, stridor Cardiovascular Exam: Present: regular rate, normal rhythm, normal heart sounds. Absent: systolic murmur, diastolic murmur, rubs, gallop, clicks GI/Abdominal exam: Present: soft Extremities exam: Present: normal inspection, other (Patient has normal dorsalis pedis and posterior tibial pulse bilaterally.) Back exam: Present: normal inspection, paraspinal tenderness (R lumbar), other (Patient has tenderness of the right lumbar paraspinal muscles and over right sciatic notch.) Neurological exam: Present: alert, oriented X3, CN II-XII intact Psychiatric exam: Present: normal affect, normal mood Skin exam: Present: warm, dry, intact, normal color. Absent: rash Course Vital Signs 09/30/19 09/30/19 09/30/19 06:15 08:00 09:00 Temperature 98.1 F Pulse Rate 70 72 72 Respiratory 18 20 20 Rate Blood Pressure 149/74 119/71 129/75 O2 Sat by Pulse 96 95 95 Oximetry - Reevaluation(s) Reevaluation #1: 09/30/19 09:03 Patient was reevaluated, after receiving IM pain medicines and was resting in bed. I discussed attempting to ambulate. When Patient went to sit on it to the bed she started to yell and pain, with pain going down her left hip and buttocks. She attempted to stand, was unsteady on her feet, concern for fall. She reports her pain was still worsening with standing again. Patient was then brought back down to a reclining position. I discussed options due to patient's intractable back pain. An IV will be established and basic labs will be obtained. Medical Decision Making - Medical Decision Making 5-year-old female with acute exacerbation of chronic back pain. She reports that she had the lumbar spine injections by Dr. Tao last Monday. She's been having worsening pain since that time. She is seen in the emergency department last night for the same complaint. She returned this morning for pain control. With ambulation or slight movement Patient would scream in pain. Patient was given IM pain medication and initially was resting in bed. The Patient went to ambulate she started complaining of worsening pain and was concerned of falling and unsteady on her feet. This time we initially an IV and labs are obtained. Blood work was reviewed and unremarkable. Reviewed patient's CT imaging from last night which showed some chronic degenerative freddy nges but no acute fracture. She was given IV Solu-Medrol pain meds muscle relaxers. Patient continues to have significant pain with ambulation. A did discuss the Patient with several tellers at home she would have to possibly be admitted for observation and physical therapy consult. Patient is agreeable to this and her does not feel well to have her go home. Discussed the case with Dr. Gtz. - Lab Data Result diagrams: 09/30/19 09:35 09/30/19 09:15 Lab Results 09/30/19 09/30/19 09/30/19 Range/Units 09:15 09:35 10:42 WBC 5.2 (3.8-10.6) k/uL RBC 4.29 (3.80-5.40) m/uL Hgb 13.8 (11.4-16.0) gm/dL Hct 40.3 (34.0-46.0) % MCV 94.0 (80.0-100.0) fL MCH 32.1 (25.0-35.0) pg MCHC 34.1 (31.0-37.0) g/dL RDW 12.7 (11.5-15.5) % Plt Count 155 (150-450) k/uL Neutrophils % 75 % Lymphocytes % 14 % Monocytes % 8 % Eosinophils % 1 % Basophils % 1 % Neutrophils # 3.9 (1.3-7.7) k/uL Lymphocytes # 0.7 L (1.0-4.8) k/uL Monocytes # 0.4 (0-1.0) k/uL Eosinophils # 0.1 (0-0.7) k/uL Basophils # 0.1 (0-0.2) k/uL Sodium 139 (137-145) mmol/L Potassium 4.2 (3.5-5.1) mmol/L Chloride 106 (98-107) mmol/L Carbon Dioxide 28 (22-30) mmol/L Anion Gap 5 mmol/L BUN 27 H (7-17) mg/dL Creatinine 0.90 (0.52-1.04) mg/dL Est GFR (CKD-EPI)AfAm 75 (>60 ml/min/1.73 sqM) Est GFR (CKD-EPI)NonAf 65 (>60 ml/min/1.73 sqM) Glucose 125 H (74-99) mg/dL Calcium 9.9 (8.4-10.2) mg/dL Total Bilirubin 0.6 (0.2-1.3) mg/dL AST 20 (14-36) U/L ALT 16 (4-34) U/L Alkaline Phosphatase 59 (38-126) U/L Total Protein 6.1 L (6.3-8.2) g/dL Albumin 3.7 (3.5-5.0) g/dL Urine Color Yellow Urine Appearance Cloudy H (Clear) Urine pH 5.5 (5.0-8.0) Ur Specific [place] 1.039 H (1.001-1.035) Urine Protein 1+ H (Negative) Urine Glucose (UA) 3+ H (Negative) Urine Ketones Trace H (Negative) Urine Blood Negative (Negative) Urine Nitrite Negative (Negative) Urine Bilirubin Negative (Negative) Urine Urobilinogen 2.0 (<2.0) mg/dL Ur Leukocyte Esterase Trace H (Negative) Urine RBC 2 (0-5) /hpf Urine WBC 5 (0-5) /hpf Ur Squamous Epith Cells 12 H (0-4) /hpf Urine Bacteria Rare H (None) /hpf Hyaline Casts 6 H (0-2) /lpf Urine Mucus Few H (None) /hpf - Radiology Data Radiology results: report reviewed Patient CT shows moderate to severe degenerative disc disease of the lumbar spine with multilevel malalignment. Likely degenerative Patient and this Patient back pain. CT shows no hydronephrosis or nephrolithiasis. Evidence of hepatosplenomegaly. Numerous colonic diverticula without diverticulitis. Dystrophic calcified probable leiomyoma. Disposition Clinical Impression: Acute exacerbation of chronic low back pain, Sciatica, Intractable pain, Unable to ambulate Disposition: ADMITTED IP TO THIS HOSP Condition: Stable Is patient prescribed a controlled substance at d/c from ED?: No Referrals: Diana Newman MD [Primary Care Provider] - 1-2 days Time of Disposition: 12:15
[2019-09-30] MEDS ORDERED: SODIUM CHLORIDE 0.9% 1,000 ML IV STA ×2 (09:02)
[2019-09-30] MEDS ORDERED: KETOROLAC 30 MG/ML 1 ML VIAL IVP STA (09:31)
[2019-09-30] MEDS ORDERED: methylPREDNISolone SOD SUCCI 125 MG/2 ML VIAL IV STA (09:31)
[2019-09-30 09:41] LABS: Basophils # (A) 0.1 k/uL (0-0.2); Basophils % (A) 1 %; Eosinophils # (A) 0.1 k/uL (0-0.7); Eosinophils % (A) 1 %; HCT 40.3 % (34.0-46.0); HGB 13.8 gm/dL (11.4-16.0); Lymphocytes # (A) 0.7 k/uL (1.0-4.8); Lymphocytes % (A) 14 %; MCH 32.1 pg (25.0-35.0); MCHC 34.1 g/dL (31.0-37.0); Mean Platelet Volume 8.1; Monocytes # (A) 0.4 k/uL (0-1.0); Monocytes % (A) 8 %; Neutrophils # (A) 3.9 k/uL (1.3-7.7); Neutrophils % (A) 75 %; Platelet Count 155 k/uL (150-450); RBC 4.29 m/uL (3.80-5.40); RDW 12.7 % (11.5-15.5); WBC 5.2 k/uL (3.8-10.6)
[2019-09-30 09:41] LABS: Albumin 3.7 g/dL (3.5-5.0); Calcium 9.9 mg/dL (8.4-10.2); Potassium 4.2 mmol/L (3.5-5.1); Total Bilirubin 0.6 mg/dL (0.2-1.3); Total Protein 6.1 g/dL (6.3-8.2)
[2019-09-30 11:06] LABS: Appearance,Urine Cloudy (Clear); Bacteria,Urine Rare /hpf; Bilirubin,Urine Negative (Negative); Blood,Urine Negative (Negative); Color,Urine Yellow; Glucose,Urine (UA) 3+ (Negative); Hyaline Casts,Urine 6 /lpf (0-2); Ketones,Urine Trace (Negative); Leukocyte Esterase,Urine Trace (Negative); Mucus,Urine Few /hpf; Nitrite,Urine Negative (Negative); PH, Urine 5.5 (5.0-8.0); Protein,Urine 1+ (Negative); RBC,Urine 2 /hpf (0-5); Specific Gravity,Urine 1.039 (1.001-1.035); Squamous Epithelial Cell,Urine 12 /hpf (0-4); WBC,Urine 5 /hpf (0-5)
[2019-09-30] MEDS ORDERED: IBUPROFEN 400 MG TAB PO PRN (12:16)
[2019-09-30] MEDS ORDERED: HYDROmorphone 1 MG/ML 1 ML SYRINGE IVP PRN (12:16)
[2019-09-30] MEDS ORDERED: ONDANSETRON 4 MG/2 ML VIAL IVP PRN (12:16)
[2019-09-30] MEDS ORDERED: NALOXONE 0.4 MG/ML 1 ML VIAL IV PRN (12:16)
[2019-09-30] MEDS ORDERED: ACETAMINOPHEN TAB 325 MG TAB PO PRN (12:16)
[2019-09-30] MEDS ORDERED: KETOROLAC 30 MG/ML 1 ML VIAL IVP PRN (12:16)
[2019-09-30] MEDS: SODIUM CHLORIDE 0.9% 1,000 ML IV SCH (13:57)
[2019-09-30 17:23] LABS: Glucose,Whole Blood 293 mg/dL (75-99)
[2019-09-30] MEDS: INSULIN ASPART (NovoLOG) 100 UNIT/ML VIAL SQ SCH (17:55)
[2019-09-30] MEDS: PRAVASTATIN SODIUM 80 MG TAB PO SCH (19:57)
[2019-09-30] MEDS: ASPIRIN 81 MG PO SCH (19:57)
[2019-09-30] MEDS: CALCIUM CARBONATE 500 MG CHEWABLE PO SCH (19:57)
[2019-09-30 20:26] LABS: Glucose,Whole Blood 277 mg/dL (75-99)
[2019-10-01 07:18] LABS: Glucose,Whole Blood 160 mg/dL (75-99)
--- NOTE | 2019-10-01 07:22 | P.HPIM ---
History of Present Illness H&P Date: 09/30/19 The patient is 68-year-old female with a PMH of type 2 diabetes mellitus, hypertension, hyperlipidemia, and chronic lower back pain who presented to the ED with complaints of sudden worsening of her lower back pain one day ago. Patient reported that she has been struggling with this bilateral lower back pain and issues with her sciatic nerve for several years now, and follows with the pain management doctor and has received multiple injections. She reports that this time, her pain is intractable, for which she had presented to the emergency room the day prior, and was sent home with Tylenol and codeine, which did not relieve her pain. The patient reports 10 out of 10 right lower back pain upon movement with some radiation to the right leg. She denied weakness of the leg, numbness, or tingling. She also denied any urinary complaints. She underwent an extensive evaluation in the emergency room with an abdomen/pelvis CT on the prior visits to the emergency room which revealed moderate to severe DJD of the lumbar spine with multilevel malalignment, hepatosplenomegaly, scattered colonic diverticula with no diverticulitis. The patient was started on pain medication and was admitted for further management. Review of Systems Pertinent positives and negatives as discussed in HPI, a complete review of systems was performed and all other systems are negative. Past Medical History Past Medical History: Diabetes Mellitus, Hyperlipidemia, Hypertension, Osteoarthritis (OA) Additional Past Medical History / Comment(s): Lumbar disc disease, chronic lower back pain, R sided sciatia, NIDDM type II, arthritis in multiple joints, benign colon polyps, diverticular disease, osteoporosis, bilateral leg/pedal edema, varicose veins bilateral legs, starting of cataracts bilateral eyes. History of Any Multi-Drug Resistant Organisms: None Reported Past Surgical History: Joint Replacement, Orthopedic Surgery, Tonsillectomy Additional Past Surgical History / Comment(s): Low back injections, bilateral total knee arthroplasties, bilateral feet bunionectomies, several D&Cs, colonoscopies/benign polypectomies. Past Anesthesia/Blood Transfusion Reactions: No Reported Reaction Smoking Status: Never smoker - Past Family History Father Family Medical History: Congestive Heart Failure (CHF) Mother Family Medical History: Cancer Additional Family Medical History / Comment(s): UNSURE WHAT KIND OF CANCER, HEART PROBLEMS Medications and Allergies Home Medications Medication Instructions Recorded Confirmed Type Pravastatin Sodium [Pravachol] 80 mg PO HS 05/28/14 02/10/20 History Ibandronate Sodium [Boniva] 150 mg PO Q30D 12/11/15 09/30/19 History Aspirin [Adult Low Dose Aspirin EC] 81 mg PO HS 02/05/17 09/30/19 History Calcium Carbonate [Calcium] 600 mg PO BID 05/29/17 09/30/19 History Furosemide [Lasix] 20 mg PO DAILY #0 01/09/18 09/30/19 Rx Lisinopril 20 mg PO DAILY 09/30/19 09/30/19 History metFORMIN HCL [Glucophage] 500 mg PO DAILY 09/30/19 09/30/19 History Allergies Allergy/AdvReac Type Severity Reaction Status Date / Time No Known Allergies Allergy Verified 09/30/19 11:17 Physical Exam Vitals: Vital Signs Temp Pulse Resp BP Pulse Ox 09/30/19 13:33 18 09/30/19 13:30 126/67 95 09/30/19 13:00 128/65 98 09/30/19 12:30 130/63 98 09/30/19 12:00 129/68 96 09/30/19 11:30 132/71 97 09/30/19 11:00 122/60 97 09/30/19 10:30 146/80 09/30/19 10:00 132/75 97 09/30/19 09:30 139/71 98 09/30/19 09:00 72 20 119/71 98 09/30/19 08:30 129/81 97 09/30/19 08:08 96 09/30/19 08:00 72 20 119/71 95 09/30/19 06:15 98.1 F 70 18 149/74 96 Intake and Output 09/29/19 09/30/19 09/30/19 22:59 06:59 14:59 Other: Weight 123.377 kg 123.377 kg General: non toxic, no distress, appears at stated age, morbidly obese Derm: no unusual rashes/lesions no unusual ecchymoses, warm, dry Head: atraumatic, normocephalic, symmetric Eyes: EOMI, no lid lag, anicteric sclera, pupils equal round reactive to light ENT: Nose and ears atraumatic, no thrush, no pharyngeal erythema Neck: No thyromegaly, no cervical lymphadenopathy, trachea midline, supple Mouth: no lip lesion, mucus membranes moist Cardiovascular: S1S2 reg, no murmur, positive posterior tibial pulse bilateral, no edema, capillary refill less than 2 seconds Lungs: CTA bilateral, no rhonchi, no rales , no accessory muscle use Abdominal: soft, nontender to palpation, no guarding, no appreciable orga nomegaly, normal bowel sounds Ext: no gross muscle atrophy, muscle strength 5 out of 5 in all 4 extremities, no contractures, patient notes pain with movement, R paraspinal lumbar tenderness, R SLR positive at 35-40 degrees Neuro: CN II-XI grossly intact, light touch intact all 4 extremities, finger to nose within normal limits, babinski downwards poppy Psych: Alert, oriented, appropriate affect Results CBC & Chem 7: 09/30/19 09:35 09/30/19 09:15 Labs: Abnormal Lab Results - Last 24 Hours (Table) 09/30/19 09/30/19 09/30/19 Range/Units 09:15 09:35 10:42 Lymphocytes # 0.7 L (1.0-4.8) k/uL BUN 27 H (7-17) mg/dL Glucose 125 H (74-99) mg/dL Total Protein 6.1 L (6.3-8.2) g/dL Urine Appearance Cloudy H (Clear) Ur Specific [place] 1.039 H (1.001-1.035) Urine Protein 1+ H (Negative) Urine Glucose (UA) 3+ H (Negative) Urine Ketones Trace H (Negative) Ur Leukocyte Esterase Trace H (Negative) Ur Squamous Epith Cells 12 H (0-4) /hpf Urine Bacteria Rare H (None) /hpf Hyaline Casts 6 H (0-2) /lpf Urine Mucus Few H (None) /hpf Thrombosis Risk Factor Assmnt - Choose All That Apply Any of the Below Risk Factors Present?: Yes Each Factor Represents 1 point: Obesity (BMI >25), Varicose veins Other Risk Factors: Yes Each Risk Factor Represents 2 Points: Age 61-74 years, Patient confined to bed Other congenital or acquired thrombophilia - If yes, enter type in comment: No Thrombosis Risk Factor Assessment Total Risk Factor Score: 6 Thrombosis Risk Factor Assessment Level: High Risk Assessment and Plan Plan: Intractable lower back pain -Likely due to DJD vs sciatica -Neurochecks -Will consult Neurology -Obtain lumbar spinal MRI -Pain control with Dilaudid and Toradol Type 2 DM -NICOLETTE with FS Chronic conditions: HTN, HLD -C/w home meds DVT prophylaxis -Heparin Discussed with: Patient, Anticipated discharge date: 1-[address]: Home A total of 35 minutes was spent on the care of this complex patient more than 50 % of the time was spent in counseling and care coordination.
[2019-10-01] MEDS: INSULIN ASPART (NovoLOG) 100 UNIT/ML VIAL SQ SCH ×3 (07:32→17:14)
[2019-10-01] MEDS: LISINOPRIL 20 MG TAB PO SCH (07:32)
[2019-10-01] MEDS: FUROSEMIDE 20 MG TAB PO SCH (07:32)
[2019-10-01] MEDS: CALCIUM CARBONATE 500 MG CHEWABLE PO SCH ×2 (07:33→20:49)
[2019-10-01] MEDS ORDERED: PANTOPRAZOLE 40 MG/10 ML VIAL IV SCH (09:00)
[2019-10-01 11:37] LABS: Glucose,Whole Blood 122 mg/dL (75-99)
[2019-10-01] MEDS: SODIUM CHLORIDE 0.9% 1,000 ML IV SCH (12:26)
--- NOTE | 2019-10-01 16:36 | P.PN ---
Subjective Progress Note Date: 10/01/19 Vision was seen and examined at bedside. She reports significant improvement in her lower back pain, currently at a 0 out of 10. She denied any additional complaints. Notes that she has been ambulating to the bathroom without much discomfort, though still requiring IV pain medications . Denied weakness, numbness, tingling, urinary complaints, or fecal incontinence. Objective - Vital Signs Vital signs: Vital Signs Temp 97.9 F 10/01/19 14:40 Pulse 59 L 10/01/19 14:45 Resp 16 10/01/19 14:45 BP 117/61 10/01/19 14:40 Pulse Ox 96 10/01/19 14:40 Intake & Output 09/30/19 10/01/19 10/01/19 18:59 06:59 18:59 Intake Total 960 1320 1600 Balance 960 1320 1600 Weight 123.377 kg Intake: Intake, IV Titration 600 360 160 Amount Sodium Chloride 0.9% 1, 600 000 ml @ 100 mls/hr IV . Q10H [facility] Rx#:[id number] Sodium Chloride 0.9% 1, 360 160 000 ml @ 20 mls/hr IV . Q24H [facility] Rx#:[id number] Oral [id number] Other: Voiding Method Toilet Toilet Toilet Bedside Commode Bedside Commode Bedside Commode # Voids 1 1 1 - Exam General: Non-toxic, in no acute distress, appears stated age, morbidly obese HEENT: NC/AT, anicteric sclerae, moist conjunctiva, no lid-lag, PERRLA Cardiovascular: S1/S2 wnl, no murmurs, rubs, or gallops Lungs: Clear to auscultation, normal respiratory effort, no accessory muscle use Abdominal: Soft, non-tender, non-distended, no guarding, rebound, or rigidity Skin: Warm, dry Extremities: No edema or contractures Psychiatric: Alert and oriented to person, place and time, appropriate affect Neuro: CN II-XII grossly intact, Strength 5/5 in all 4 extremities, Speech intact, Sensation to light touch grossly intact throughout, SLR negative poppy, minimal lumbar paraspinal tenderness - Labs CBC & Chem 7: 09/30/19 09:35 09/30/19 09:15 Labs: Abnormal Lab Results - Last 24 Hours (Table) 09/30/19 09/30/19 10/01/19 Range/Units 17:22 20:25 07:17 POC Glucose (mg/dL) 293 H 277 H 160 H (75-99) mg/dL 10/01/19 Range/Units 11:36 POC Glucose (mg/dL) 122 H (75-99) mg/dL Assessment and Plan Plan: Intractable lower back pain, significantly improved -Likely due to DJD vs sciatica -Neurochecks -Neurology recs pending -Hold off on MRI -Pain control with Dilaudid and Toradol Type 2 DM -NICOLETTE with FS Chronic conditions: HTN, HLD -C/w home meds DVT prophylaxis -Heparin
[2019-10-01 16:53] LABS: Glucose,Whole Blood 146 mg/dL (75-99)
--- NOTE | 2019-10-01 17:20 | P.CNNES ---
History of Present Illness Consult date: 10/01/19 Requesting physician: Erika Ayon Reason for Consult: Lower back pain History of Present Illness: Patient is a 68-year-old female who has history of low back pain for about 10 years. She gets injections periodically. She received one injection on 09/03/2019. She did not get benefit therefore she received another injection last 09/24/2019. Patient continues to have right sciatic pain, that starts in the right sacroiliac region, extends to the side of the leg all the way to the top of the foot and the right ankle. She denies any constant area of numbness. No weakness of the legs. Denies any symptoms in the left leg. Denies any constant numbness or tingling or neuropathy in her feet. Patient does have diabetes for the last 6-7 years, which is controlled. Patient never smoker. Patient states that she has MRI of the lumbar spine performed couple years ago, which was performed in another facility, as patient can only get open MRI. Patient states she has previously tried physical therapy, but was quite a while ago. She has tried ibuprofen which she takes occasionally, extra strength Tylenol. She is currently not on any anti-inflammatory regimen or neuromodulators. Patient's last hemoglobin A1c is 6.1 on 11/15/2018. Her most recent blood test shows BUN 27, creatinine 0.90 on 09/30/2019. Liver functions are normal. Total cholesterol 142, LDL 68, HDL 57 and triglycerides 85. Patient's CT of the abdomen and pelvis from 09/29/2019 showed moderate to severe degenerative disc disease of the lumbar spine with what level malalignment, likely on degenerative basis in this patient with the back pain. No hydronephrosis or nephrolithiasis. Hepatosplenomegaly. Review of Systems As above in detail. Patient does have arthritis, history of bilateral knee r eplacement. Denies any chest pain shortness of breath wheezing cough, nausea vomiting diarrhea abdominal pain. Denies headache diplopia slurred speech facial droop. Past Medical History Past Medical History: Diabetes Mellitus, Hyperlipidemia, Hypertension, O steoarthritis (OA) Additional Past Medical History / Comment(s): Lumbar disc disease, chronic lower back pain, R sided sciatia, NIDDM type II, arthritis in multiple joints, benign colon polyps, diverticular disease, osteoporosis, bilateral leg/pedal edema, varicose veins bilateral legs, starting of cataracts bilateral eyes. History of Any Multi-Drug Resistant Organisms: None Reported Past Surgical History: Joint Replacement, Orthopedic Surgery, Tonsillectomy Additional Past Surgical History / Comment(s): Low back injections, bilateral total knee arthroplasties, bilateral feet bunionectomies, several D&Cs, colonoscopies/benign polypectomies. Past Anesthesia/Blood Transfusion Reactions: No Reported Reaction Smoking Status: Never smoker - Past Family History Father Family Medical History: Congestive Heart Failure (CHF) Mother Family Medical History: Cancer Additional Family Medical History / Comment(s): UNSURE WHAT KIND OF CANCER, HEART PROBLEMS Medications and Allergies Home Medications Medication Instructions Recorded Confirmed Type Pravastatin Sodium [Pravachol] 80 mg PO HS 01/15/14 09/30/19 History Ibandronate Sodium [Boniva] 150 mg PO Q30D 12/11/15 09/30/19 History Aspirin [Adult Low Dose Aspirin EC] 81 mg PO HS 02/05/17 09/30/19 History Calcium Carbonate [Calcium] 600 mg PO BID 05/29/17 09/30/19 History Furosemide [Lasix] 20 mg PO DAILY #0 01/09/18 09/30/19 Rx Lisinopril 20 mg PO DAILY 09/30/19 09/30/19 History metFORMIN HCL [Glucophage] 500 mg PO DAILY 09/30/19 09/30/19 History Allergies Allergy/AdvReac Type Severity Reaction Status Date / Time No Known Allergies Allergy Verified 09/30/19 11:17 Physical Examination - Vital Signs Vital Signs: Vital Signs Temp Pulse Pulse Resp BP Pulse Ox 10/01/19 14:45 59 L 16 10/01/19 14:40 97.9 F 59 L 16 117/61 96 10/01/19 12:14 97.8 F 60 16 134/63 99 10/01/19 08:00 52 L 17 10/01/19 07:39 52 L 148/72 10/01/19 05:00 98.2 F 50 L 17 96/53 98 10/01/19 00:22 16 09/30/19 21:01 98.4 F 60 16 116/69 94 L Intake and Output 10/01/19 10/01/19 10/01/19 06:59 14:59 22:59 Intake Total 400 1600 Balance 400 1600 Intake: Intake, IV Titration 160 160 Amount Sodium Chloride 0.9% 1, 160 160 000 ml @ 20 mls/hr IV . Q24H [facility] Rx#:[id number] Oral 240 1440 Other: Voiding Method Toilet Toilet Bedside Commode Bedside Commode # Voids 1 3 1 On examination patient is an elderly female, in no distress. Patient is alert awake oriented to time place and person. Speech and language functions are normal. Attention and concentration fund of knowledge is adequate. On cranial nerve exam her pupils are round and reactive to light, visual oquendo are full on confrontation, extraocular muscles are intact with no nystagmus. Face is symmetric and tongue protrudes the midline. Palatal elevation and sensation normal. On muscle strength testing there is no pronator drift and the strength is normal in arms and legs distally and proximally including detailed testing of the lower limbs. Reflexes are 1+ in the upper limbs, 2 at the knees and ankles and plantars downgoing sensory touch is equal. No ataxia for [id number] testing. Tone and bulk of muscles normal. Gait deferred. There is no obvious bruit S1-S2 audible abdomin soft nontender. Results - Laboratory Findings CBC and BMP: 09/30/19 09:35 09/30/19 09:15 Abnormal Lab Findings: Abnormal Labs 09/30/19 09/30/19 09/30/19 09:15 09:35 10:42 Lymphocytes # 0.7 L BUN 27 H Glucose 125 H POC Glucose (mg/dL) Total Protein 6.1 L Urine Appearance Cloudy H Ur Specific [place] 1.039 H Urine Protein 1+ H Urine Glucose (UA) 3+ H Urine Ketones Trace H Ur Leukocyte Esterase Trace H Ur Squamous Epith Cells 12 H Urine Bacteria Rare H Hyaline Casts 6 H Urine Mucus Few H 09/30/19 09/30/19 10/01/19 17:22 20:25 07:17 Lymphocytes # BUN Glucose POC Glucose (mg/dL) 293 H 277 H 160 H Total Protein Urine Appearance Ur Specific [place] Urine Protein Urine Glucose (UA) Urine Ketones Ur Leukocyte Esterase Ur Squamous Epith Cells Urine Bacteria Hyaline Casts Urine Mucus 10/01/19 10/01/19 11:36 16:52 Lymphocytes # BUN Glucose POC Glucose (mg/dL) 122 H 146 H Total Protein Urine Appearance Ur Specific [place] Urine Protein Urine Glucose (UA) Urine Ketones Ur Leukocyte Esterase Ur Squamous Epith Cells Urine Bacteria Hyaline Casts Urine Mucus Assessment and Plan Assessment: * 68-year-old female with history of chronic low back pain, with possible right lumbar radiculopathy, admitted with worsening of symptoms of lumbar radiculopathy involving the right lower extremity. Patient does not have any symptoms of peripheral neuropathy. Patient possibly has spinal stenosis. No MRI of lumbar spine is available for review. * Diabetes, well controlled * Exogenous obesity. Plan: * Patient has chronic low back pain with symptoms of lumbar radiculopathy. Patient currently is not on any anti-inflammatory medication. Patient will be started on Celebrex 100 mg twice a day. * We will also start patient on Neurontin 300 mg twice a day. If needed, the dose can be increased to 300 mg 3 times a day after 1 week. Possible side effects were discussed including drowsiness. * Suggest PT for low back pain. * Consider EMG and nerve conductions of right lower extremity as an outpatient, to rule out any electrodiagnostic evidence of lumbar radiculopathy. Her current neurological examination at this time is normal.
[2019-10-01] MEDS: MELOXICAM 7.5 MG TAB PO SCH (17:43)
[2019-10-01 20:17] LABS: Glucose,Whole Blood 151 mg/dL (75-99)
[2019-10-01] MEDS: ASPIRIN 81 MG PO SCH (20:49)
[2019-10-01] MEDS: PRAVASTATIN SODIUM 80 MG TAB PO SCH (20:50)
[2019-10-01] MEDS: GABAPENTIN 100 MG CAP PO SCH (20:50)
[2019-10-02 05:18] VITALS: PULSE 59
[2019-10-02 07:03] LABS: Glucose,Whole Blood 107 mg/dL (75-99)
[2019-10-02] MEDS ORDERED: PANTOPRAZOLE 40 MG TABLET PO SCH (07:30)
[2019-10-02] MEDS: INSULIN ASPART (NovoLOG) 100 UNIT/ML VIAL SQ SCH ×2 (07:57→11:52)
[2019-10-02] MEDS: CALCIUM CARBONATE 500 MG CHEWABLE PO SCH (07:58)
[2019-10-02] MEDS: MELOXICAM 7.5 MG TAB PO SCH (07:58)
[2019-10-02] MEDS: GABAPENTIN 100 MG CAP PO SCH (07:58)
[2019-10-02] MEDS: FUROSEMIDE 20 MG TAB PO SCH (07:59)
[2019-10-02] MEDS: LISINOPRIL 20 MG TAB PO SCH (07:59)
[2019-10-02 11:50] LABS: Glucose,Whole Blood 137 mg/dL (75-99)
--- NOTE | 2019-10-02 12:03 | P.DS ---
Providers Date of admission: 09/30/19 12:14 Expected date of discharge: 10/02/19 Attending physician: Sherrell Maurer DO Consults: 10/01/19 07:19 Consult Physician Urgent Consulting Provider: Jami Soriano Consult Reason/Comments: Lower back pain Do you want consulting provider notified?: Yes Primary care physician: [place] Course: The patient is 68-year-old female with a PMH of type 2 diabetes mellitus, hypertension, hyperlipidemia, and chronic lower back pain who presented to the ED with complaints of sudden worsening of her lower back pain one day ago. Mendoza louis reported that she has been struggling with this bilateral lower back pain and issues with her sciatic nerve for several years now, and follows with the pain management doctor and has received multiple injections. She reported at time of presentation that her pain was intractable, for which she had presented to the emergency room the day prior, and was sent home with Tylenol and codeine, which did not relieve her pain. The patient reported 10 out of 10 right lower back pain upon movement with some radiation to the right leg. She denied weakness of the leg, numbness, or tingling. She also denied any urinary complaints. She underwent an extensive evaluation in the emergency room with an abdomen/pelvis CT on the prior visits to the emergency room which revealed moderate to severe DJD of the lumbar spine with multilevel malalignment, hepatosplenomegaly, scattered colonic diverticula with no diverticulitis. The patient was started on pain medication and was admitted for further management. The patient was evaluated by neurology who recommended gabapentin and Mobic. The patient had good control of her pain. She was seen and evaluated at the bedside on the day of discharge and reported a 1 out of 10 right hip pain with radiation to the leg. She denied weakness, numbness, tingling, urinary complaints, or fecal continence. The patient was advised on the importance of taking her Protonix every day to minimize GI side effects of the Mobic and aspirin. She was also advised to follow-up with her primary care doctor along with her pain management physician upon discharge. She was also provided with an appointment with a Neurologist for EMG and Nerve conduction studies following discharge. Patient was agreeable and eager to be discharged. Physical Examination General: Non-toxic, in no acute distress, appears stated age, morbidly obese HEENT: NC/AT, anicteric sclerae, moist conjunctiva, no lid-lag, PERRLA Cardiovascular: S1/S2 wnl, no murmurs, rubs, or gallops Lungs: Clear to auscultation, normal respiratory effort, no accessory muscle use Abdominal: Soft, non-tender, non-distended, no guarding, rebound, or rigidity Skin: Warm, dry Extremities: No edema or contractures Psychiatric: Alert and oriented to person, place and time, appropriate affect Neuro: CN II-XII grossly intact, Strength 5/5 in all 4 extremities, Speech intact, Sensation to light touch grossly intact throughout, SLR negative poppy, minimal lumbar paraspinal tenderness Discharge diagnosis: Lower back pain, likely lumbar radiculopathy, improved; Type 2 DM; HTN; HLD A total of 40 minutes of time were spent preparing this complex discharge summary. Patient Condition at Discharge: Stable Plan - Discharge Summary Discharge Rx Participant: No New Discharge Prescriptions: New Meloxicam [Mobic] 15 mg PO DAILY #14 tab Gabapentin [Neurontin] 200 mg PO BID #60 cap Pantoprazole [Protonix] 40 mg PO AC-BRKFST #30 tablet.dr Continue Pravastatin Sodium [Pravachol] 80 mg PO HS Ibandronate Sodium [Boniva] 150 mg PO Q30D Aspirin [Adult Low Dose Aspirin EC] 81 mg PO HS Calcium Carbonate [Calcium] 600 mg PO BID Furosemide [Lasix] 20 mg PO DAILY #0 Lisinopril 20 mg PO DAILY metFORMIN HCL [Glucophage] 500 mg PO DAILY Discharge Medication List Pravastatin Sodium [Pravachol] 80 mg PO HS 01/15/14 [History] Ibandronate Sodium [Boniva] 150 mg PO Q30D 12/11/15 [History] Aspirin [Adult Low Dose Aspirin EC] 81 mg PO HS 02/05/17 [History] Calcium Carbonate [Calcium] 600 mg PO BID 05/29/17 [History] Furosemide [Lasix] 20 mg PO DAILY #0 01/09/18 [Rx] Lisinopril 20 mg PO DAILY 09/30/19 [History] metFORMIN HCL [Glucophage] 500 mg PO DAILY 09/30/19 [History] Gabapentin [Neurontin] 200 mg PO BID #60 cap 10/02/19 [Rx] Meloxicam [Mobic] 15 mg PO DAILY #14 tab 10/02/19 [Rx] Pantoprazole [Protonix] 40 mg PO MRAY-BRKFST #30 tablet. 10/02/19 [Rx] Follow up Appointment(s)/Referral(s): Diana Newman MD [Primary Care Provider] - 1-2 days Prasanna Tao MD [STAFF PHYSICIAN] - 1 Week Patient Instructions/Handouts: Sciatica (DC) Activity/Diet/Wound Care/Special Instructions: activity limited until seen by DrGenna Discharge Disposition: HOME SELF-CARE
[2019-10-02 12:14] VITALS: BP 132/63; RESP 17; TEMP 98
[2019-10-02] MEDS: SODIUM CHLORIDE 0.9% 1,000 ML IV SCH (14:34)
== END 2019-10-02 15:10 | disposition home or self-care (01) ==
LOC: EC 06:12 → 5NMEDONC 12:14
PROVIDERS: ADMIT Internal Medicine; ATTEND Internal Medicine
DX: M54.40 Lumbago with sciatica, unspecified side (principal); G89.29 Other chronic pain; E11.9 Type 2 diabetes mellitus without complications; E78.5 Hyperlipidemia, unspecified; I10 Essential (primary) hypertension; M19.90 Unspecified osteoarthritis, unspecified site; E66.9 Obesity, unspecified; M81.0 Age-related osteoporosis without current pathological fracture; I83.93 Asymptomatic varicose veins of bilateral lower extremities; Z96.653 Presence of artificial knee joint, bilateral; Z82.49 Family history of ischemic heart disease and other diseases of the circulatory system; Z80.9 Family history of malignant neoplasm, unspecified; Z79.82 Long term (current) use of aspirin; Z79.84 Long term (current) use of oral hypoglycemic drugs; Z79.899 Other long term (current) drug therapy
CPT/HCPCS: 96376; 96361 ×2; 96375 ×2; 96372; 96374; 99284; 36415; 80053; 85025; 81001; G0378 ×3; J2360; J2930; J1885 ×2; J1170; C9113

== ENCOUNTER → 2019-10-05 | Outpatient (CLI) | payer MEDICARE ==
[2019-10-05 09:12] LABS: Basophils % (A) 1 %; Eosinophils # (A) 0.1 k/uL (0-0.7); Eosinophils % (A) 4 %; HCT 41.4 % (34.0-46.0); HGB 13.8 gm/dL (11.4-16.0); Lymphocytes # (A) 0.7 k/uL (1.0-4.8); Lymphocytes % (A) 18 %; MCH 31.5 pg (25.0-35.0); MCHC 33.3 g/dL (31.0-37.0); MCV 94.6 fL (80.0-100.0); Mean Platelet Volume 8.2; Monocytes # (A) 0.3 k/uL (0-1.0); Monocytes % (A) 6 %; Neutrophils # (A) 2.9 k/uL (1.3-7.7); Neutrophils % (A) 71 %; Platelet Count 155 k/uL (150-450); RBC 4.38 m/uL (3.80-5.40)
[2019-10-05 09:20] LABS: Albumin 3.4 g/dL (3.5-5.0); Calcium 9.1 mg/dL (8.4-10.2); Magnesium 1.8 mg/dL (1.6-2.3); Potassium 4.4 mmol/L (3.5-5.1); Total Bilirubin 0.6 mg/dL (0.2-1.3); Total Protein 5.7 g/dL (6.3-8.2); Uric Acid 6.1 mg/dL (3.7-7.4)
[2019-10-05 09:23] LABS: D-Dimer 1.63 mg/L FEU (<0.60)
[2019-10-05 09:46] LABS: Creatine Kinase MB 0.8 ng/mL (0.0-2.4); Troponin I <0.012 ng/mL (0.000-0.034)
[2019-10-05 18:07] LABS: Alpha Fetoprotein, Tumor Mkr <2.5 ng/mL (0.0-7.9)
[2019-10-05 18:49] LABS: Hemoglobin A1C 6.1 % (4.0-6.0)
[2019-10-05 18:59] LABS: Hepatitis A Antibody IgM Non-Reactive (Non-Reactive); Hepatitis B Core IgM Non-Reactive (Non-Reactive); Hepatitis B Surface Antigen Non-Reactive (Non-Reactive); Hepatitis C IgG Antibody Non-Reactive (Non-Reactive)
[2019-10-05 23:08] LABS: Folate, Serum 7.5 ng/mL
[2019-10-05 23:34] LABS: Ferritin 392.3 ng/mL (10.0-291.0)
--- NOTE | 2019-10-07 13:16 | CT ---
EXAMINATION TYPE: CT chest wo con DATE OF EXAM: 10/05/2019 COMPARISON: None HISTORY: Shortness of breath CT DLP: [address] of the chest was performed with lung and mediastinal window settings submitted. The la ck of contrast limits evaluation of the vascular, mediastinal and parenchymal structures including th e upper abdomen. LUNGS: The lungs are clear and free of infiltrate. No atelectasis. No pulmonary nodule or mass is de tected. No pleural effusion. No CT evidence of interstitial lung disease. MEDIASTINUM/JERE: Thoracic aorta is of normal caliber with limited evaluation given lack of contrast . The heart is not enlarged. No evidence for mediastinal mass. No lymph nodes greater than 1cm. UPPER ABDOMEN: No significant abnormality is seen. OTHER: No significant other abnormality. IMPRESSION: 1. No significant abnormality to account for the patient's symptoms.
== END | disposition home or self-care (01) ==
LOC: RADCTMAIN 07:51
PROVIDERS: ATTEND Family Medicine
DX: R06.02 Shortness of breath (principal); E11.9 Type 2 diabetes mellitus without complications; I10 Essential (primary) hypertension; E78.5 Hyperlipidemia, unspecified; E66.9 Obesity, unspecified; R53.83 Other fatigue; R16.0 Hepatomegaly, not elsewhere classified; R60.9 Edema, unspecified; T14.8XXA Other injury of unspecified body region, initial encounter
CPT/HCPCS: 36415; 71250; 80053; 80061; 80074; 82105; 82150; 82306; 82553; 82607; 82728; 82746; 82977; 83036; 83615; 83690; 83735; 83880; 84443; 84484; 84550; 85025; 85379; 85610; 86038

== ENCOUNTER → 2019-10-07 | Outpatient (CLI) | payer MEDICARE ==
--- NOTE | 2019-10-07 12:07 | US ---
EXAMINATION TYPE: US venous doppler duplex LE RT DATE OF EXAM: 10/07/2019 11:55 AM COMPARISON: NONE CLINICAL HISTORY: 68-year-old female R79.1 Abnormal coagulation profile. SIDE PERFORMED: right TECHNIQUE: The lower extremity deep venous system is examined utilizing real time linear array sonog brenda with graded compression, doppler sonography and color-flow sonography. FINDINGS: VESSELS IMAGED: External Iliac Vein (EIV) Common Femoral Vein Deep Femoral Vein Greater Saphenous Vein * Femoral Vein Popliteal Vein Small Saphenous Vein * Proximal Calf Veins, not seen (* superficial vessels) Hydrogen Treater notes: Patient morbidly obese, technically difficult. Right Leg: Negative for DVT IMPRESSION: Technically difficult exam. Unable to adequately visualize the upper calf veins. Otherwise, no eviden ce for DVT within the right lower extremity imaged from the groin to the level of the knee.
--- NOTE | 2019-10-07 13:08 | CT ---
EXAMINATION TYPE: CT angio chest DATE OF EXAM: 10/07/2019 COMPARISON: 10/05/2019 HISTORY: Shortness of breath and leg pain. CT DLP: 846.1 mGycm CONTRAST: CT chest with contrast and 3D reconstruction with MIP imaging is performed with IV Contrast, patient injected with 100 mL of Isovue 370. Contrast-enhanced CT of the chest was performed through the course of the pulmonary arteries with estephanie g and mediastinal window settings submitted. 3D reconstruction with MIP imaging was also performed. PULMONARY ARTERIES: The pulmonary arteries and their major tributaries are patent. I do not see estefany dence for sizable filling defect to suggest pulmonary embolic process. LUNGS: The lungs are clear and free of infiltrate. No evidence for atelectasis. No pulmonary nodule or mass is detected. No pleural effusion. MEDIASTINUM: Thoracic aorta is of normal caliber,however, evaluation is limited given timing of the contrast bolus. If there is concern for thoracic aortic pathology consider MORGAN. Correlate clinicall y . The heart is not enlarged. No evidence for mediastinal mass. No mediastinal lymph nodes greater than 1cm. HILAR STRUCTURES: No evidence for mass. No hilar lymph nodes greater than 1 cm. UPPER ABDOMEN: No significant abnormality is seen. IMPRESSION: 1. No evidence for Pulmonary embolism at this time.
== END | disposition home or self-care (01) ==
LOC: RADCTMAIN 11:20
PROVIDERS: ATTEND Family Medicine
DX: M79.661 Pain in right lower leg (principal); R06.02 Shortness of breath; R79.1 Abnormal coagulation profile
CPT/HCPCS: 93971; 71275; Q9967

== ENCOUNTER → 2019-10-29 | Outpatient (CLI) | payer MEDICARE | END | disposition home or self-care (01) | LOC: CPPFTMAIN 12:37 | PROVIDERS: ATTEND Family Medicine | DX: R06.02 Shortness of breath (principal) | CPT/HCPCS: 94060; 94726; 94729 ==

== ENCOUNTER → 2020-03-24 | Outpatient (CLI) | payer MEDICARE ==
--- NOTE | 2020-03-30 10:23 | MM ---
Reason for exam: screening (asymptomatic). Last mammogram was performed 1 year and 3 months ago. History: Patient is postmenopausal. Benign stereotactic core biopsy of the left breast, June 25, 2004. Core biopsy of the left breast. Took estrogen for 3 years. Physical Findings: A clinical breast exam by your physician is recommended on an annual basis and results should be correlated with mammographic findings. MG 3D Screening Mammo W/Cad Bilateral CC and MLO view(s) were taken. Prior study comparison: December 26, 2018, bilateral MG 3d screening mammo w/cad. December 12, 2017, bilateral MG 3d screening mammo w/cad. There are scattered fibroglandular densities. No significant changes when compared with prior studies. ASSESSMENT: Benign, BI-RAD 2 RECOMMENDATION: Routine screening mammogram of both breasts in 1 year.
== END | disposition home or self-care (01) ==
LOC: RADMAMWWP 07:17
PROVIDERS: ATTEND Family Medicine
DX: Z12.31 Encounter for screening mammogram for malignant neoplasm of breast (principal)
CPT/HCPCS: 77063; 77067

== ENCOUNTER 2020-08-28 16:43 | Inpatient (IN) | payer MEDICARE ==
--- NOTE | 2020-08-28 16:58 | ED ---
General Adult HPI - General Chief complaint: Shortness of Breath Stated complaint: Covid + Time Seen by Provider: 08/28/20 16:56 Source: patient, EMS Mode of arrival: EMS Limitations: no limitations - History of Present Illness Initial comments: Presents to the ED by ambulance from [facility] for evaluation. Patient states that she has had symptoms of cough, congestion, dyspnea, occasional diarrhea and nausea for the past week or so. Patient went to [facility] today for Covid testing, and she states that she tested positive. Patient was reportedly transferred to the ED from [facility] by ambulance secondary to respiratory distress and low oxygen saturation. Patient states that her is currently in the ICU with Covid. Patient denies having any pain, fever or chills, headache, focal neuro deficit, sore throat, chest pain, hemoptysis, palpitations, dizziness, abdominal pain, vomiting, bloody or melanotic stool, dysuria or urinary symptoms, decreased urine output, leg or calf swelling or pain, or any other symptoms or complaints. - Related Data Home Medications Medication Instructions Recorded Confirmed Pravastatin Sodium [Pravachol] 80 mg PO HS 01/15/14 08/28/20 Ibandronate Sodium [Boniva] 150 mg PO Q30D 12/11/15 08/28/20 Aspirin [Adult Low Dose Aspirin EC] 81 mg PO HS 02/05/17 08/28/20 Calcium Carbonate [Calcium] 1,200 mg PO DAILY 05/29/17 08/28/20 lisinopriL 20 mg PO DAILY 09/30/19 08/28/20 metFORMIN HCL [Glucophage] 500 mg PO AC-SUPPER 09/30/19 08/28/20 Previous Rx's Medication Instructions Recorded Furosemide [Lasix] 20 mg PO DAILY #0 01/09/18 Allergies Allergy/AdvReac Type Severity Reaction Status Date / Time No Known Allergies Allergy Verified 08/28/20 18:19 Review of Systems ROS Statement: Those systems with pertinent positive or pertinent negative responses have been documented in the HPI. ROS Other: All systems not noted in ROS Statement are negative. Past Medical History Past Medical History: Diabetes Mellitus, Hyperlipidemia, Hypertension, Osteoarthritis (OA) Additional Past Medical History / Comment(s): Lumbar disc disease, chronic lower back pain, R sided sciatia, NIDDM type II, arthritis in multiple joints, benign colon polyps, diverticular disease, osteoporosis, bilateral leg/pedal edema, varicose veins bilateral legs, starting of cataracts bilateral eyes. History of Any Multi-Drug Resistant Organisms: None Reported Past Surgical History: Joint Replacement, Orthopedic Surgery, Tonsillectomy Additional Past Surgical History / Comment(s): Low back injections, bilateral total knee arthroplasties, bilateral feet bunionectomies, several D&Cs, colonoscopies/benign polypectomies. Past Anesthesia/Blood Transfusion Reactions: No Reported Reaction Past Psychological History: No Psychological Hx Reported Smoking Status: Never smoker Past Alcohol Use History: None Reported Past Drug Use History: None Reported - Past Family History Father Family Medical History: Congestive Heart Failure (CHF) Mother Family Medical History: Cancer Additional Family Medical History / Comment(s): UNSURE WHAT KIND OF CANCER, HEART PROBLEMS General Exam Limitations: no limitations General appearance: alert, in no apparent distress Head exam: Present: atraumatic, normocephalic Eye exam: Present: normal appearance, EOMI ENT exam: Present: normal oropharynx, mucous membranes moist Neck exam: Present: other (Trachea is in midline) Respiratory exam: Present: normal lung sounds bilaterally. Absent: respiratory distress, wheezes, rales, rhonchi, stridor Cardiovascular Exam: Present: regular rate, normal rhythm, normal heart sounds, other (Normal radial pulses bilaterally) GI/Abdominal exam: Present: soft, other (Obese abdomen). Absent: distended, tenderness, guarding Extremities exam: Present: other (Negative Homans sign bilaterally). Absent: tenderness, pedal edema, calf tenderness Neurological exam: Present: alert, oriented X3. Absent: motor sensory deficit Psychiatric exam: Present: normal affect, normal mood Skin exam: Present: warm, dry, intact, normal color Course Vital Signs 08/28/20 08/28/20 08/28/20 16:48 16:52 17:48 Temperature 99.1 F Pulse Rate 67 64 Respiratory 18 18 18 Rate Blood Pressure 142/50 129/74 O2 Sat by Pulse 98 98 Oximetry 08/28/20 19:30 Temperature Pulse Rate 66 Respiratory 18 Rate Blood Pressure 139/64 O2 Sat by Pulse 97 Oximetry - Reevaluation(s) Reevaluation #1: 08/28/20 20:06 Case, H&P, test results and ED management were discussed with Dr. Turcios. He accepts hospital admission. He recommends pulmonology consultation. He has no further recommendations at this time. 08/28/20 20:18 Patient denies development of any new symptoms while in the ED. Patient remains alert and breathing comfortably. Patient is aware of her test results, and she agrees with hospital admission at this time. EKG Findings - EKG Comments: EKG Findings:: Normal sinus rhythm, ventricular rate of 66 bpm, normal MD and QRS intervals, normal QT interval, normal axis, no ST or T-wave abnormality Medical Decision Making - Medical Decision Making Patient has tested Kopit positive. Patient is noted to have bilateral pulmonary infiltrates on chest x-ray and on CT angiography chest. I suspect that the patient's imaging findings reflect Covid pneumonia. He'll, the patient was treated with IV antibiotics for possible bacterial community-acquired pneumonia. Patient was also given a dose of IV Decadron in the ED. Pulmonology consultation was placed. Dr. Turcios has accepted hospital admission. - Lab Data Result diagrams: 08/28/20 17:48 08/28/20 17:48 Lab Results 08/28/20 08/28/20 08/28/20 Range/Units 17:48 17:48 17:48 WBC 3.1 L (3.8-10.6) k/uL RBC 4.00 (3.80-5.40) m/uL Hgb 12.5 (11.4-16.0) gm/dL Hct 36.0 (34.0-46.0) % MCV 90.0 D (80.0-100.0) fL MCH 31.3 (25.0-35.0) pg MCHC 34.8 (31.0-37.0) g/dL RDW 12.5 (11.5-15.5) % Plt Count 223 (150-450) k/uL MPV 7.7 Neutrophils % 79 % Lymphocytes % 13 % Monocytes % 5 % Eosinophils % 1 % Basophils % 0 % Neutrophils # 2.5 (1.3-7.7) k/uL Lymphocytes # 0.4 L (1.0-4.8) k/uL Monocytes # 0.2 (0-1.0) k/uL Eosinophils # 0.0 (0-0.7) k/uL Basophils # 0.0 (0-0.2) k/uL PT 11.1 (9.0-12.0) sec INR 1.0 (<1.2) APTT 24.7 (22.0-30.0) sec D-Dimer 0.93 H (<0.60) mg/L FEU Sodium 139 (137-145) mmol/L Potassium 4.1 (3.5-5.1) mmol/L Chloride 105 (98-107) mmol/L Carbon Dioxide 28 (22-30) mmol/L Anion Gap 6 mmol/L BUN 12 (7-17) mg/dL Creatinine 0.75 (0.52-1.04) mg/dL Est GFR (CKD-EPI)AfAm >90 (>60 ml/min/1.73 sqM) Est GFR (CKD-EPI)NonAf 81 (>60 ml/min/1.73 sqM) Glucose 104 H (74-99) mg/dL Plasma Lactic Acid Oswaldo (0.7-2.0) mmol/L Calcium 9.2 (8.4-10.2) mg/dL Total Bilirubin 0.5 (0.2-1.3) mg/dL AST 45 H (14-36) U/L ALT 20 (4-34) U/L Alkaline Phosphatase 51 (38-126) U/L Troponin I (0.000-0.034) ng/mL NT-Pro-B Natriuret Pep pg/mL Total Protein 5.6 L (6.3-8.2) g/dL Albumin 3.2 L (3.5-5.0) g/dL Coronavirus (PCR) (Not Detectd) 08/28/20 08/28/20 08/28/20 Range/Units 17:48 17:48 17:48 WBC (3.8-10.6) k/uL RBC (3.80-5.40) m/uL Hgb (11.4-16.0) gm/dL Hct (34.0-46.0) % MCV (80.0-100.0) fL MCH (25.0-35.0) pg MCHC (31.0-37.0) g/dL RDW (11.5-15.5) % Plt Count (150-450) k/uL MPV Neutrophils % % Lymphocytes % % Monocytes % % Eosinophils % % Basophils % % Neutrophils # (1.3-7.7) k/uL Lymphocytes # (1.0-4.8) k/uL Monocytes # (0-1.0) k/uL Eosinophils # (0-0.7) k/uL Basophils # (0-0.2) k/uL PT (9.0-12.0) sec INR (<1.2) APTT (22.0-30.0) sec D-Dimer (<0.60) mg/L FEU Sodium (137-145) mmol/L Potassium (3.5-5.1) mmol/L Chloride (98-107) mmol/L Carbon Dioxide (22-30) mmol/L Anion Gap mmol/L BUN (7-17) mg/dL Creatinine (0.52-1.04) mg/dL Est GFR (CKD-EPI)AfAm (>60 ml/min/1.73 sqM) Est GFR (CKD-EPI)NonAf (>60 ml/min/1.73 sqM) Glucose (74-99) mg/dL Plasma Lactic Acid Oswaldo 1.0 (0.7-2.0) mmol/L Calcium (8.4-10.2) mg/dL Total Bilirubin (0.2-1.3) mg/dL AST (14-36) U/L ALT (4-34) U/L Alkaline Phosphatase (38-126) U/L Troponin I <0.012 (0.000-0.034) ng/mL NT-Pro-B Natriuret Pep 773 pg/mL Total Protein (6.3-8.2) g/dL Albumin (3.5-5.0) g/dL Coronavirus (PCR) (Not Detectd) 08/28/20 Range/Units 17:48 WBC (3.8-10.6) k/uL RBC (3.80-5.40) m/uL Hgb (11.4-16.0) gm/dL Hct (34.0-46.0) % MCV (80.0-100.0) fL MCH (25.0-35.0) pg MCHC (31.0-37.0) g/dL RDW (11.5-15.5) % Plt Count (150-450) k/uL MPV Neutrophils % % Lymphocytes % % Monocytes % % Eosinophils % % Basophils % % Neutrophils # (1.3-7.7) k/uL Lymphocytes # (1.0-4.8) k/uL Monocytes # (0-1.0) k/uL Eosinophils # (0-0.7) k/uL Basophils # (0-0.2) k/uL PT (9.0-12.0) sec INR (<1.2) APTT (22.0-30.0) sec D-Dimer (<0.60) mg/L FEU Sodium (137-145) mmol/L Potassium (3.5-5.1) mmol/L Chloride (98-107) mmol/L Carbon Dioxide (22-30) mmol/L Anion Gap mmol/L BUN (7-17) mg/dL Creatinine (0.52-1.04) mg/dL Est GFR (CKD-EPI)AfAm (>60 ml/min/1.73 sqM) Est GFR (CKD-EPI)NonAf (>60 ml/min/1.73 sqM) Glucose (74-99) mg/dL Plasma Lactic Acid Oswaldo (0.7-2.0) mmol/L Calcium (8.4-10.2) mg/dL Total Bilirubin (0.2-1.3) mg/dL AST (14-36) U/L ALT (4-34) U/L Alkaline Phosphatase (38-126) U/L Troponin I (0.000-0.034) ng/mL NT-Pro-B Natriuret Pep pg/mL Total Protein (6.3-8.2) g/dL Albumin (3.5-5.0) g/dL Coronavirus (PCR) Detected A (Not Detectd) - Radiology Data Radiology results: report reviewed (CT angiography chest: Extensive bilateral pulmonary infiltrates, no evidence of pulmonary embolism, mild mediastinal and bronchial adenopathy), image reviewed (Chest x-ray shows bilateral interstitial pulmonary infiltrates) Disposition Clinical Impression: COVID-19, Pneumonia Disposition: ADMITTED IP TO THIS HOSP Condition: Stable Is patient prescribed a controlled substance at d/c from ED?: No Referrals: Diana Newman MD [Primary Care Provider] - 1-2 days Time of Disposition: 20:06
[2020-08-28] MEDS ORDERED: DEXAMETHASONE SOD PHOSPHATE 4 MG/ML 1 ML VIAL IV STA (18:05)
[2020-08-28] MEDS ORDERED: AZITHROMYCIN 500 MG in SODIUM CHLORIDE 0.9% 250 ML IVPB STA (18:06)
[2020-08-28 18:18] LABS: ALT 20 U/L (4-34); AST 45 U/L (14-36); African American GFR (CKD) >90 (>60 ml/min/1.73 sqM); Albumin 3.2 g/dL (3.5-5.0); Alkaline Phosphatase 51 U/L (38-126); Anion Gap 6 mmol/L; Basophils % (A) 0 %; Blood Urea Nitrogen 12 mg/dL (7-17); Calcium 9.2 mg/dL (8.4-10.2); Carbon Dioxide 28 mmol/L (22-30); Chloride 105 mmol/L (98-107); Eosinophils % (A) 1 %; Glucose 104 mg/dL (74-99); HGB 12.5 gm/dL (11.4-16.0); Lymphocytes # (A) 0.4 k/uL (1.0-4.8); Lymphocytes % (A) 13 %; MCH 31.3 pg (25.0-35.0); MCHC 34.8 g/dL (31.0-37.0); Mean Platelet Volume 7.7; Monocytes # (A) 0.2 k/uL (0-1.0); Monocytes % (A) 5 %; Neutrophils # (A) 2.5 k/uL (1.3-7.7); Neutrophils % (A) 79 %; Non-African American GFR(CKD) 81 (>60 ml/min/1.73 sqM); Platelet Count 223 k/uL (150-450); Potassium 4.1 mmol/L (3.5-5.1); RDW 12.5 % (11.5-15.5); Sodium 139 mmol/L (137-145); Total Bilirubin 0.5 mg/dL (0.2-1.3); Total Protein 5.6 g/dL (6.3-8.2); WBC 3.1 k/uL (3.8-10.6)
--- NOTE | 2020-08-28 18:21 | XR ---
EXAMINATION TYPE: XR chest 2V DATE OF EXAM: 08/28/2020 COMPARISON: 05/08/2019 HISTORY: Difficulty breathing TECHNIQUE: FINDINGS: There is pulmonary interstitial and to a lesser extent airspace edema. Heart is top normal in size. There are chest leads. Bony thorax is intact. IMPRESSION: There is some mild pulmonary edema that is new compared to old exam and consistent with a cute pneumonia.
[2020-08-28 18:38] LABS: Partial Thromboplastin Time 24.7 sec (22.0-30.0); Prothrombin Time 11.1 sec (9.0-12.0)
[2020-08-28 18:49] LABS: D-Dimer 0.93 mg/L FEU (<0.60)
--- NOTE | 2020-08-28 19:46 | CT ---
EXAMINATION TYPE: CT chest angio for PE DATE OF EXAM: 08/28/2020 COMPARISON: 10/07/2019 HISTORY: Shortness of breath and cough. CT DLP: 855.3 mGycm Automated exposure control for dose reduction was used. CONTRAST: Performed with IV Contrast, patient injected with 100 mL of Isovue 370. Images were obtained from the thoracic inlet to the diaphragm with IV contrast and 3-D post processed images. There is extensive coarse patchy infiltrate in both lungs. This is seen in the upper and lower lobes. There are few mediastinal lymph nodes that measure up to 1 cm. There are bilateral bronchial multiple lymph nodes that measure up to 1.5 cm. The thoracic aorta is intact. There is no aneurysm or dissection. The ascending aorta measures 3.8 cm . There is normal contrast opacification of the pulmonary arteries. There are no filling defects. The thoracic spine is intact. There is some spurring of the endplates. The sternum is intact. I see n o bony destructive process. IMPRESSION: No evidence of pulmonary embolism. Extensive bilateral pulmonary infiltrates are essentially new comp ared to old exam. Mild mediastinal and bronchial adenopathy is new compared to old exam. This is cons istent with inflammatory disease.
[2020-08-28] MEDS: ASPIRIN 81 MG PO SCH (21:11)
[2020-08-28 21:39] LABS: Glucose,Whole Blood 137 mg/dL (75-99)
[2020-08-28] MEDS: PRAVASTATIN SODIUM 80 MG TAB PO SCH (21:42)
[2020-08-28] MEDS ORDERED: REMDESIVIR 200 MG in SODIUM CHLORIDE 0.9% 250 ML IVPB ONE (21:45)
--- NOTE | 2020-08-29 01:29 | P.HPIM ---
History of Present Illness H&P Date: 08/28/20 Chief Complaint: SOB, coughing 69 year old female with DM, hypertension patient comes in with 1 week symptoms of URI , dry non productive cough, with runny nose, no chest pain , but this has progressed to easy fatiguability today, when she was tested positive to COVID and found to be hypoxemic at the urgent care. who recommended that she comes to the ED. she has positive confirmed contact with her who has been battling COVID in the hospital and transferred to the ICU today due to worsening hypoxemia , he had symptoms for about 10 days now. patient also adds, that she has been having loose stools. but denies any fever, chills, loss of taste or smell sensation denies any body aches. she otherwise denies any hemoptysis , or gi bleeding in the ED, CTA of the chest showed inflammatory changes but no acute PE. Review of Systems Pertinent positives as noted in HPI. All other systems were reviewed and are negative Past Medical History Past Medical History: Diabetes Mellitus, Hyperlipidemia, Hypertension, Osteoarthritis (OA) Additional Past Medical History / Comment(s): Lumbar disc disease, chronic lower back pain, R sided sciatia, NIDDM type II, arthritis in multiple joints, benign colon polyps, diverticular disease, osteoporosis, bilateral leg/pedal edema, varicose veins bilateral legs, starting of cataracts bilateral eyes. History of Any Multi-Drug Resistant Organisms: None Reported Past Surgical History: Joint Replacement, Orthopedic Surgery, Tonsillectomy Additional Past Surgical History / Comment(s): Low back injections, bilateral total knee arthroplasties, bilateral feet bunionectomies, several D&Cs, colonoscopies/benign polypectomies. Past Anesthesia/Blood Transfusion Reactions: No Reported Reaction Past Psychological History: No Psychological Hx Reported Smoking Status: Never smoker Past Alcohol Use History: None Reported Past Drug Use History: None Reported - Past Family History Father Family Medical History: Congestive Heart Failure (CHF) Mother Family Medical History: Cancer Additional Family Medical History / Comment(s): UNSURE WHAT KIND OF CANCER, HEART PROBLEMS Medications and Allergies Home Medications Medication Instructions Recorded Confirmed Type Pravastatin Sodium [Pravachol] 80 mg PO HS 01/15/14 08/28/20 History Ibandronate Sodium [Boniva] 150 mg PO Q30D 12/11/15 08/28/20 History Aspirin [Adult Low Dose Aspirin EC] 81 mg PO HS 02/05/17 08/28/20 History Calcium Carbonate [Calcium] 1,200 mg PO DAILY 05/29/17 08/28/20 History Furosemide [Lasix] 20 mg PO DAILY #0 01/09/18 08/28/20 Rx lisinopriL 20 mg PO DAILY 09/30/19 08/28/20 History metFORMIN HCL [Glucophage] 500 mg PO AC-SUPPER 09/30/19 08/28/20 History Allergies Allergy/AdvReac Type Severity Reaction Status Date / Time No Known Allergies Allergy Verified 08/28/20 18:19 Physical Exam Vitals: Vital Signs Temp Pulse Resp BP Pulse Ox 08/28/20 20:52 98.7 F 62 18 122/87 97 08/28/20 20:00 58 L 16 138/69 97 08/28/20 19:30 66 18 139/64 97 08/28/20 17:48 64 18 129/74 98 08/28/20 16:52 18 08/28/20 16:48 99.1 F 67 18 142/50 98 Intake and Output 08/28/20 08/28/20 08/28/20 06:59 14:59 22:59 Other: Weight 119.748 kg Constitutional: No acute distress, conversant, pleasant, on 2 L NC Eyes: Anicteric sclerae, moist conjunctiva, Pupils equal round reactive to light ENMT: NC/AT Oropharynx clear, no erythema, or exudates Neck: Supple, FROM, no masses, or JVD No carotid bruits No thyromegaly Lungs: Clear to auscultation Clear to percussion Normal respiratory effort, no accessory muscle use Cardiovascular: Heart regular in rate and rhythm, No murmurs, gallops, or rubs No peripheral edema Abdominal: Soft Nontender, no guarding, rebound or rigidity Abdomen moving with respiration Normoactive bowel sounds No hepatomegaly, No splenomegaly No palpable mass No abdominal wall hernia noted Skin: Normal temperature, tone, texture, turgor No induration No subcutaneous nodules No rash, lesions No ulcers Extremities: No digital cyanosis No clubbing Pedal pulses intact and symmetrical Radial pulses intact and symmetrical No calf tenderness Psychiatric: Alert and oriented to person, place and time Appropriate affect fair judgement Neuro Muscles Strength 5/5 in all 4 extremities Sensation to light touch grossly present throughout Cranial nerves II-XII grossly intact No focal sensory deficits Lymphatics: no palpable cervical or supraclavicular , or inguinal lymph nodes Results CBC & Chem 7: 08/28/20 17:48 08/28/20 17:48 Labs: Abnormal Lab Results - Last 24 Hours (Table) 08/28/20 08/28/20 08/28/20 Range/Units 17:48 17:48 17:48 WBC 3.1 L (3.8-10.6) k/uL Lymphocytes # 0.4 L (1.0-4.8) k/uL D-Dimer 0.93 H (<0.60) mg/L FEU Glucose 104 H (74-99) mg/dL AST 45 H (14-36) U/L Total Protein 5.6 L (6.3-8.2) g/dL Albumin 3.2 L (3.5-5.0) g/dL Coronavirus (PCR) (Not Detectd) 08/28/20 Range/Units 17:48 WBC (3.8-10.6) k/uL Lymphocytes # (1.0-4.8) k/uL D-Dimer (<0.60) mg/L FEU Glucose (74-99) mg/dL AST (14-36) U/L Total Protein (6.3-8.2) g/dL Albumin (3.5-5.0) g/dL Coronavirus (PCR) Detected A (Not Detectd) Assessment and Plan Assessment: acute hypoxemic respiratory failure COVID pneumonitis plan CTA no acute PE elevated d dimer for prognostic evaluation check ferritin, LDH, CRP supplemental oxygen as needed droplet and contact precautions pulmonary consult remdesivir convalescent plasma decadrone chronic conditions hypertension DM , insulin sliding scale resume home meds CODE STATUS:Full code DVT prophylaxis: hepairn sc tid Discussed with: Patient, ER, RN Anticipated length of stay > than [address]: pending clinical course A total of 75 minutes was spent on the care of this complex patient more than 50% of the time was spent in counseling and care coordination.
[2020-08-29 07:27] LABS: Glucose,Whole Blood 247 mg/dL (75-99)
[2020-08-29 07:57] LABS: Basophils % (A) 0 %; Eosinophils % (A) 0 %; HCT 34.1 % (34.0-46.0); HGB 11.7 gm/dL (11.4-16.0); Lymphocytes # (A) 0.3 k/uL (1.0-4.8); Lymphocytes % (A) 15 %; MCH 31.9 pg (25.0-35.0); MCHC 34.2 g/dL (31.0-37.0); MCV 93.2 fL (80.0-100.0); Mean Platelet Volume 7.9; Monocytes # (A) 0.1 k/uL (0-1.0); Monocytes % (A) 5 %; Neutrophils # (A) 1.4 k/uL (1.3-7.7); Neutrophils % (A) 78 %; Platelet Count 208 k/uL (150-450); RBC 3.66 m/uL (3.80-5.40); RDW 12.6 % (11.5-15.5); WBC 1.8 k/uL (3.8-10.6)
[2020-08-29] MEDS ORDERED: HEPARIN SODIUM,PORCINE 5,000 UNIT/ML 1 ML VIAL SQ SCH (08:00)
[2020-08-29] MEDS: dexAMETHasone 2 MG TAB PO SCH (08:21)
[2020-08-29] MEDS: INSULIN ASPART (NovoLOG) 100 UNIT/ML VIAL SQ SCH ×4 (08:21→21:17)
[2020-08-29] MEDS: FUROSEMIDE 20 MG TAB PO SCH (08:27)
[2020-08-29] MEDS: lisinopriL 20 MG TAB PO SCH (08:27)
[2020-08-29 11:12] LABS: Glucose,Whole Blood 255 mg/dL (75-99)
[2020-08-29 12:11] LABS: Albumin 3.5 g/dL (3.80-4.90); Albumin/Globulin Ratio 2.5 (1.60-3.17); Anion Gap 7.2 mmol/L (4.00-12.00); BUN/Creat Ratio 18.75 Ratio (12.00-20.00); Calcium 8.6 mg/dL (8.7-10.3); Carbon Dioxide 27.8 mmol/L (21.6-31.8); Ferritin 743.7 ng/mL (10.0-291.0); Globulin 1.4 g/dL (1.6-3.3); Non-African American GFR(CKD) 74.2 (60.0-200.0); Potassium 4.2 mmol/L (3.5-5.5); Total Bilirubin 0.2 mg/dL (0.3-1.2); Total Protein 4.9 g/dL (6.2-8.2)
--- NOTE | 2020-08-29 12:34 | P.CNPUL ---
History of Present Illness Consult date: 08/29/20 Requesting physician: Dorota Turcios Reason for consult: dyspnea, abnormal CXR/CT Chief complaint: Cough, congestion, fatigue, weakness History of present illness: This is a very pleasant 69-year-old female patient with a history of diabetes mellitus, hyperlipidemia, hypertension, osteoarthritis, chronic low back pain. She had developed a 1 week history of cough, fatigue, weakness, nausea and diarrhea. She was seen at [facility] yesterday and tested positive for CoVID 19 infection. Based on her symptoms of shortness of breath and hypoxemia she was brought here to the emergency room by EMS. CT angiogram ruled out pulmonary embolism. There is extensive bilateral pulmonary infiltrates. Mild mediastinal bronchial adenopathy. Consistent with inflammatory disease. Of note, her hus band is here in the intensive care unit with CoVID 19 pneumonitis. She is seen today in consultation on the regular medical floor. White count 1.8. Hemoglobin 11.7. Lymphocytes 0.3. D-dimer 0.93. Sodium 142. Potassium 4.2. Creatinine 0.8. Glucose 246. LDH 336. C-reactive protein 15. She had been initiated on Remdesivir. This is day #2. On dexamethasone, heparin subcu for DVT prophylaxis, one unit of convalescent plasma has been ordered but not issued yet. Review of Systems REVIEW OF SYSTEMS: CONSTITUTIONAL: Fatigue, weakness, fever Denies any recent significant weight loss or weight gain. EYES: Denies change in vision. EARS, NOSE, MOUTH, THROAT: Denies headaches, denies sore throat. CARDIOVASCULAR: Denies chest pain, palpitations or syncopal episodes. RESPIRATORY: Positive for shortness of breath, cough, congestion no hemoptysis. GASTROINTESTINAL: Denies change in appetite, denies abdominal pain GENITOURINARY: Denies hematuria, denies infections. MUSKULOSKELETAL: Denies pain, denies swelling. INTEGUMENTARY: Denies rash, denies eczema. NEUROLOGICAL: Denies recent memory loss, no recent seizure activity. PSYCHIATRIC: Denies anxiety, denies depression. HEMATOLOGIC/LYMPHATIC: Denies anemia, denies enlarged lymph nodes. Past Medical History Past Medical History: Diabetes Mellitus, Hyperlipidemia, Hypertension, Osteoarthritis (OA) Additional Past Medical History / Comment(s): Lumbar disc disease, chronic lower back pain, R sided sciatia, NIDDM type II, arthritis in multiple joints, benign colon polyps, diverticular disease, osteoporosis, bilateral leg/pedal edema, varicose veins bilateral legs, starting of cataracts bilateral eyes. History of Any Multi-Drug Resistant Organisms: None Reported Past Surgical History: Joint Replacement, Orthopedic Surgery, Tonsillectomy Additional Past Surgical History / Comment(s): Low back injections, bilateral total knee arthroplasties, bilateral feet bunionectomies, several D&Cs, colonoscopies/benign polypectomies. Past Anesthesia/Blood Transfusion Reactions: No Reported Reaction Past Psychological History: No Psychological Hx Reported Smoking Status: Never smoker Past Alcohol Use History: None Reported Past Drug Use History: None Reported - Past Family History Father Family Medical History: Congestive Heart Failure (CHF) Mother Family Medical History: Cancer Additional Family Medical History / Comment(s): UNSURE WHAT KIND OF CANCER, HEART PROBLEMS Medications and Allergies Home Medications Medication Instructions Recorded Confirmed Type Pravastatin Sodium [Pravachol] 80 mg PO HS 01/15/14 08/28/20 History Ibandronate Sodium [Boniva] 150 mg PO Q30D 12/11/15 08/28/20 History Aspirin [Adult Low Dose Aspirin EC] 81 mg PO HS 02/05/17 08/28/20 History Calcium Carbonate [Calcium] 1,200 mg PO DAILY 05/29/17 08/28/20 History Furosemide [Lasix] 20 mg PO DAILY #0 01/09/18 08/28/20 Rx lisinopriL 20 mg PO DAILY 09/30/19 08/28/20 History metFORMIN HCL [Glucophage] 500 mg PO AC-SUPPER 09/30/19 08/28/20 History Allergies Allergy/AdvReac Type Severity Reaction Status Date / Time No Known Allergies Allergy Verified 08/28/20 18:19 Physical Exam Vitals: Vital Signs Temp Pulse Pulse Resp BP BP Pulse Ox 08/29/20 11:06 97.9 F 50 L 16 124/63 95 08/29/20 05:27 97.8 F 52 L 18 152/77 97 08/28/20 21:37 98.0 F 62 20 143/80 92 L 08/28/20 20:52 98.7 F 62 18 122/87 97 08/28/20 20:00 58 L 16 138/69 97 08/28/20 19:30 66 18 139/64 97 08/28/20 17:48 64 18 129/74 98 08/28/20 16:52 18 08/28/20 16:48 99.1 F 67 18 142/50 98 Intake and Output 08/28/20 08/29/20 08/29/20 22:59 06:59 14:59 Other: # Voids 1 Weight 119.748 kg GENERAL EXAM: Alert, very pleasant 69-year-old female patient, on 2 L nasal cannula, active, comfortable in no apparent distress. HEAD: Normocephalic. EYES: Normal reaction of pupils, equal size. NOSE: Clear with pink turbinates. THROAT: No erythema or exudates. NECK: No masses, no JVD. CHEST: No chest wall deformity. LUNGS: Equal air entry with bibasilar coarse crackles. CVS: S1 and S2 normal with no audible murmur, regular rhythm. ABDOMEN: No hepatosplenomegaly, normal bowel sounds, no guarding or rigidity. SPINE: No scoliosis or deformity SKIN: No rashes CENTRAL NERVOUS SYSTEM: No focal deficits, tone is normal in all 4 extremities. EXTREMITIES: There is no peripheral edema. No clubbing, no cyanosis. Peripheral pulses are intact. Results - Laboratory Findings CBC and BMP: 08/29/20 06:26 08/29/20 06:26 PT/INR, D-dimer PT 11.1 sec (9.0-12.0) 08/28/20 17:48 INR 1.0 (<1.2) 08/28/20 17:48 D-Dimer 0.93 mg/L FEU (<0.60) H 08/28/20 17:48 Abnormal lab findings: Abnormal Labs 08/28/20 08/28/20 08/28/20 17:48 17:48 17:48 WBC 3.1 L RBC Lymphocytes # 0.4 L D-Dimer 0.93 H Glucose 104 H POC Glucose (mg/dL) Calcium Ferritin Total Bilirubin AST 45 H Lactate Dehydrogenase C-Reactive Protein Total Protein 5.6 L Albumin 3.2 L Globulin Coronavirus (PCR) 08/28/20 08/28/20 08/29/20 17:48 21:38 06:26 WBC 1.8 L RBC 3.66 L Lymphocytes # 0.3 L D-Dimer Glucose POC Glucose (mg/dL) 137 H Calcium Ferritin Total Bilirubin AST Lactate Dehydrogenase C-Reactive Protein Total Protein Albumin Globulin Coronavirus (PCR) Detected A 08/29/20 08/29/20 08/29/20 06:26 07:26 11:09 WBC RBC Lymphocytes # D-Dimer Glucose 246 H POC Glucose (mg/dL) 247 H 255 H Calcium 8.6 L Ferritin 743.7 H Total Bilirubin 0.2 L AST Lactate Dehydrogenase 336 H C-Reactive Protein 15.0 H Total Protein 4.9 L Albumin 3.50 L Globulin 1.4 L Coronavirus (PCR) - Diagnostic Findings Chest x-ray: image reviewed CT scan - chest: image reviewed Assessment and Plan Assessment: 1 Acute hypoxic respiratory failure secondary to acute CoVID 19 pneumonitis. Initiated on Remdesivir 08/28/2020 and 1 unit convalescent plasma pending 2 Elevated inflammatory markers secondary to above 3 Obesity 4 Diabetes mellitus, type II 5 Hyperlipidemia 6 Hypertension 7 Osteoarthritis Plan: The patient was seen and evaluated by Dr. Bhatti Chest x-ray, CAT scans and labs reviewed Continue Remdesivir, awaiting 1 unit of convalescent plasma Continue dexamethasone 6 mg daily 10 days Discontinue heparin and initiate Lovenox 40 mg daily Follow-up inflammatory markers and d-dimer in a.m. Add Pepcid, melatonin, vitamin C, vitamin D, zinc Titrate down the FiO2 as tolerated We will continue to follow and make further recommendations based on her clinical status I, the cosigning physician, performed a history & physical examination of the patient. Lungs sounds with basilar coarse crackles Maintaining good O2 saturations in the 90s on 2 L/m per nasal cannula. I discussed the assessment and plan of care with my nurse practitioner, Lulu Chatman. I attest to the above consultation as dictated by her. Time with Patient: Greater than 30
--- NOTE | 2020-08-29 14:00 | P.PN ---
Subjective Progress Note Date: 08/29/20 Principal diagnosis: Shortness of breath found to have Covid 19 pneumonia Patient states that her shortness of breath is improving. She is currently on 2 L nasal cannula and his satting well. Patient asked how her was doing. Objective - Vital Signs Vital signs: Vital Signs Temp 97.9 F 08/29/20 11:06 Pulse 50 L 08/29/20 11:06 Resp 16 08/29/20 11:06 BP 124/63 08/29/20 11:06 Pulse Ox 95 08/29/20 11:06 Intake & Output 08/28/20 08/29/20 08/29/20 18:59 06:59 18:59 Weight 119.748 kg 119.748 kg Other: # Voids 1 - Exam General examination - Alert and Oriented 3 in NAD Heart - + S1S2 no murmurs Lungs - diminished breath sounds bilaterally Abdomen soft NT ND +ve BS, obese Extremities - No edema [employer] - Moving all 4 extremities spontaneously Psych - Calm and cooperative - Labs CBC & Chem 7: 08/29/20 06:26 08/29/20 06:26 Labs: Abnormal Lab Results - Last 24 Hours (Table) 08/28/20 08/28/20 08/28/20 Range/Units 17:48 17:48 17:48 WBC 3.1 L (3.8-10.6) k/uL RBC (3.80-5.40) m/uL Lymphocytes # 0.4 L (1.0-4.8) k/uL D-Dimer 0.93 H (<0.60) mg/L FEU Glucose 104 H (74-99) mg/dL POC Glucose (mg/dL) (75-99) mg/dL Calcium (8.7-10.3) mg/dL Ferritin (10.0-291.0) ng/mL Total Bilirubin (0.3-1.2) mg/dL AST 45 H (14-36) U/L Lactate Dehydrogenase (120-246) U/L C-Reactive Protein (0.0-0.8) mg/dL Total Protein 5.6 L (6.3-8.2) g/dL Albumin 3.2 L (3.5-5.0) g/dL Globulin (1.6-3.3) g/dL Coronavirus (PCR) (Not Detectd) 08/28/20 08/28/20 08/29/20 Range/Units 17:48 21:38 06:26 WBC 1.8 L (3.8-10.6) k/uL RBC 3.66 L (3.80-5.40) m/uL Lymphocytes # 0.3 L (1.0-4.8) k/uL D-Dimer (<0.60) mg/L FEU Glucose (74-99) mg/dL POC Glucose (mg/dL) 137 H (75-99) mg/dL Calcium (8.7-10.3) mg/dL Ferritin (10.0-291.0) ng/mL Total Bilirubin (0.3-1.2) mg/dL AST (14-36) U/L Lactate Dehydrogenase (120-246) U/L C-Reactive Protein (0.0-0.8) mg/dL Total Protein (6.3-8.2) g/dL Albumin (3.5-5.0) g/dL Globulin (1.6-3.3) g/dL Coronavirus (PCR) Detected A (Not Detectd) 08/29/20 08/29/20 08/29/20 Range/Units 06:26 07:26 11:09 WBC (3.8-10.6) k/uL RBC (3.80-5.40) m/uL Lymphocytes # (1.0-4.8) k/uL D-Dimer (<0.60) mg/L FEU Glucose 246 H (74-99) mg/dL POC Glucose (mg/dL) 247 H 255 H (75-99) mg/dL Calcium 8.6 L (8.7-10.3) mg/dL Ferritin 743.7 H (10.0-291.0) ng/mL Total Bilirubin 0.2 L (0.3-1.2) mg/dL AST (14-36) U/L Lactate Dehydrogenase 336 H (120-246) U/L C-Reactive Protein 15.0 H (0.0-0.8) mg/dL Total Protein 4.9 L (6.3-8.2) g/dL Albumin 3.50 L (3.5-5.0) g/dL Globulin 1.4 L (1.6-3.3) g/dL Coronavirus (PCR) (Not Detectd) Assessment and Plan Assessment: #Acute hypoxemic respiratory failure #COVID 19 pneumonia -CT chest negative for acute PE -Supplemental oxygen as needed -Remdesivir day 09/25 -Decadron day 09/30 -Pepcid, melatonin, vitamin C, vitamin D, zinc -Pulmonology ordered 1 unit of convalescent plasma -Patient currently satting well on 2 L nasal cannula -Subcu Lovenox -Follow inflammatory markers #Sinus bradycardia -Likely due to remdesivir -Patient is asymptomatic #Hypertension -Resume home BP meds #Hyperlipidemia -Resume statin #Diabetes mellitus -Hold metformin. Sliding scale insulin. Titrate insulin for better control. Of note patient's also has Covid 19 pneumonia and is doing poorly in the ICU CODE STATUS:Full code DVT prophylaxis: Subcu Lovenox Anticipated length of stay > than [address]: pending clinical course
[2020-08-29] MEDS: ASCORBIC ACID 500 MG TAB PO SCH (14:01)
[2020-08-29] MEDS: CHOLECALCIFEROL 1,000 UNIT TAB PO SCH (14:01)
[2020-08-29] MEDS: FAMOTIDINE 20 MG TAB PO SCH (14:01)
[2020-08-29] MEDS: ZINC SULFATE 220 MG CAP PO SCH (14:01)
[2020-08-29 16:38] LABS: Glucose,Whole Blood 246 mg/dL (75-99)
[2020-08-29] MEDS ORDERED: metFORMIN 500 MG TAB PO SCH (17:30)
[2020-08-29 21:04] LABS: Glucose,Whole Blood 249 mg/dL (75-99)
[2020-08-29] MEDS: MELATONIN 5 MG TABLET PO SCH (21:17)
[2020-08-29] MEDS: ASPIRIN 81 MG PO SCH (21:17)
[2020-08-29] MEDS: ENOXAPARIN 40 MG/0.4 ML SYRINGE SQ SCH (21:17)
[2020-08-29] MEDS: REMDESIVIR 100 MG in SODIUM CHLORIDE 0.9% 250 ML IVPB SCH (22:05)
[2020-08-29] MEDS: PRAVASTATIN SODIUM 80 MG TAB PO SCH (22:05)
[2020-08-30 06:30] LABS: Glucose,Whole Blood 186 mg/dL (75-99)
[2020-08-30] MEDS: INSULIN ASPART (NovoLOG) 100 UNIT/ML VIAL SQ SCH ×4 (06:32→22:21)
[2020-08-30 06:53] LABS: Basophils % (A) 0 %; Eosinophils % (A) 0 %; HCT 34.1 % (34.0-46.0); HGB 11.8 gm/dL (11.4-16.0); Lymphocytes # (A) 0.5 k/uL (1.0-4.8); Lymphocytes % (A) 11 %; MCH 31.8 pg (25.0-35.0); MCHC 34.6 g/dL (31.0-37.0); MCV 91.9 fL (80.0-100.0); Mean Platelet Volume 7.9; Monocytes # (A) 0.2 k/uL (0-1.0); Monocytes % (A) 5 %; Neutrophils # (A) 3.3 k/uL (1.3-7.7); Neutrophils % (A) 82 %; Platelet Count 244 k/uL (150-450); RBC 3.71 m/uL (3.80-5.40); RDW 12.6 % (11.5-15.5)
[2020-08-30 07:07] LABS: ALT 16 U/L (4-34); AST 24 U/L (14-36); African American GFR (CKD) >90 (>60 ml/min/1.73 sqM); Albumin 2.8 g/dL (3.5-5.0); Alkaline Phosphatase 51 U/L (38-126); Anion Gap 4 mmol/L; Blood Urea Nitrogen 24 mg/dL (7-17); C Reactive Protein 82.5 mg/L (<10.0); Calcium 8.8 mg/dL (8.4-10.2); Carbon Dioxide 26 mmol/L (22-30); Chloride 108 mmol/L (98-107); Glucose 186 mg/dL (74-99); LDH 707 U/L (313-618); Non-African American GFR(CKD) 83 (>60 ml/min/1.73 sqM); Sodium 138 mmol/L (137-145); Total Bilirubin 0.3 mg/dL (0.2-1.3); Total Protein 5.1 g/dL (6.3-8.2)
[2020-08-30] MEDS ORDERED: ENOXAPARIN 40 MG/0.4 ML SYRINGE SQ SCH (09:00)
[2020-08-30] MEDS: ASCORBIC ACID 500 MG TAB PO SCH (09:55)
[2020-08-30] MEDS: dexAMETHasone 2 MG TAB PO SCH (09:55)
[2020-08-30] MEDS: CHOLECALCIFEROL 1,000 UNIT TAB PO SCH (09:55)
[2020-08-30] MEDS: lisinopriL 20 MG TAB PO SCH (09:55)
[2020-08-30] MEDS: ENOXAPARIN 40 MG/0.4 ML SYRINGE SQ SCH ×2 (09:55→22:21)
[2020-08-30] MEDS: FUROSEMIDE 20 MG TAB PO SCH (09:55)
[2020-08-30] MEDS: ZINC SULFATE 220 MG CAP PO SCH (09:55)
[2020-08-30] MEDS: FAMOTIDINE 20 MG TAB PO SCH (09:55)
--- NOTE | 2020-08-30 10:10 | P.PN ---
Subjective Progress Note Date: 08/30/20 Principal diagnosis: Shortness of breath found to have Covid 19 pneumonia Patient says that her breathing is improving. She says that she has been getting up to use the bathroom. I also updated her on her status was also admitted with covid 19 pneumonia Objective - Vital Signs Vital signs: Vital Signs Temp 97.4 F L 08/30/20 04:00 Pulse 48 L 08/30/20 04:00 Resp 20 08/30/20 04:00 BP 123/60 08/30/20 04:00 Pulse Ox 95 08/30/20 04:00 Intake & Output 08/29/20 08/30/20 08/30/20 18:59 06:59 18:59 Intake Total 240 240 Balance 240 240 Weight 106.5 kg Intake: Oral 240 240 Other: Voiding Method Toilet Toilet - Exam General examination - Alert and Oriented 3 in NAD Heart - + S1S2 no murmurs Lungs - diminished breath sounds bilaterally Abdomen soft NT ND +ve BS, obese Extremities - No edema [employer] - Moving all 4 extremities spontaneously Psych - Calm and cooperative - Labs CBC & Chem 7: 08/30/20 06:38 08/30/20 06:38 Labs: Abnormal Lab Results - Last 24 Hours (Table) 08/29/20 08/29/20 08/29/20 Range/Units 06:26 11:09 16:37 RBC (3.80-5.40) m/uL Lymphocytes # (1.0-4.8) k/uL D-Dimer (<0.60) mg/L FEU Chloride (98-107) mmol/L BUN (7-17) mg/dL Glucose 246 H (70-110) mg/dL POC Glucose (mg/dL) 255 H 246 H (75-99) mg/dL Calcium 8.6 L (8.7-10.3) mg/dL Ferritin 743.7 H (10.0-291.0) ng/mL Total Bilirubin 0.2 L (0.3-1.2) mg/dL Lactate Dehydrogenase 336 H (120-246) U/L C-Reactive Protein 15.0 H (0.0-0.8) mg/dL Total Protein 4.9 L (6.2-8.2) g/dL Albumin 3.50 L (3.80-4.90) g/dL Globulin 1.4 L (1.6-3.3) g/dL 08/29/20 08/30/20 08/30/20 Range/Units 21:01 06:23 06:38 RBC 3.71 L (3.80-5.40) m/uL Lymphocytes # 0.5 L (1.0-4.8) k/uL D-Dimer (<0.60) mg/L FEU Chloride (98-107) mmol/L BUN (7-17) mg/dL Glucose (70-110) mg/dL POC Glucose (mg/dL) 249 H 186 H (75-99) mg/dL Calcium (8.7-10.3) mg/dL Ferritin (10.0-291.0) ng/mL Total Bilirubin (0.3-1.2) mg/dL Lactate Dehydrogenase (120-246) U/L C-Reactive Protein (0.0-0.8) mg/dL Total Protein (6.2-8.2) g/dL Albumin (3.80-4.90) g/dL Globulin (1.6-3.3) g/dL 08/30/20 08/30/20 Range/Units 06:38 06:38 RBC (3.80-5.40) m/uL Lymphocytes # (1.0-4.8) k/uL D-Dimer 1.05 H (<0.60) mg/L FEU Chloride 108 H (98-107) mmol/L BUN 24 H (7-17) mg/dL Glucose 186 H (70-110) mg/dL POC Glucose (mg/dL) (75-99) mg/dL Calcium (8.7-10.3) mg/dL Ferritin (10.0-291.0) ng/mL Total Bilirubin (0.3-1.2) mg/dL Lactate Dehydrogenase 707 H (120-246) U/L C-Reactive Protein 82.5 H (0.0-0.8) mg/dL Total Protein 5.1 L (6.2-8.2) g/dL Albumin 2.8 L (3.80-4.90) g/dL Globulin (1.6-3.3) g/dL Microbiology - Last 24 Hours (Table) 08/28/20 17:48 Blood Culture - Preliminary Blood No Growth after 24 hours Assessment and Plan Assessment: #Acute hypoxemic respiratory failure #COVID 19 pneumonia -CT chest negative for acute PE -Supplemental oxygen as needed -Remdesivir day 10/23 -Decadron day 10/28 -Pepcid, melatonin, vitamin C, vitamin D, zinc -Pulmonology ordered 1 unit of convalescent plasma -Patient currently satting well on 2 L nasal cannula -Subcu Lovenox -Follow inflammatory markers #Sinus bradycardia -Likely due to remdesivir -Patient is asymptomatic -Cardiology consult #Hypertension -Resume home BP meds #Hyperlipidemia -Resume statin #Diabetes mellitus -Hold metformin. Sliding scale insulin. Titrate insulin for better control. Of note patient's also has Covid 19 pneumonia and is doing poorly in the ICU CODE STATUS:Full code DVT prophylaxis: Subcu Lovenox Anticipated length of stay > than [address]: pending clinical course
--- NOTE | 2020-08-30 10:45 | P.CRDCN ---
History of Present Illness Consult date: 08/30/20 Requesting physician: Tarun Bhatti Reason for Consult (text): bradycardia Chief complaint: shortness of breath, cough, chest congestion History of present illness: This is a pleasant 69-year-old female patient who follows in the office with Dr. Brown. Has a past medical history of hypertension, hyperlipidemia, diabetes. She been experiencing shortness of breath cough and congestion for about a week. Her has also been ill and is currently in the intensive care unit. She presented to [facility] and was found to be positive for COVID-19. Her oxygen saturation was low and therefore she was sent transferred here via EMS. She's been started on dexamethasone as well as Remdesivir. We were asked to see the patient in consultation for bradycardia. Rate has been running in the 40s. EKG shows sinus bradycardia. No evidence of heart block. On admission troponin is negative 1, NT proBNP came back at 773. Labs this morning showed potassium 4.0, BUN 24, creatinine 0.74, Lactate Dehydrogenase 707, CRP 82.5. CT of the chest showed no evidence of pulmonary embolism, extensive bilateral pulmonary infiltrates are essentially new compared to old exam. Mild mediastinal and br onchial adenopathy is new compared to old exam. Consistent with inflammatory disease. Chest x-ray showed mild pulmonary edema and consistent with acute pneumonia. Her pressure has been stable. She has been afebrile. Heart rate remains in the 40s. Upon examination she is sitting up in a chair. She appears to be in no acute distress. Overall she feels that she is improving. Her breathing is better and her cough and congestion have improved some. She continues to complain of fatigue and weakness. She has had no complaints of chest discomfort, dizziness, near syncope or syncope. Past Medical History Past Medical History: Diabetes Mellitus, Hyperlipidemia, Hypertension, Osteoarthritis (OA) Additional Past Medical History / Comment(s): Lumbar disc disease, chronic lower back pain, R sided sciatia, NIDDM type II, arthritis in multiple joints, benign colon polyps, diverticular disease, osteoporosis, bilateral leg/pedal edema, varicose veins bilateral legs, starting of cataracts bilateral eyes. History of Any Multi-Drug Resistant Organisms: None Reported Past Surgical History: Joint Replacement, Orthopedic Surgery, Tonsillectomy Additional Past Surgical History / Comment(s): Low back injections, bilateral total knee arthroplasties, bilateral feet bunionectomies, several D&Cs, colonoscopies/benign polypectomies. Past Anesthesia/Blood Transfusion Reactions: No Reported Reaction Past Psychological History: No Psychological Hx Reported Smoking Status: Never smoker Past Alcohol Use History: None Reported Past Drug Use History: None Reported - Past Family History Father Family Medical History: Congestive Heart Failure (CHF) Mother Family Medical History: Cancer Additional Family Medical History / Comment(s): UNSURE WHAT KIND OF CANCER, HEART PROBLEMS Medications and Allergies Home Medications Medication Instructions Recorded Confirmed Type Pravastatin Sodium [Pravachol] 80 mg PO HS 01/15/14 08/28/20 History Ibandronate Sodium [Boniva] 150 mg PO Q30D 12/11/15 08/28/20 History Aspirin [Adult Low Dose Aspirin EC] 81 mg PO HS 02/05/17 08/28/20 History Calcium Carbonate [Calcium] 1,200 mg PO DAILY 05/29/17 08/28/20 History Furosemide [Lasix] 20 mg PO DAILY #0 01/09/18 08/28/20 Rx lisinopriL 20 mg PO DAILY 09/30/19 08/28/20 History metFORMIN HCL [Glucophage] 500 mg PO AC-SUPPER 09/30/19 08/28/20 History Allergies Allergy/AdvReac Type Severity Reaction Status Date / Time No Known Allergies Allergy Verified 08/28/20 18:19 Physical Exam Vitals: Vital Signs Temp Pulse Resp BP Pulse Ox 08/30/20 04:00 97.4 F L 48 L 20 123/60 95 08/30/20 02:00 48 L 08/30/20 00:00 97.5 F L 48 L 18 111/76 96 08/29/20 20:00 98.1 F 49 L 18 120/58 100 08/29/20 18:00 52 L 16 08/29/20 15:00 52 L 18 127/56 08/29/20 11:06 97.9 F 50 L 16 124/63 95 Intake and Output 08/29/20 08/30/20 08/30/20 22:59 06:59 14:59 Intake Total 240 240 Balance 240 240 Intake: Oral 240 240 Other: Voiding Method Toilet Weight 106.5 kg PHYSICAL EXAMINATION: This is a 69-year-old female in no apparent distress at the time of my examination. VITAL SIGNS: Blood pressure 123/60, heart rate 48, respirations 20, temp 97.4F. Patient is 95 % on 1.5 L via nasal cannula. HEENT: Head is atraumatic, normocephalic. Pupils are equal, round. Sclerae anicteric. Conjunctivae are clear. Mucous membranes of the mouth are moist. Neck is supple. There is no elevated jugular venous pressure. No carotid bruit is heard. CHEST EXAMINATION: Clear reveal diffuse wheezing throughout with faint scattered crackles. Respirations even and nonlabored. HEART EXAMINATION: Heart regular, positive S1 and S2. No S3. No S4 with a systolic murmur. ABDOMEN: Soft, nontender. Bowel sounds are heard. No organomegaly noted. EXTREMITIES: 2+ peripheral pulses with no evidence of peripheral edema and no calf tenderness noted. NEUROLOGIC EXAMINATION: Patient is awake, alert and oriented x3. Results 08/30/20 06:38 08/30/20 06:38 Cardiac Enzymes 08/29/20 08/30/20 Range/Units 06:26 06:38 AST 26 24 (13-35) U/L Lactate Dehydrogenase 336 H 707 H (120-246) U/L CBC 08/30/20 Range/Units 06:38 WBC 4.0 (3.8-10.6) k/uL RBC 3.71 L (3.80-5.40) m/uL Hgb 11.8 (11.4-16.0) gm/dL Hct 34.1 (34.0-46.0) % Plt Count 244 (150-450) k/uL Comprehensive Metabolic Panel 08/29/20 08/30/20 Range/Units 06:26 06:38 Sodium 142 138 (135-145) mmol/L Potassium 4.2 4.0 (3.5-5.5) mmol/L Chloride 107 108 H (96-109) mmol/L Carbon Dioxide 27.8 26 (21.6-31.8) mmol/L BUN 15.0 24 H (9.0-27.0) mg/dL Creatinine 0.8 0.73 (0.6-1.5) mg/dL Glucose 246 H 186 H (70-110) mg/dL Calcium 8.6 L 8.8 (8.7-10.3) mg/dL AST 26 24 (13-35) U/L ALT 17 16 (8-44) U/L Alkaline Phosphatase 55 51 (41-126) U/L Total Protein 4.9 L 5.1 L (6.2-8.2) g/dL Albumin 3.50 L 2.8 L (3.80-4.90) g/dL Current Medications Generic Name Dose Route Start Last Admin Trade Name Jean-Peirreq PRN Reason Stop Dose Admin Ascorbic Acid 500 mg 08/29/20 12:45 08/30/20 09:55 Ascorbic Acid 500 Mg Tab PO 500 mg DAILY ALEKSANDR Administration Aspirin 81 mg 08/28/20 21:00 08/29/20 21:17 Aspirin 81 Mg PO 81 mg HS ALEKSANDR Administration Cholecalciferol 1,000 unit 08/29/20 12:45 08/30/20 09:55 Cholecalciferol 1,000 Unit Tab PO 1,000 unit DAILY ALEKSANDR Administration Dexamethasone 6 mg 08/29/20 09:00 08/30/20 09:55 Dexamethasone 2 Mg Tab PO 09/06/20 09:01 6 mg DAILY ALEKSANDR Administration Enoxaparin Sodium 40 mg 08/29/20 21:00 08/30/20 09:55 Enoxaparin 40 Mg/0.4 Ml Syringe SQ 40 mg Q12HR ALEKSANDR Administration Famotidine 20 mg 08/29/20 12:45 08/30/20 09:55 Famotidine 20 Mg Tab PO 20 mg DAILY ALEKSANDR Administration Furosemide 20 mg 08/29/20 09:00 08/30/20 09:55 Furosemide 20 Mg Tab PO 20 mg DAILY ALEKSANDR Administration Remdesivir 100 mg/ Sodium 250 mls @ 250 mls/hr 08/29/20 21:00 08/29/20 22:05 Chloride IVPB 09/01/20 21:59 250 mls/hr HS ALEKSANDR Administration Insulin Aspart 0 unit 08/29/20 07:30 08/30/20 06:32 Insulin Aspart (Novolog) 100 Unit/Ml Vial SQ 3 unit ACHS ALEKSANDR Administration Protocol Lisinopril 20 mg 08/29/20 09:00 08/30/20 09:55 Lisinopril 20 Mg Tab PO 20 mg DAILY ALEKSANDR Administration Melatonin 5 mg 08/29/20 21:00 08/29/20 21:17 Melatonin 5 Mg Tablet PO 5 mg HS ALEKSANDR Administration Pravastatin Sodium 80 mg 08/28/20 21:00 08/29/20 22:05 Pravastatin Sodium 80 Mg Tab PO 80 mg HS ALEKSANDR Administration Zinc Sulfate 220 mg 08/29/20 12:45 08/30/20 09:55 Zinc Sulfate 220 Mg Cap PO 220 mg DAILY ALEKSANDR Administration Intake and Output 08/29/20 08/30/20 08/30/20 22:59 06:59 14:59 Intake Total 240 240 Balance 240 240 Intake: Oral 240 240 Other: Voiding Method Toilet Weight 106.5 kg 08/30/20 06:38 08/30/20 06:38 Assessment and Plan Assessment: #1 COVID-19 with pneumonia #2 asymptomatic sinus bradycardia #3 hypertension #4 hyperlipidemia #5 diabetes mellitus Plan: From cardiology perspective obtain a 2-D echo with Doppler to assess cardiac structure and function. We will check a TSH. We will continue to follow patient closely and provide further recommendations accordingly. BILL CUTTER note has been reviewed, I agree with a documented findings and plan of care. Patient was seen and examined.
[2020-08-30 11:39] LABS: Glucose,Whole Blood 253 mg/dL (75-99)
--- NOTE | 2020-08-30 14:26 | P.PN ---
Subjective Progress Note Date: 08/30/20 Principal diagnosis: Acute covid 19 pneumonitis This is a very pleasant 69-year-old female patient with a history of diabetes mellitus, hyperlipidemia, hypertension, osteoarthritis, chronic low back pain. She had developed a 1 week history of cough, fatigue, weakness, nausea and diarrhea. She was seen at [facility] yesterday and tested positive for CoVID 19 infection. Based on her symptoms of shortness of breath and hypoxemia she was brought here to the emergency room by EMS. CT angiogram ruled out pulmonary embolism. There is extensive bilateral pulmonary infiltrates. Mild mediastinal bronchial adenopathy. Consistent with inflammatory disease. Of note, her husb and is here in the intensive care unit with CoVID 19 pneumonitis. She is seen today in consultation on the regular medical floor. White count 1.8. Hemoglobin 11.7. Lymphocytes 0.3. D-dimer 0.93. Sodium 142. Potassium 4.2. Creatinine 0.8. Glucose 246. LDH 336. C-reactive protein 15. She had been initiated on Remdesivir. This is day #2. On dexamethasone, heparin subcu for DVT prophylaxis, one unit of convalescent plasma has been ordered but not issued yet. Reevaluated today on 05/21/2021, patient is feeling better today, breathing a lot easier, hardly any cough, no wheezing, no shortness of breath, she continues to have episodes of asymptomatic bradycardia, rates in the high 40s or in the 50s, but the patient has no symptoms. Her O2 saturation is 94% on 1.5 L nasal cannula, overall the patient is doing great, and I plan to finish the full course of her remdesivir and eventually discharged the patient home. Labs from today were basically unremarkable including normal CBC and normal basic metabolic profile. LDH is down to 707 and C-reactive protein is 82.5. Objective - Vital Signs Vital signs: Vital Signs Temp 97.4 F L 08/30/20 08:00 Pulse 42 L 08/30/20 08:00 Resp 20 08/30/20 08:00 BP 135/66 08/30/20 08:00 Pulse Ox 94 L 08/30/20 08:00 Intake & Output 08/29/20 08/30/20 08/30/20 18:59 06:59 18:59 Intake Total 240 480 Balance 240 480 Weight 106.5 kg Intake: Oral 240 480 Other: Voiding Method Toilet Toilet Toilet - Exam GENERAL EXAM: Revealed 69-year-old female, obese, in no distress, on 1.5 L nasal cannula, asymptomatic HEAD: Normocephalic. Atraumatic. ENT: PERRLA, EOMI, nonicteric. Throat is clear, no neck masses, no JVD, no stridor. CHEST: No chest wall deformity. LUNGS: Very minimal basilar crackles noted otherwise negative CVS: S1 and S2 normal with no audible murmur, regular rhythm. ABDOMEN: No hepatosplenomegaly, normal bowel sounds, no guarding or rigidity. SKIN: No rashes CENTRAL NERVOUS SYSTEM: Alert and oriented 3 no gross focal neurologic deficits. EXTREMITIES: No clubbing edema or cyanosis Acute: Normal mood, affect and normal mental status examination. - Labs CBC & Chem 7: 08/30/20 06:38 08/30/20 06:38 Labs: Abnormal Lab Results - Last 24 Hours (Table) 08/29/20 08/29/20 08/30/20 Range/Units 16:37 21:01 06:23 RBC (3.80-5.40) m/uL Lymphocytes # (1.0-4.8) k/uL D-Dimer (<0.60) mg/L FEU Chloride (98-107) mmol/L BUN (7-17) mg/dL Glucose (74-99) mg/dL POC Glucose (mg/dL) 246 H 249 H 186 H (75-99) mg/dL Lactate Dehydrogenase (313-618) U/L C-Reactive Protein (<10.0) mg/L Total Protein (6.3-8.2) g/dL Albumin (3.5-5.0) g/dL 08/30/20 08/30/20 08/30/20 Range/Units 06:38 06:38 06:38 RBC 3.71 L (3.80-5.40) m/uL Lymphocytes # 0.5 L (1.0-4.8) k/uL D-Dimer 1.05 H (<0.60) mg/L FEU Chloride 108 H (98-107) mmol/L BUN 24 H (7-17) mg/dL Glucose 186 H (74-99) mg/dL POC Glucose (mg/dL) (75-99) mg/dL Lactate Dehydrogenase 707 H (313-618) U/L C-Reactive Protein 82.5 H (<10.0) mg/L Total Protein 5.1 L (6.3-8.2) g/dL Albumin 2.8 L (3.5-5.0) g/dL 08/30/20 Range/Units 11:37 RBC (3.80-5.40) m/uL Lymphocytes # (1.0-4.8) k/uL D-Dimer (<0.60) mg/L FEU Chloride (98-107) mmol/L BUN (7-17) mg/dL Glucose (74-99) mg/dL POC Glucose (mg/dL) 253 H (75-99) mg/dL Lactate Dehydrogenase (313-618) U/L C-Reactive Protein (<10.0) mg/L Total Protein (6.3-8.2) g/dL Albumin (3.5-5.0) g/dL Microbiology - Last 24 Hours (Table) 08/28/20 17:48 Blood Culture - Preliminary Blood No Growth after 24 hours Assessment and Plan Assessment: 1 Acute hypoxic respiratory failure secondary to acute CoVID 19 pneumonitis. Initiated on Remdesivir 08/28/2020 and 1 unit convalescent plasma pending 2 Elevated inflammatory markers secondary to above 3 Obesity 4 Diabetes mellitus, type II 5 Hyperlipidemia 6 Hypertension 7 Osteoarthritis Recommendation: Continue present supportive care measures. Continue Covid 19 cocktail. Continue convalescent plasma. Continue remdesivir Continue Pepcid melatonin vitamin C vitamin D and zinc. Continue to titrate FiO2 down, Possible discharge planning after the patient is done with her remdesivir Time with Patient: Less than 30
[2020-08-30 16:13] LABS: Glucose,Whole Blood 246 mg/dL (75-99)
[2020-08-30 19:56] LABS: Glucose,Whole Blood 321 mg/dL (75-99)
[2020-08-30] MEDS: REMDESIVIR 100 MG in SODIUM CHLORIDE 0.9% 250 ML IVPB SCH (22:20)
[2020-08-30] MEDS: MELATONIN 5 MG TABLET PO SCH (22:21)
[2020-08-30] MEDS: PRAVASTATIN SODIUM 80 MG TAB PO SCH (22:21)
[2020-08-30] MEDS: ASPIRIN 81 MG PO SCH (22:21)
[2020-08-31 06:12] LABS: Glucose,Whole Blood 202 mg/dL (75-99)
[2020-08-31] MEDS: INSULIN ASPART (NovoLOG) 100 UNIT/ML VIAL SQ SCH ×4 (06:25→20:57)
[2020-08-31 07:31] LABS: Basophils % (A) 0 %; Eosinophils % (A) 1 %; HCT 33.8 % (34.0-46.0); HGB 11.6 gm/dL (11.4-16.0); Lymphocytes # (A) 0.5 k/uL (1.0-4.8); Lymphocytes % (A) 11 %; MCH 31.5 pg (25.0-35.0); MCHC 34.3 g/dL (31.0-37.0); MCV 91.8 fL (80.0-100.0); Mean Platelet Volume 8.2; Monocytes # (A) 0.3 k/uL (0-1.0); Monocytes % (A) 6 %; Neutrophils # (A) 3.7 k/uL (1.3-7.7); Neutrophils % (A) 80 %; Platelet Count 239 k/uL (150-450); RBC 3.68 m/uL (3.80-5.40); RDW 12.6 % (11.5-15.5); WBC 4.6 k/uL (3.8-10.6)
[2020-08-31 07:40] LABS: Albumin 2.8 g/dL (3.5-5.0); Calcium 8.9 mg/dL (8.4-10.2); Magnesium 1.8 mg/dL (1.6-2.3); Potassium 4.2 mmol/L (3.5-5.1); Total Bilirubin 0.3 mg/dL (0.2-1.3)
[2020-08-31] MEDS: dexAMETHasone 2 MG TAB PO SCH (08:41)
[2020-08-31] MEDS: ENOXAPARIN 40 MG/0.4 ML SYRINGE SQ SCH (08:41)
[2020-08-31] MEDS: FAMOTIDINE 20 MG TAB PO SCH (08:41)
[2020-08-31] MEDS: CHOLECALCIFEROL 1,000 UNIT TAB PO SCH (08:41)
[2020-08-31] MEDS: lisinopriL 20 MG TAB PO SCH (08:41)
[2020-08-31] MEDS: ASCORBIC ACID 500 MG TAB PO SCH (08:41)
[2020-08-31] MEDS: FUROSEMIDE 20 MG TAB PO SCH (08:41)
[2020-08-31] MEDS: ZINC SULFATE 220 MG CAP PO SCH (08:41)
--- NOTE | 2020-08-31 10:10 | P.PN ---
Subjective Progress Note Date: 08/31/20 No new complaints. Pt is resting comfortably on room air. On day 11/23 of remdesivir. Objective - Vital Signs Vital signs: Vital Signs Temp 97.9 F 08/31/20 08:00 Pulse 75 08/31/20 08:00 Resp 18 08/31/20 08:00 BP 129/63 08/31/20 08:00 Pulse Ox 95 08/31/20 08:00 Intake & Output 08/30/20 08/31/20 08/31/20 18:59 06:59 18:59 Intake Total 960 Output Total 300 Balance 660 Weight 106.5 kg Intake: Oral 960 Output: Urine 300 Other: Voiding Method Toilet # Voids 1 - Exam Gen: awake, alert HEENT: normocephalic, atraumatic, good hearing acuity, moist mucous membranes Resp: good air exchange, breathing comfortably with no accessory muscle use CVS: good distal perfusion x 4, GI: soft, NTTP, ND : no SPT, no CVAT, auguste catheter not present MSK: no pitting edema, no clubbing Neuro: non-focal, moving all extremities Psych: cooperative, euthymic mood - Labs CBC & Chem 7: 08/31/20 06:57 08/31/20 06:57 Labs: Abnormal Lab Results - Last 24 Hours (Table) 08/30/20 08/30/20 08/30/20 Range/Units 11:37 16:12 19:54 RBC (3.80-5.40) m/uL Hct (34.0-46.0) % Lymphocytes # (1.0-4.8) k/uL Chloride (98-107) mmol/L BUN (7-17) mg/dL Glucose (74-99) mg/dL POC Glucose (mg/dL) 253 H 246 H 321 H (75-99) mg/dL Total Protein (6.3-8.2) g/dL Albumin (3.5-5.0) g/dL 08/31/20 08/31/20 08/31/20 Range/Units 06:10 06:57 06:57 RBC 3.68 L (3.80-5.40) m/uL Hct 33.8 L (34.0-46.0) % Lymphocytes # 0.5 L (1.0-4.8) k/uL Chloride 109 H (98-107) mmol/L BUN 29 H (7-17) mg/dL Glucose 183 H (74-99) mg/dL POC Glucose (mg/dL) 202 H (75-99) mg/dL Total Protein 5.0 L (6.3-8.2) g/dL Albumin 2.8 L (3.5-5.0) g/dL Microbiology - Last 24 Hours (Table) 08/28/20 17:48 Blood Culture - Preliminary Blood No Growth after 48 hours Assessment and Plan Assessment: #Acute hypoxemic respiratory failure #COVID 19 pneumonia -CT chest negative for acute PE -Supplemental oxygen as needed -Remdesivir day 11/23 -Decadron day 11/28 -Pepcid, melatonin, vitamin C, vitamin D, zinc -Pulmonology ordered 1 unit of convalescent plasma -Patient currently satting well on 2 L nasal cannula -Subcu Lovenox -Follow inflammatory markers #Sinus bradycardia -Likely due to remdesivir -Patient is asymptomatic -Cardiology consult #Hypertension -Resume home BP meds #Hyperlipidemia -Resume statin #Diabetes mellitus -Hold metformin. Sliding scale insulin. Titrate insulin for better control. Of note patient's also has Covid 19 pneumonia and is doing poorly in the ICU CODE STATUS:Full code DVT prophylaxis: Subcu Lovenox Anticipated length of stay > than [address]: pending clinical course
[2020-08-31 11:34] LABS: Glucose,Whole Blood 233 mg/dL (75-99)
[2020-08-31] MEDS ORDERED: HEPARIN SODIUM,PORCINE 5,000 UNIT/ML 1 ML VIAL IV ONE (12:38)
[2020-08-31] MEDS ORDERED: HEPARIN SODIUM,PORCINE 5,000 UNIT/ML 1 ML VIAL IV PRN (12:38)
[2020-08-31] MEDS ORDERED: HEPARIN SOD,PORK IN 0.45% NACL 25,000 UNIT in 0.45% NACL 1 250ML.BAG IV SCH (12:45)
[2020-08-31 13:32] LABS: Basophils % (A) 0 %; Eosinophils % (A) 0 %; HCT 37.3 % (34.0-46.0); HGB 12.8 gm/dL (11.4-16.0); Lymphocytes # (A) 0.4 k/uL (1.0-4.8); Lymphocytes % (A) 8 %; MCH 31.7 pg (25.0-35.0); MCHC 34.2 g/dL (31.0-37.0); MCV 92.5 fL (80.0-100.0); Mean Platelet Volume 7.6; Monocytes # (A) 0.2 k/uL (0-1.0); Monocytes % (A) 4 %; Neutrophils # (A) 4.6 k/uL (1.3-7.7); Neutrophils % (A) 87 %; Platelet Count 277 k/uL (150-450); RBC 4.04 m/uL (3.80-5.40); RDW 12.5 % (11.5-15.5); WBC 5.3 k/uL (3.8-10.6)
[2020-08-31 13:51] LABS: INR 1.1 (<1.2); Partial Thromboplastin Time 22.6 sec (22.0-30.0); Prothrombin Time 11.2 sec (9.0-12.0)
--- NOTE | 2020-08-31 14:06 | P.PN ---
Subjective Progress Note Date: 08/31/20 HISTORY OF PRESENT ILLNESS: Patient examined this morning at the bedside. She denies chest pain or pressure. She denies shortness of breath. Patient was in sinus bradycardia this morning with a heart rate in the high 50s. This afternoon the patient did go into atrial fibrillation with a controlled ventricular rate. The patient does not have a history of atrial fibrillation. PHYSICAL EXAM: VITAL SIGNS: Reviewed. GENERAL: Well-developed in no acute distress. NECK: Supple. No JVD or thyromegaly HEART: LUNGS: Respirations even and unlabored. Lungs diminished. EXTREMITIES: Normal range of motion. No clubbing or cyanosis. Peripheral pulses intact. No lower extremity edema ASSESSMENT: Covid19 pneumonia Asymptomatic bradycardia New-onset atrial fibrillation with controlled ventricular rate Hypertension Hyperlipidemia Diabetes mellitus PLAN: Begin IV heparin Discontinue Lovenox Check prescription coverage for Eliquis No beta lolita at this time as her rate is controlled and patient was having sinus bradycardia previously Await results of 2-D echo Further recommendations pending patient's course Nurse practitioner note has been reviewed by physician. Signing provider agrees with the documented findings, assessment, and plan of care. Objective - Vital Signs Vital signs: Vital Signs Temp 98 F 08/31/20 12:00 Pulse 78 08/31/20 12:00 Resp 18 08/31/20 12:00 BP 129/63 08/31/20 12:00 Pulse Ox 96 08/31/20 12:00 Intake & Output 08/30/20 08/31/20 08/31/20 18:59 06:59 18:59 Intake Total 960 Output Total 300 Balance 660 Weight 106.5 kg Intake: Oral 960 Output: Urine 300 Other: Voiding Method Toilet # Voids 1 - Labs CBC & Chem 7: 08/31/20 13:15 08/31/20 06:57 Labs: Abnormal Lab Results - Last 24 Hours (Table) 08/30/20 08/30/20 08/31/20 Range/Units 16:12 19:54 06:10 RBC (3.80-5.40) m/uL Hct (34.0-46.0) % Lymphocytes # (1.0-4.8) k/uL Chloride (98-107) mmol/L BUN (7-17) mg/dL Glucose (74-99) mg/dL POC Glucose (mg/dL) 246 H 321 H 202 H (75-99) mg/dL Total Protein (6.3-8.2) g/dL Albumin (3.5-5.0) g/dL 08/31/20 08/31/20 08/31/20 Range/Units 06:57 06:57 11:28 RBC 3.68 L (3.80-5.40) m/uL Hct 33.8 L (34.0-46.0) % Lymphocytes # 0.5 L (1.0-4.8) k/uL Chloride 109 H (98-107) mmol/L BUN 29 H (7-17) mg/dL Glucose 183 H (74-99) mg/dL POC Glucose (mg/dL) 233 H (75-99) mg/dL Total Protein 5.0 L (6.3-8.2) g/dL Albumin 2.8 L (3.5-5.0) g/dL 08/31/20 Range/Units 13:15 RBC (3.80-5.40) m/uL Hct (34.0-46.0) % Lymphocytes # 0.4 L (1.0-4.8) k/uL Chloride (98-107) mmol/L BUN (7-17) mg/dL Glucose (74-99) mg/dL POC Glucose (mg/dL) (75-99) mg/dL Total Protein (6.3-8.2) g/dL Albumin (3.5-5.0) g/dL Microbiology - Last 24 Hours (Table) 08/28/20 17:48 Blood Culture - Preliminary Blood No Growth after 48 hours
--- NOTE | 2020-08-31 14:30 | P.PN ---
Subjective Progress Note Date: 08/31/20 Principal diagnosis: Covid 19 pneumonitis This is a very pleasant 69-year-old female patient with a history of diabetes mellitus, hyperlipidemia, hypertension, osteoarthritis, chronic low back pain. She had developed a 1 week history of cough, fatigue, weakness, nausea and diarr hea. She was seen at [facility] yesterday and tested positive for CoVID 19 infection. Based on her symptoms of shortness of breath and hypoxemia she was brought here to the emergency room by EMS. CT angiogram ruled out pulmonary embolism. There is extensive bilateral pulmonary infiltrates. Mild mediastinal bronchial adenopathy. Consistent with inflammatory disease. Of note, her is here in the intensive care unit with CoVID 19 pneumonitis. She is seen today in consultation on the regular medical floor. White count 1.8. Hemoglobin 11.7. Lymphocytes 0.3. D-dimer 0.93. Sodium 142. Potassium 4.2. Creatinine 0.8. Glucose 246. LDH 336. C-reactive protein 15. She had been initiated on Remdesivir. This is day #2. On dexamethasone, heparin subcu for DVT prophylaxis, one unit of convalescent plasma has been ordered but not issued yet. Reevaluated today on 05/21/2021, patient is feeling better today, breathing a lot easier, hardly any cough, no wheezing, no shortness of breath, she continues to have episodes of asymptomatic bradycardia, rates in the high 40s or in the 50s, but the patient has no symptoms. Her O2 saturation is 94% on 1.5 L nasal cannula, overall the patient is doing great, and I plan to finish the full course of her remdesivir and eventually discharged the patient home. Labs from today were basically unremarkable including normal CBC and normal basic metabolic profile. LDH is down to 707 and C-reactive protein is 82.5. On 08/31/2020 patient seen in follow-up on selective care unit, she is calm and comfortable, awake and alert and oriented 3, she is currently on room air, denies any respiratory distress, breathing pre-comfortably, no cough, no chest pain, patient just went into atrial fibrillation with a controlled rate, cardiology has been consulted, and echocardiogram was ordered. From pulmonary perspective patient has been stable overnight, no worsening dyspnea, no significant cough, patient is on day 4 of Remdesivir treatment, she is on oral Decadron 6 mg daily, and heparin infusion new-onset A. fib Objective - Vital Signs Vital signs: Vital Signs Temp 98 F 08/31/20 12:00 Pulse 78 08/31/20 12:00 Resp 18 08/31/20 12:00 BP 129/63 08/31/20 12:00 Pulse Ox 96 08/31/20 12:00 Intake & Output 08/30/20 08/31/20 08/31/20 18:59 06:59 18:59 Intake Total 960 540 Output Total 300 Balance 660 540 Weight 106.5 kg Intake: Oral 960 540 Output: Urine 300 Other: Voiding Method Toilet # Voids 1 2 - Exam GENERAL EXAM: Alert, active, very pleasant, 69-year-old white female, on room air, comfortable in no apparent distress. HEAD: Normocephalic/atraumatic. EYES: Normal reaction of pupils, equal size. Conjunctiva pink, sclera white. NOSE: Clear with pink turbinates. THROAT: No erythema or exudates. NECK: No masses, no JVD, no thyroid enlargement, no adenopathy. CHEST: No chest wall deformity. Symmetrical expansion. LUNGS: Equal air entry with no crackles, wheeze, rhonchi or dullness. CVS: Irregular rate and rhythm, normal S1 and S2, no gallops, no murmurs, no rubs ABDOMEN: Soft, nontender. No hepatosplenomegaly, normal bowel sounds, no gu arding or rigidity. EXTREMITIES: No clubbing, no edema, no cyanosis, 2+ pulses and upper and lower e xtremities. MUSCULOSKELETAL: Muscle strength and tone normal. SPINE: No scoliosis or deformity SKIN: No rashes CENTRAL NERVOUS SYSTEM: Alert and oriented -3. No focal deficits, tone is normal in all 4 extremities. PSYCHIATRIC: Alert and oriented -3. Appropriate affect. Intact judgment and insight. - Labs CBC & Chem 7: 08/31/20 13:15 08/31/20 06:57 Labs: Abnormal Lab Results - Last 24 Hours (Table) 08/30/20 08/30/20 08/31/20 Range/Units 16:12 19:54 06:10 RBC (3.80-5.40) m/uL Hct (34.0-46.0) % Lymphocytes # (1.0-4.8) k/uL Chloride (98-107) mmol/L BUN (7-17) mg/dL Glucose (74-99) mg/dL POC Glucose (mg/dL) 246 H 321 H 202 H (75-99) mg/dL Total Protein (6.3-8.2) g/dL Albumin (3.5-5.0) g/dL 08/31/20 08/31/20 08/31/20 Range/Units 06:57 06:57 11:28 RBC 3.68 L (3.80-5.40) m/uL Hct 33.8 L (34.0-46.0) % Lymphocytes # 0.5 L (1.0-4.8) k/uL Chloride 109 H (98-107) mmol/L BUN 29 H (7-17) mg/dL Glucose 183 H (74-99) mg/dL POC Glucose (mg/dL) 233 H (75-99) mg/dL Total Protein 5.0 L (6.3-8.2) g/dL Albumin 2.8 L (3.5-5.0) g/dL 08/31/20 Range/Units 13:15 RBC (3.80-5.40) m/uL Hct (34.0-46.0) % Lymphocytes # 0.4 L (1.0-4.8) k/uL Chloride (98-107) mmol/L BUN (7-17) mg/dL Glucose (74-99) mg/dL POC Glucose (mg/dL) (75-99) mg/dL Total Protein (6.3-8.2) g/dL Albumin (3.5-5.0) g/dL Microbiology - Last 24 Hours (Table) 08/28/20 17:48 Blood Culture - Preliminary Blood No Growth after 48 hours Assessment and Plan Plan: Assessment: #1. Acute hypoxic respiratory failure significant acute COVID 19 pneumonitis, patient was started on Remdesivir treatment on 08/28/2020, and a woman of convalescent plasma has been given in addition to oral Decadron #2. Elevated inflammatory marker second the above #3. New onset atrial fibrillation with a controlled rate, patient has been started on heparin infusion for anticoagulation awaiting approval for Eliquis #4. Hyperlipidemia #5. Hypertension #6. Osteoarthritis #7. Diabetes mellitus type 2 Plan: Patient is doing well, she is currently on room air, today is day 4 of Remdesivir which we can stop, no worsening dyspnea, she has been stable from pulmonary perspective, no worsening dyspnea, continue anticoagulation per cardiology recommendations, continue oral Decadron. Echocardiogram is pending, continue vitamin C vitamin D and zinc and Pepcid. I performed a history & physical examination of the patient and discussed their management with my nurse practitioner, Joyce Thompson. I reviewed the nurse practitioner's note and agree with the documented findings and plan of care. Lung sounds are positive for limited crackles at the bases. The findings and the impression was discussed with the patient. I attest to the documentation by the nurse practitioner. Time with Patient: Less than 30
[2020-08-31 16:50] LABS: Glucose,Whole Blood 295 mg/dL (75-99)
--- NOTE | 2020-08-31 18:36 | ECHOF ---
Referral Reason:bradycardia MEASUREMENTS -------- HEIGHT: 157.5 cm WEIGHT: 106.1 kg BP: 142/64 RVIDd: 4.5 cm (< 3.3) IVSd: 1.6 cm (0.6 - 1.1) LVIDd: 4.5 cm (3.9 - 5.3) LVPWd: 1.2 cm (0.6 - 1.1) IVSs: 1.9 cm LVIDs: 2.7 cm LVPWs: 1.8 cm LAESV Index (A-L): 44.95 ml/m Ao Diam: 3.3 cm (2.0 - 3.7) AV Cusp: 1.2 cm (1.5 - 2.6) AV maxP.62 mmHg AV meanP.17 mmHg AR PHT: 493 ms RAP: 20.00 mmHg RVSP: 60.55 mmHg FINDINGS -------- Atrial fibrillation. This was a technically adequate study. The left ventricular size is normal. There is moderate concentric left ventricular hypertrophy. O verall left ventricular systolic function is normal with, an EF between 55 - 60 %. The right ventricle is moderate to severely enlarged. LA is severely dilated >40 ml/m2 The right atrium is mildly enlarged. Interatrial and interventricular septum intact. There is moderate aortic regurgitation. There is mild aortic stenosis present. Peak/mean gradient across the Aortic Valve is 25.62mmHg / 13.17mmHg. Ddre-sa-ocdkhmyw mitral regurgitation is present. Moderate to severe tricuspid regurgitation present. There is severe pulmonary hypertension. The r ight ventricular systolic pressure, as measured by Doppler, is 60.55mmHg. There is no pulmonic regurgitation present. The aortic root size is normal. The inferior vena cava is dilated with poor inspiratory collapse which is consistent with estimated r ight atrial pressure of 20 mmHg. There is no pericardial effusion. CONCLUSIONS -------- 1. The left ventricular size is normal. 2. There is moderate concentric left ventricular hypertrophy. 3. Overall left ventricular systolic function is normal with, an EF between 55 - 60 %. 4. The right ventricle is moderate to severely enlarged. 5. LA is severely dilated >40 ml/m2 6. The right atrium is mildly enlarged. 7. There is moderate aortic regurgitation. 8. There is mild aortic stenosis present. 9. Peak/mean gradient across the Aortic Valve is 25.62mmHg / 13.17mmHg. 10. Hvyt-to-srsjlnii mitral regurgitation is present. 11. Moderate to severe tricuspid regurgitation present. 12. There is severe pulmonary hypertension. 13. The right ventricular systolic pressure, as measured by Doppler, is 60.55mmHg. 14. The inferior vena cava is dilated with poor inspiratory collapse which is consistent with estimat ed right atrial pressure of 20 mmHg. SUPERVISOR PUMPING: Nica Doty RDCS
[2020-08-31 20:32] LABS: Glucose,Whole Blood 283 mg/dL (75-99)
[2020-08-31] MEDS: MELATONIN 5 MG TABLET PO SCH (20:57)
[2020-08-31] MEDS: APIXABAN 5 MG TAB PO SCH (20:57)
[2020-08-31] MEDS: PRAVASTATIN SODIUM 80 MG TAB PO SCH (20:57)
[2020-08-31] MEDS: ASPIRIN 81 MG PO SCH (20:57)
[2020-09-01 06:17] LABS: Glucose,Whole Blood 179 mg/dL (75-99)
[2020-09-01] MEDS: INSULIN ASPART (NovoLOG) 100 UNIT/ML VIAL SQ SCH ×2 (06:32→12:17)
[2020-09-01] MEDS: FAMOTIDINE 20 MG TAB PO SCH (08:23)
[2020-09-01] MEDS: CHOLECALCIFEROL 1,000 UNIT TAB PO SCH (08:23)
[2020-09-01] MEDS: lisinopriL 20 MG TAB PO SCH (08:23)
[2020-09-01] MEDS: ASCORBIC ACID 500 MG TAB PO SCH (08:23)
[2020-09-01] MEDS: ZINC SULFATE 220 MG CAP PO SCH (08:23)
[2020-09-01] MEDS: FUROSEMIDE 20 MG TAB PO SCH (08:23)
[2020-09-01] MEDS: dexAMETHasone 2 MG TAB PO SCH (08:24)
[2020-09-01] MEDS: APIXABAN 5 MG TAB PO SCH (08:24)
[2020-09-01 08:32] LABS: Basophils % (A) 0 %; Eosinophils % (A) 0 %; HCT 39.3 % (34.0-46.0); HGB 13.2 gm/dL (11.4-16.0); Lymphocytes # (A) 0.8 k/uL (1.0-4.8); Lymphocytes % (A) 12 %; MCH 30.8 pg (25.0-35.0); MCHC 33.5 g/dL (31.0-37.0); MCV 91.8 fL (80.0-100.0); Monocytes # (A) 0.4 k/uL (0-1.0); Monocytes % (A) 6 %; Neutrophils # (A) 4.8 k/uL (1.3-7.7); Neutrophils % (A) 79 %; Platelet Count 290 k/uL (150-450); RBC 4.28 m/uL (3.80-5.40); RDW 12.9 % (11.5-15.5); WBC 6.1 k/uL (3.8-10.6)
[2020-09-01 09:26] VITALS: RESP 20
--- NOTE | 2020-09-01 11:18 | P.DS ---
Providers Date of admission: 08/28/20 20:11 Expected date of discharge: 09/01/20 Attending physician: Dorota Turcios MD Consults: 08/28/20 20:09 Consult Physician Urgent Consulting Provider: Tarun Bhatti Consult Reason/Comments: Covid, pneumonia Do you want consulting provider notified?: Yes 08/29/20 13:56 Consult Physician Routine Consulting Provider: Ricky Brown Consult Reason/Comments: bradycardia Do you want consulting provider notified?: Yes [facility] Course: #Acute hypoxemic respiratory failure #COVID 19 pneumonia #Sinus bradycardia #Hypertension #Hyperlipidemia #Diabetes mellitus 69 year old woman with history of HTN/HLD/DM presented with acute hypoxemic respiratory failure and was found to be COVID [address] chest was negative for acute PE. Pt was started on oxygen, remdesivir and decadron. She was also given 1U of convalescent plasma. Pt completed 5 days of remdesivir and returned to room air in her baseline medical condition. She was given decadron for 5 additional days to complete as outpatient. Incidentally, she was noted to have sinus bradycardia during hospitalization, which then converted to AFib with controlled response. Cardiology was consulted and started heparin gtt prior to weaning onto eliquis. Pt to follow up with PCP as needed. I spent 35 minutes coordinating this discharge. Assessment: Gen: awake, alert HEENT: normocephalic, atraumatic, good hearing acuity, moist mucous membranes Resp: good air exchange, breathing comfortably with no accessory muscle use CVS: good distal perfusion x 4, GI: soft, NTTP, ND : no SPT, no CVAT, auguste catheter not present MSK: no pitting edema, no clubbing Neuro: non-focal, moving all extremities Psych: cooperative, euthymic mood Patient Condition at Discharge: Good Plan - Discharge Summary New Discharge Prescriptions: New Apixaban [Eliquis] 5 mg PO BID #60 tab dexAMETHasone [Hexadrol] 6 mg PO DAILY #5 tab Zinc Sulfate [Orazinc] 220 mg PO DAILY #5 cap Famotidine [Pepcid] 20 mg PO DAILY #5 tab Ascorbic Acid [Vitamin C] 500 mg PO DAILY 5 Days #5 tab Cholecalciferol [Vitamin D3 (25 Mcg = 1000 Iu)] 1,000 unit PO DAILY #5 tab Continue Pravastatin Sodium [Pravachol] 80 mg PO HS Ibandronate Sodium [Boniva] 150 mg PO Q30D Aspirin [Adult Low Dose Aspirin EC] 81 mg PO HS Calcium Carbonate [Calcium] 1,200 mg PO DAILY Furosemide [Lasix] 20 mg PO DAILY #0 lisinopriL 20 mg PO DAILY metFORMIN HCL [Glucophage] 500 mg PO AC-SUPPER Discharge Medication List Pravastatin Sodium [Pravachol] 80 mg PO HS 01/15/14 [History] Ibandronate Sodium [Boniva] 150 mg PO Q30D 12/11/15 [History] Aspirin [Adult Low Dose Aspirin EC] 81 mg PO HS 02/05/17 [History] Calcium Carbonate [Calcium] 1,200 mg PO DAILY 05/29/17 [History] Furosemide [Lasix] 20 mg PO DAILY #0 01/09/18 [Rx] lisinopriL 20 mg PO DAILY 09/30/19 [History] metFORMIN HCL [Glucophage] 500 mg PO AC-SUPPER 09/30/19 [History] Apixaban [Eliquis] 5 mg PO BID #60 tab 08/31/20 [Rx] Ascorbic Acid [Vitamin C] 500 mg PO DAILY 5 Days #5 tab 09/01/20 [Rx] Cholecalciferol [Vitamin D3 (25 Mcg = 1000 Iu)] 1,000 unit PO DAILY #5 tab 09/01/20 [Rx] Famotidine [Pepcid] 20 mg PO DAILY #5 tab 09/01/20 [Rx] Zinc Sulfate [Orazinc] 220 mg PO DAILY #5 cap 09/01/20 [Rx] dexAMETHasone [Hexadrol] 6 mg PO DAILY #5 tab 09/01/20 [Rx] Follow up Appointment(s)/Referral(s): Diana Newman MD [Primary Care Provider] - 09/03/20 2:20 pm (MONDAY) Patient Instructions/Handouts: A-fib (Atrial Fibrillation) (DC), Safe Use of Anticoagulants (DC) Activity/Diet/Wound Care/Special Instructions: Eliquis script filled at [facility] is $45 COVID-19 Stay home until symptoms have subsided for three days. Monitor your symptoms; if you get worse call your healthcare provider immediately Get rest Stay hydrated If you have a medical appointment-Notify your provider that you are COVID positive For emergencies call 911 Cover your cough and sneezes Wash your hands often Try to stay in one place to reduce exposure Avoid sharing personal items Clean surfaces that you touch.
--- NOTE | 2020-09-01 11:37 | P.PN ---
Subjective Progress Note Date: 09/01/20 Principal diagnosis: Covid 19 pneumonitis This is a very pleasant 69-year-old female patient with a history of diabetes mellitus, hyperlipidemia, hypertension, osteoarthritis, chronic low back pain. She had developed a 1 week history of cough, fatigue, weakness, nausea and diarr hea. She was seen at [facility] yesterday and tested positive for CoVID 19 infection. Based on her symptoms of shortness of breath and hypoxemia she was brought here to the emergency room by EMS. CT angiogram ruled out pulmonary embolism. There is extensive bilateral pulmonary infiltrates. Mild mediastinal bronchial adenopathy. Consistent with inflammatory disease. Of note, her is here in the intensive care unit with CoVID 19 pneumonitis. She is seen today in consultation on the regular medical floor. White count 1.8. Hemoglobin 11.7. Lymphocytes 0.3. D-dimer 0.93. Sodium 142. Potassium 4.2. Creatinine 0.8. Glucose 246. LDH 336. C-reactive protein 15. She had been initiated on Remdesivir. This is day #2. On dexamethasone, heparin subcu for DVT prophylaxis, one unit of convalescent plasma has been ordered but not issued yet. Reevaluated today on 05/21/2021, patient is feeling better today, breathing a lot easier, hardly any cough, no wheezing, no shortness of breath, she continues to have episodes of asymptomatic bradycardia, rates in the high 40s or in the 50s, but the patient has no symptoms. Her O2 saturation is 94% on 1.5 L nasal cannula, overall the patient is doing great, and I plan to finish the full course of her remdesivir and eventually discharged the patient home. Labs from today were basically unremarkable including normal CBC and normal basic metabolic profile. LDH is down to 707 and C-reactive protein is 82.5. On 08/31/2020 patient seen in follow-up on selective care unit, she is calm and comfortable, awake and alert and oriented 3, she is currently on room air, denies any respiratory distress, breathing pre-comfortably, no cough, no chest pain, patient just went into atrial fibrillation with a controlled rate, cardiology has been consulted, and echocardiogram was ordered. From pulmonary perspective patient has been stable overnight, no worsening dyspnea, no significant cough, patient is on day 4 of Remdesivir treatment, she is on oral Decadron 6 mg daily, and heparin infusion new-onset A. fib. On 09/01/2020 patient seen in follow-up on selective care unit. She is awake and alert, in no acute distress, she is on room air, pulse ox is 87%, breathing comfortable, no cough, no chest discomfort, she is tolerating intubation within the room, she was able to take a shower, no acute events overnight, no fever or chills, we stopped her Remdesivir treatment currently, she remains on oral Decadron, microbiology data has been reviewed, showing blood cultures with no growth. His labs have been reviewed, CBC was unremarkable with the exception of lymphopenia and lymphocyte count was 0.8 from pulmonary perspective patient can be considered for discharge home today. Objective - Vital Signs Vital signs: Vital Signs Temp 96.9 F L 09/01/20 08:00 Pulse 65 09/01/20 08:00 Resp 20 09/01/20 08:00 BP 126/66 09/01/20 08:00 Pulse Ox 97 09/01/20 08:00 Intake & Output 08/31/20 09/01/20 09/01/20 18:59 06:59 18:59 Intake Total 780 71.5 240 Balance 780 71.5 240 Weight 120.5 kg Intake: Intake, IV Titration 71.5 Amount Heparin Sod,Pork in 0.45% 71.5 NaCl 25,000 unit In 0.45 % NaCl 1 250ml.bag @ 9.39 UNITS/KG/HR 10 mls/hr IV .Q24H [facility] Rx#:[id number] Oral 780 240 Other: # Voids 2 1 - Exam GENERAL EXAM: Alert, active, very pleasant, 69-year-old white female, on room air, comfortable in no apparent distress. HEAD: Normocephalic/atraumatic. EYES: Normal reaction of pupils, equal size. Conjunctiva pink, sclera white. NOSE: Clear with pink turbinates. THROAT: No erythema or exudates. NECK: No masses, no JVD, no thyroid enlargement, no adenopathy. CHEST: No chest wall deformity. Symmetrical expansion. LUNGS: Equal air entry with no crackles, wheeze, rhonchi or dullness. CVS: Irregular rate and rhythm, normal S1 and S2, no gallops, no murmurs, no rubs ABDOMEN: Soft, nontender. No hepatosplenomegaly, normal bowel sounds, no guarding or rigidity. EXTREMITIES: No clubbing, no edema, no cyanosis, 2+ pulses and upper and lower extremities. MUSCULOSKELETAL: Muscle strength and tone normal. SPINE: No scoliosis or deformity SKIN: No rashes CENTRAL NERVOUS SYSTEM: Alert and oriented -3. No focal deficits, tone is normal in all 4 extremities. PSYCHIATRIC: Alert and oriented -3. Appropriate affect. Intact judgment and insight. - Labs CBC & Chem 7: 09/01/20 07:19 08/31/20 06:57 Labs: Abnormal Lab Results - Last 24 Hours (Table) 08/31/20 08/31/20 08/31/20 Range/Units 11:28 13:15 16:48 Lymphocytes # 0.4 L (1.0-4.8) k/uL APTT (22.0-30.0) sec POC Glucose (mg/dL) 233 H 295 H (75-99) mg/dL 08/31/20 08/31/20 09/01/20 Range/Units 19:50 20:31 06:16 Lymphocytes # (1.0-4.8) k/uL APTT 30.4 H (22.0-30.0) sec POC Glucose (mg/dL) 283 H 179 H (75-99) mg/dL 09/01/20 09/01/20 Range/Units 07:19 07:19 Lymphocytes # 0.8 L (1.0-4.8) k/uL APTT 20.5 L (22.0-30.0) sec POC Glucose (mg/dL) (75-99) mg/dL Microbiology - Last 24 Hours (Table) 08/28/20 17:48 Blood Culture - Preliminary Blood No Growth after 72 hours Assessment and Plan Plan: Assessment: #1. Acute hypoxic respiratory failure significant acute COVID 19 pneumonitis, patient was started on Remdesivir treatment on 08/28/2020, and convalescent plasma has been given in addition to oral Decadron. Remdesivir treatment was discontinued early yesterday on 08/31/2020 in view of improving pulmonary status #2. Elevated inflammatory marker second the above #3. New onset atrial fibrillation with a controlled rate, patient has been started on heparin infusion for anticoagulation awaiting approval for [employer] #4. Hyperlipidemia #5. Hypertension #6. Osteoarthritis #7. Diabetes mellitus type 2 Plan: Patient has remained stable, no worsening dyspnea, tolerating ambulation, she has been on room air, she was started on Eliquis for anticoagulation for new onset atrial fibrillation, modified fat stable, heart rate is controlled, from pulmonary respect she can be considered for discharge home today and she can complete a 10 day course of oral Decadron including which she received in the hospital, and she will need outpatient follow-up with Dr. Anderson in the office in 23 weeks. I performed a history & physical examination of the patient and discussed their management with my nurse practitioner, Joyce Thompson. I reviewed the nurse practitioner's note and agree with the documented findings and plan of care. Lung sounds are positive for limited crackles at the bases. The findings and th e impression was discussed with the patient. I attest to the documentation by the nurse practitioner. Time with Patient: Less than 30
[2020-09-01 11:54] LABS: Glucose,Whole Blood 171 mg/dL (75-99)
[2020-09-01 11:56] VITALS: BP 148/71; PULSE 72; TEMP 97.9
--- NOTE | 2020-09-01 14:19 | P.PN ---
Subjective Progress Note Date: 09/01/20 HISTORY OF PRESENT ILLNESS: 08/31/2020 Patient examined this morning at the bedside. She denies chest pain or pressure. She denies shortness of breath. Patient was in sinus bradycardia this morning with a heart rate in the high 50s. This afternoon the patient did go into atrial fibrillation with a controlled ventricular rate. The patient does not have a history of atrial fibrillation. 09/01/2020 Patient examined this morning at the bedside. She denies chest pain or pressur e. Denies shortness of breath. She remains in atrial fibrillation with controlled ventricular rates. Echocardiogram completed revealed ejection fraction 55-60%, moderate aortic regurgitation, mild aortic stenosis, [id number] mitral regurgitation, moderate to severe tricuspid regurgitation and severe pulmonary hypertension PHYSICAL EXAM: VITAL SIGNS: Reviewed. GENERAL: Well-developed in no acute distress. NECK: Supple. No JVD or thyromegaly HEART: Irregular rate and rhythm. S1 and S2 LUNGS: Respirations even and unlabored. Lungs diminished. EXTREMITIES: Normal range of motion. No clubbing or cyanosis. Peripheral pulses intact. No lower extremity edema ASSESSMENT: Covid19 pneumonia Asymptomatic bradycardia New-onset atrial fibrillation with controlled ventricular rate Valvular heart disease: moderate aortic regurgitation, mild aortic stenosis, [id number] mitral regurgitation, moderate to severe tricuspid regurgitation Severe pulmonary hypertension Hypertension Hyperlipidemia Diabetes mellitus PLAN: Continue Eliquis for anticoagulation No beta lolita needed at this time as patient had bradycardia during hospitalization Patient may be discharged home today from a cardiac standpoint. She is to fo llow up on an outpatient basis. Nurse practitioner note has been reviewed by physician. Signing provider agrees with the documented findings, assessment, and plan of care. Objective - Vital Signs Vital signs: Vital Signs Temp 97.9 F 09/01/20 11:55 Pulse 72 09/01/20 11:55 Resp 20 09/01/20 11:55 BP 148/71 09/01/20 11:55 Pulse Ox 97 09/01/20 11:55 Intake & Output 08/31/20 09/01/20 09/01/20 18:59 06:59 18:59 Intake Total 780 71.5 240 Balance 780 71.5 240 Weight 120.5 kg Intake: Intake, IV Titration 71.5 Amount Heparin Sod,Pork in 0.45% 71.5 NaCl 25,000 unit In 0.45 % NaCl 1 250ml.bag @ 9.39 UNITS/KG/HR 10 mls/hr IV .Q24H [facility] Rx#:[id number] Oral 780 240 Other: # Voids 2 1 - Labs CBC & Chem 7: 09/01/20 07:19 08/31/20 06:57 Labs: Abnormal Lab Results - Last 24 Hours (Table) 08/31/20 08/31/20 08/31/20 Range/Units 16:48 19:50 20:31 Lymphocytes # (1.0-4.8) k/uL APTT 30.4 H (22.0-30.0) sec POC Glucose (mg/dL) 295 H 283 H (75-99) mg/dL 09/01/20 09/01/20 09/01/20 Range/Units 06:16 07:19 07:19 Lymphocytes # 0.8 L (1.0-4.8) k/uL APTT 20.5 L (22.0-30.0) sec POC Glucose (mg/dL) 179 H (75-99) mg/dL 09/01/20 Range/Units 11:51 Lymphocytes # (1.0-4.8) k/uL APTT (22.0-30.0) sec POC Glucose (mg/dL) 171 H (75-99) mg/dL Microbiology - Last 24 Hours (Table) 08/28/20 17:48 Blood Culture - Preliminary Blood No Growth after 72 hours
== END 2020-09-01 13:33 | disposition home or self-care (01) | DRG 177 ==
LOC: EC 16:43 → 6NMEDSUR 20:11 → 3SCARD 08-29 15:09
PROVIDERS: ADMIT Internal Medicine; ATTEND Internal Medicine
PROC: XW033E5 Introduction of Remdesivir Anti-infective into Peripheral Vein, Percutaneous Approach, New Technology Group 5 (ICD-10-PCS; principal; 2020-08-28)
DX: U07.1 COVID-19 (principal); J96.01 Acute respiratory failure with hypoxia; J12.82 Pneumonia due to coronavirus disease 2019; E66.9 Obesity, unspecified; I08.3 Combined rheumatic disorders of mitral, aortic and tricuspid valves; E78.5 Hyperlipidemia, unspecified; E11.9 Type 2 diabetes mellitus without complications; I48.91 Unspecified atrial fibrillation; R00.1 Bradycardia, unspecified; I10 Essential (primary) hypertension; I27.20 Pulmonary hypertension, unspecified; Z96.653 Presence of artificial knee joint, bilateral; D72.810 Lymphocytopenia; M19.90 Unspecified osteoarthritis, unspecified site; M81.0 Age-related osteoporosis without current pathological fracture; Z79.82 Long term (current) use of aspirin; Z79.84 Long term (current) use of oral hypoglycemic drugs; Z79.899 Other long term (current) drug therapy; Z82.49 Family history of ischemic heart disease and other diseases of the circulatory system; Z87.19 Personal history of other diseases of the digestive system; Z90.89 Acquired absence of other organs; Z98.890 Other specified postprocedural states; Z80.9 Family history of malignant neoplasm, unspecified
CPT/HCPCS: 36415; 71046; 71275; 80053; 82728; 83605; 83615; 83735; 83880; 84443; 84484; 85025; 85379; 85610; 85730; 86140; 86850; 86900; 86901; 87040; 87635; 93005; 93306; 96365; 96366; 96367; 96375; 99285

== ENCOUNTER → 2021-04-09 | Outpatient (CLI) | payer MEDICARE ==
--- NOTE | 2021-04-12 10:49 | MM ---
Reason for exam: screening (asymptomatic). Last mammogram was performed 1 year and 1 month ago. History: Patient is postmenopausal. Benign stereotactic core biopsy of the left breast, June 25, 2004. Core biopsy of the left breast. Took estrogen for 3 years. Physical Findings: A clinical breast exam by your physician is recommended on an annual basis and results should be correlated with mammographic findings. MG 3D Screening Mammo W/Cad Bilateral CC and MLO view(s) were taken. CV view(s) were taken of the left breast. Prior study comparison: March 24, 2020, bilateral MG 3d screening mammo w/cad. December 26, 2018, bilateral MG 3d screening mammo w/cad. There are scattered fibroglandular densities. There is no discrete abnormality. No significant changes when compared with prior studies. ASSESSMENT: Negative, BI-RAD 1 RECOMMENDATION: Routine screening mammogram of both breasts in 1 year.
== END | disposition home or self-care (01) ==
LOC: RADMAMWWP 08:11
PROVIDERS: ATTEND Family Medicine
DX: Z12.31 Encounter for screening mammogram for malignant neoplasm of breast (principal); Z78.0 Asymptomatic menopausal state
CPT/HCPCS: 77063; 77067

== ENCOUNTER 2021-05-24 13:46 | Emergency (ER) | payer MEDICARE ==
[2021-05-24 14:06] VITALS: RESP 18
--- NOTE | 2021-05-24 15:07 | XR ---
EXAMINATION TYPE: XR knee complete RT DATE OF EXAM: 05/24/2021 CLINICAL HISTORY: Fall injury today with pain. TECHNIQUE: Three views of the right knee are obtained. COMPARISON: Right knee x-ray January 08, 2018. FINDINGS: Metallic hardware from total right knee arthroplasty is redemonstrated and stable and [employer] in position. No acute fracture or dislocation is seen. Mild/moderate diffuse subcutaneous ed gini is noted. Heterotopic calcification or ossification laterally is redemonstrated. IMPRESSION: There is no acute fracture or dislocation in the right knee prosthesis.
--- NOTE | 2021-05-24 15:09 | XR ---
EXAMINATION TYPE: PA chest and right ribs series DATE OF EXAM: 05/24/2021 COMPARISON: 08/28/2020 HISTORY: 70-year-old female fall and pain TECHNIQUE: 5 views FINDINGS: The heart is borderline to mildly enlarged. Mild interstitial prominence. No consolidation, pneumotho rax, or pleural effusion. No displaced right rib fracture seen. IMPRESSION: 1. Borderline to mild cardiomegaly. 2. Mild interstitial prominence. Correlate to exclude mild pulmonary vascular congestion. 3. No displaced right rib fracture seen.
[2021-05-24 15:20] VITALS: PULSE 60
--- NOTE | 2021-05-24 16:11 | ED ---
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 She states that she lost her footing and landed on her right side. Patient complaining of right knee and right-sided rib pain. She landed on concrete. She denies hitting her head or losing consciousness. Denies any neck or back pain. No pain in her upper extremity. Reports to right-sided chest wall pain with inspiration. No shortness of breath. Denies abdominal pain. No numbness, tingling or weakness in her leg. Denies any hip or ankle pain. No other alleviating, precipitating or modifying factors - Related Data Home Medications Medication Instructions Recorded Confirmed Pravastatin Sodium [Pravachol] 80 mg PO HS 01/15/14 08/28/20 Ibandronate Sodium [Boniva] 150 mg PO Q30D 12/11/15 08/28/20 Aspirin [Adult Low Dose Aspirin EC] 81 mg PO HS 02/05/17 08/28/20 Calcium Carbonate [Calcium] 1,200 mg PO DAILY 05/29/17 08/28/20 lisinopriL 20 mg PO DAILY 09/30/19 08/28/20 metFORMIN HCL [Glucophage] 500 mg PO AC-SUPPER 09/30/19 08/28/20 Previous Rx's Medication Instructions Recorded Furosemide [Lasix] 20 mg PO DAILY #0 01/09/18 Apixaban [Eliquis] 5 mg PO BID #60 tab 08/31/20 Ascorbic Acid [Vitamin C] 500 mg PO DAILY 5 Days #5 tab 09/01/20 Cholecalciferol [Vitamin D3 (25 1,000 unit PO DAILY #5 tab 09/01/20 Mcg = 1000 Iu)] Famotidine [Pepcid] 20 mg PO DAILY #5 tab 09/01/20 Zinc Sulfate [Orazinc] 220 mg PO DAILY #5 cap 09/01/20 dexAMETHasone ORAL [Hexadrol] 6 mg PO DAILY #5 tab 09/01/20 Allergies Allergy/AdvReac Type Severity Reaction Status Date / Time No Known Allergies Allergy Verified 08/28/20 18:19 Review of Systems ROS Statement: Those systems with pertinent positive or pertinent negative responses have been documented in the HPI. ROS Other: All systems not noted in ROS Statement are negative. Past Medical History Past Medical History: Diabetes Mellitus, Hyperlipidemia, Hypertension, Osteoarthritis (OA) Additional Past Medical History / Comment(s): Lumbar disc disease, chronic lower back pain, R sided sciatia, NIDDM type II, arthritis in multiple joints, benign colon polyps, diverticular disease, osteoporosis, bilateral leg/pedal edema, varicose veins bilateral legs, starting of cataracts bilateral eyes. History of Any Multi-Drug Resistant Organisms: None Reported Past Surgical History: Joint Replacement, Orthopedic Surgery, Tonsillectomy Additional Past Surgical History / Comment(s): Low back injections, bilateral total knee arthroplasties, bilateral feet bunionectomies, several D&Cs, colonoscopies/benign polypectomies. Past Anesthesia/Blood Transfusion Reactions: No Reported Reaction Past Psychological History: No Psychological Hx Reported Smoking Status: Never smoker Past Alcohol Use History: None Reported Past Drug Use History: None Reported - Past Family History Father Family Medical History: Congestive Heart Failure (CHF) Mother Family Medical History: Cancer Additional Family Medical History / Comment(s): UNSURE WHAT KIND OF CANCER, HEART PROBLEMS General Exam Limitations: physical limitation General appearance: alert, in no apparent distress Head exam: Present: atraumatic, normocephalic, normal inspection Eye exam: Present: normal appearance, PERRL, EOMI. Absent: scleral icterus, conjunctival injection, periorbital swelling ENT exam: Present: normal exam, mucous membranes moist Neck exam: Present: normal inspection. Absent: tenderness, meningismus, lymphadenopathy Respiratory exam: Present: normal lung sounds bilaterally, chest wall tenderness (under right breast. No step offs or deformities). Absent: respiratory distress, wheezes, rales, rhonchi, stridor Cardiovascular Exam: Present: regular rate, normal rhythm, normal heart sounds. Absent: systolic murmur, diastolic murmur, rubs, gallop, clicks GI/Abdominal exam: Present: soft, normal bowel sounds. Absent: distended, tenderness, guarding, rebound, rigid Extremities exam: Present: normal inspection, full ROM, tenderness (right lateral knee. 5/5 muscle strength bilaterally lower extremities to include hip flexors, knee extensors, ankle and great toe dorsiflexors and foot plantarflexors), normal capillary refill. Absent: pedal edema, joint swelling, calf tenderness Back exam: Present: normal inspection Neurological exam: Present: alert, oriented X3, CN II-XII intact Psychiatric exam: Present: normal affect, normal mood Skin exam: Present: warm, dry, intact, normal color. Absent: rash Course Vital Signs 05/24/21 05/24/21 05/24/21 13:59 15:19 16:30 Temperature 97.8 F 97.5 F L Pulse Rate 63 60 60 Respiratory 18 18 18 Rate Blood Pressure 148/69 145/68 152/82 O2 Sat by Pulse 99 97 97 Oximetry Medical Decision Making - Medical Decision Making Upon arrival patient's placed in room 5. There history and physical exam was performed. Patient is offered something for pain control however refused. She is sent over for a right rib x-ray and a right knee x-ray which does not demonstrate any acute fractures. Patient is able to get up and ambulate on the extremity. I discussed diagnosis, differential and treatment options. Patient will be discharged home at this time. Did offer to send her with something for pain control however she refused and states that she will take Motrin Tylenol for pain. She developed a primary care doctor in 2-4 days. Have repeat imaging pain persists in 7-10 days. Return to the emergency room for any new or worsening symptoms. Patient was discharged home ambulatory in stable condition. Disposition Clinical Impression: Fall, Right knee pain, Right-sided chest wall pain Disposition: HOME SELF-CARE Condition: Stable Instructions (If sedation given, give patient instructions): Fall Prevention (ED) Additional Instructions: Follow up with your primary care doctor in 2-4 days. Return to the emergency room for any new or worsening symptoms. We do recommend repeat imaging if your pain persists in 7-10 days. Is patient prescribed a controlled substance at d/c from ED?: No Referrals: Diana Newman MD [Primary Care Provider] - 1-2 days Time of Disposition: 16:10
[2021-05-24 16:31] VITALS: BP 152/82; TEMP 97.5
== END 2021-05-24 16:30 | disposition home or self-care (01) ==
LOC: EC 13:46
DX: M25.561 Pain in right knee (principal); R07.89 Other chest pain; I11.9 Hypertensive heart disease without heart failure; E11.36 Type 2 diabetes mellitus with diabetic cataract; E78.5 Hyperlipidemia, unspecified; M19.90 Unspecified osteoarthritis, unspecified site; M81.0 Age-related osteoporosis without current pathological fracture; Z79.01 Long term (current) use of anticoagulants; Z79.52 Long term (current) use of systemic steroids; Z79.82 Long term (current) use of aspirin; Z79.84 Long term (current) use of oral hypoglycemic drugs; Z96.653 Presence of artificial knee joint, bilateral; W01.0XXA Fall on same level from slipping, tripping and stumbling without subsequent striking against object, initial encounter
CPT/HCPCS: 99284

== ENCOUNTER 2021-09-11 17:07 | Emergency (ER) | payer MEDICARE ==
[2021-09-11] MEDS ORDERED: SODIUM CHLORIDE 0.9% 1,000 ML IV STA (17:58)
[2021-09-11] MEDS ORDERED: MORPHINE SULFATE 4 MG/ML SYRINGE IV STA (18:05)
[2021-09-11] MEDS ORDERED: ONDANSETRON 4 MG/2 ML VIAL IVP STA (18:05)
--- NOTE | 2021-09-11 18:21 | ED ---
Abdominal Pain HPI - General Chief Complaint: Abdominal Pain Stated Complaint: side/abd pain Time Seen by Provider: 09/11/21 17:55 Source: patient, RN notes reviewed Mode of arrival: ambulatory Limitations: no limitations - History of Present Illness Initial Comments: Patient presents to emergency department with right upper quadrant abdominal pain which waxes wanes in intensity. Patient has been constant, present for 4 days. Patient states that sitting up seems to exacerbate the pain. Not exacerbated by eating or drinking. No alleviating factors. Patient denies any nausea or vomiting. Appetite has been normal. No fever or chills. No problems with urination or bowel movements. No headache. No vision or hearing changes. No neck pain. No skin rashes or lesions. - Related Data Home Medications Medication Instructions Recorded Confirmed Pravastatin Sodium [Pravachol] 80 mg PO HS 01/15/14 09/11/21 Ibandronate Sodium [Boniva] 150 mg PO Q30D 12/11/15 09/11/21 Calcium Carbonate [Calcium] 1,200 mg PO DAILY 05/29/17 09/11/21 lisinopriL 20 mg PO DAILY 09/30/19 09/11/21 metFORMIN HCL [Glucophage] 500 mg PO W/SUPPER 09/30/19 09/11/21 Previous Rx's Medication Instructions Recorded Furosemide [Lasix] 20 mg PO DAILY #0 01/09/18 Apixaban [Eliquis] 5 mg PO BID #60 tab 08/31/20 Cefdinir 300 mg PO Q12HR #14 cap 09/11/21 Allergies Allergy/AdvReac Type Severity Reaction Status Date / Time No Known Allergies Allergy Verified 09/11/21 20:14 Review of Systems ROS Statement: Those systems with pertinent positive or pertinent negative responses have been documented in the HPI. ROS Other: All systems not noted in ROS Statement are negative. Past Medical History Past Medical History: Diabetes Mellitus, Hyperlipidemia, Hypertension, Osteoarthritis (OA) Additional Past Medical History / Comment(s): Lumbar disc disease, chronic lower back pain, R sided sciatia, NIDDM type II, arthritis in multiple joints, benign colon polyps, diverticular disease, osteoporosis, bilateral leg/pedal edema, varicose veins bilateral legs, starting of cataracts bilateral eyes. History of Any Multi-Drug Resistant Organisms: None Reported Past Surgical History: Joint Replacement, Orthopedic Surgery, Tonsillectomy Additional Past Surgical History / Comment(s): Low back injections, bilateral total knee arthroplasties, bilateral feet bunionectomies, several D&Cs, colonoscopies/benign polypectomies. Past Anesthesia/Blood Transfusion Reactions: No Reported Reaction Past Psychological History: No Psychological Hx Reported Smoking Status: Never smoker Past Alcohol Use History: None Reported Past Drug Use History: None Reported - Past Family History Father Family Medical History: Congestive Heart Failure (CHF) Mother Family Medical History: Cancer Additional Family Medical History / Comment(s): UNSURE WHAT KIND OF CANCER, HEART PROBLEMS General Exam - General Exam Comments Initial Comments: Obese female in mild distress. Patient does not appear to be ill or toxic. Adequate hydration. Limitations: no limitations General appearance: alert, in no apparent distress Head exam: Present: atraumatic, normocephalic, normal inspection Eye exam: Present: normal appearance, PERRL, EOMI. Absent: scleral icterus, conjunctival injection, periorbital swelling ENT exam: Present: normal exam, mucous membranes moist Neck exam: Present: normal inspection. Absent: tenderness, meningismus, lymphadenopathy Respiratory exam: Present: normal lung sounds bilaterally. Absent: respiratory distress, wheezes, rales, rhonchi, stridor Cardiovascular Exam: Present: regular rate, normal rhythm, normal heart sounds. Absent: systolic murmur, diastolic murmur, rubs, gallop, clicks GI/Abdominal exam: Present: soft, tenderness, guarding, normal bowel sounds, other (Right CVAT, mild, positive Colindres sign, right upper quadrant tenderness). Absent: distended, rebound, rigid Extremities exam: Present: normal inspection, full ROM, normal capillary refill. Absent: tenderness, pedal edema, joint swelling, calf tenderness Back exam: Present: normal inspection, full ROM, CVA tenderness (R). Absent: CVA tenderness (L), rash noted Neurological exam: Present: alert, oriented X3, CN II-XII intact Psychiatric exam: Present: normal affect, normal mood Skin exam: Present: warm, dry, intact, normal color. Absent: rash Course Vital Signs 09/11/21 09/11/21 09/11/21 17:09 18:30 20:26 Temperature 97 F L 97.9 F Pulse Rate 90 70 74 Respiratory 20 20 16 Rate Blood Pressure 158/75 141/78 126/63 O2 Sat by Pulse 98 97 98 Oximetry - Reevaluation(s) Reevaluation #1: 09/11/21 20:07 Medical record is reviewed Symptoms are improved here in the emergency department Patient is informed of results and questions answered Patient in no distress Urinalysis shows evidence of urinary tract infection. Ceftriaxone ordered. We'll obtain a noncontrast CT of abdomen and pelvis to rule out nephrolithiasis/hydronephrosis/pyelonephritis Reevaluation #2: 09/11/21 21:02 Medical record is reviewed Symptoms are improved here in the emergency department Patient is informed of results and questions answered Patient in no distress Medical Decision Making - Medical Decision Making Differential includes biliary colic versus ureteral colic. Possible cho lecystitis. Less likely pancreatitis or cardiopulmonary. Patient's presenting clinical picture not consistent with cardiopulmonary disease. Unlikely be gynecological related. No lower abdominal tenderness. Other intra-abdominal inflammatory versus infectious etiology is possible. Abdominal/cardiac workup, playful x-rays, gallbladder ultrasound, pain medication, antiemetics. Patient computed tomography scan shows no evidence of acute pathology. Patient pretreated for urinary tract infection with cefdinir Patient was told to return to the ER for any signs or symptoms worsen. Told to return immediately if any other problems arise. All questions answered. Treatment plan discussed. Patient in agreement The case was discussed in detail with ED attending physician. Presentation, findings, treatment plan discussed in detail. Supervising physicians Dr. Choi - Lab Data Result diagrams: 09/11/21 18:21 09/11/21 18:21 Lab Results 09/11/21 09/11/21 09/11/21 Range/Units 18:21 18:21 18:21 WBC 6.5 (3.8-10.6) k/uL RBC 4.71 (3.80-5.40) m/uL Hgb 14.2 (11.4-16.0) gm/dL Hct 43.0 (34.0-46.0) % MCV 91.4 (80.0-100.0) fL MCH 30.2 (25.0-35.0) pg MCHC 33.0 (31.0-37.0) g/dL RDW 13.8 (11.5-15.5) % Plt Count 176 (150-450) k/uL MPV 7.8 Neutrophils % 72 % Lymphocytes % 18 % Monocytes % 7 % Eosinophils % 2 % Basophils % 1 % Neutrophils # 4.7 (1.3-7.7) k/uL Lymphocytes # 1.2 (1.0-4.8) k/uL Monocytes # 0.5 (0-1.0) k/uL Eosinophils # 0.1 (0-0.7) k/uL Basophils # 0.0 (0-0.2) k/uL PT 11.0 (9.0-12.0) sec INR 1.0 (<1.2) Sodium (137-145) mmol/L Potassium (3.5-5.1) mmol/L Chloride (98-107) mmol/L Carbon Dioxide (22-30) mmol/L Anion Gap mmol/L BUN (7-17) mg/dL Creatinine (0.52-1.04) mg/dL Est GFR (CKD-EPI)AfAm (>60 ml/min/1.73 sqM) Est GFR (CKD-EPI)NonAf (>60 ml/min/1.73 sqM) Glucose (74-99) mg/dL Plasma Lactic Acid Oswaldo (0.7-2.0) mmol/L Calcium (8.4-10.2) mg/dL Total Bilirubin (0.2-1.3) mg/dL AST (14-36) U/L ALT (4-34) U/L Alkaline Phosphatase (38-126) U/L Troponin I (0.000-0.034) ng/mL Total Protein (6.3-8.2) g/dL Albumin (3.5-5.0) g/dL Amylase (30-110) U/L Lipase (23-300) U/L Urine Color Yellow Urine Appearance Cloudy H (Clear) Urine pH 5.5 (5.0-8.0) Ur Specific [place] 1.021 (1.001-1.035) Urine Protein Trace H (Negative) Urine Glucose (UA) Negative (Negative) Urine Ketones Negative (Negative) Urine Blood Negative (Negative) Urine Nitrite Negative (Negative) Urine Bilirubin Negative (Negative) Urine Urobilinogen <2.0 (<2.0) mg/dL Ur Leukocyte Esterase Large H (Negative) Urine RBC 5 (0-5) /hpf Urine WBC >182 H (0-5) /hpf Urine WBC Clumps Few H (None) /hpf Ur Squamous Epith Cells 1 (0-4) /hpf Urine Bacteria Occasional H (None) /hpf Hyaline Casts 17 H (0-2) /lpf Urine Mucus Rare H (None) /hpf 09/11/21 09/11/21 09/11/21 Range/Units 18:21 18:21 18:21 WBC (3.8-10.6) k/uL RBC (3.80-5.40) m/uL Hgb (11.4-16.0) gm/dL Hct (34.0-46.0) % MCV (80.0-100.0) fL MCH (25.0-35.0) pg MCHC (31.0-37.0) g/dL RDW (11.5-15.5) % Plt Count (150-450) k/uL MPV Neutrophils % % Lymphocytes % % Monocytes % % Eosinophils % % Basophils % % Neutrophils # (1.3-7.7) k/uL Lymphocytes # (1.0-4.8) k/uL Monocytes # (0-1.0) k/uL Eosinophils # (0-0.7) k/uL Basophils # (0-0.2) k/uL PT (9.0-12.0) sec INR (<1.2) Sodium 140 (137-145) mmol/L Potassium 4.7 (3.5-5.1) mmol/L Chloride 106 (98-107) mmol/L Carbon Dioxide 29 (22-30) mmol/L Anion Gap 5 mmol/L BUN 21 H (7-17) mg/dL Creatinine 0.89 (0.52-1.04) mg/dL Est GFR (CKD-EPI)AfAm 75 (>60 ml/min/1.73 sqM) Est GFR (CKD-EPI)NonAf 65 (>60 ml/min/1.73 sqM) Glucose 142 H (74-99) mg/dL Plasma Lactic Acid Oswaldo 1.4 (0.7-2.0) mmol/L Calcium 9.9 (8.4-10.2) mg/dL Total Bilirubin 1.0 (0.2-1.3) mg/dL AST 31 (14-36) U/L ALT 13 (4-34) U/L Alkaline Phosphatase 67 (38-126) U/L Troponin I 0.012 (0.000-0.034) ng/mL Total Protein 6.7 (6.3-8.2) g/dL Albumin 4.2 (3.5-5.0) g/dL Amylase 71 (30-110) U/L Lipase 133 (23-300) U/L Urine Color Urine Appearance (Clear) Urine pH (5.0-8.0) Ur Specific [place] (1.001-1.035) Urine Protein (Negative) Urine Glucose (UA) (Negative) Urine Ketones (Negative) Urine Blood (Negative) Urine Nitrite (Negative) Urine Bilirubin (Negative) Urine Urobilinogen (<2.0) mg/dL Ur Leukocyte Esterase (Negative) Urine RBC (0-5) /hpf Urine WBC (0-5) /hpf Urine WBC Clumps (None) /hpf Ur Squamous Epith Cells (0-4) /hpf Urine Bacteria (None) /hpf Hyaline Casts (0-2) /lpf Urine Mucus (None) /hpf - EKG Data EKG Comments: EKG done at 1830 ED attending physician Castrejon sinus rhythm with frequent PACs. Nonspecific ST abnormality. Left axis deviation, no evidence of ST elevation. When compared to the previous study from August 2020, patient now has PACs. Normal sinus rhythm otherwise. Normal intervals, rate of 73 Disposition Clinical Impression: Urinary tract infection, Acute right flank pain Disposition: HOME SELF-CARE Condition: Good Instructions (If sedation given, give patient instructions): Urinary Tract Infection in Women (ED) Additional Instructions: Take antibiotics as directed. Follow-up with your regular physician as directed. Follow-up with your regular physician as directed. Return to the ER immediately if any symptoms worsen, new symptoms arise, or any other problems develop. Take Tylenol for discomfort. Increase hydration, mixing cranberry juice if tolerated. Prescriptions: Cefdinir 300 mg PO Q12HR #14 cap Is patient prescribed a controlled substance at d/c from ED?: No Referrals: Joi Lang NPC [Primary Care Provider] - 09/13/21 (Call at 8 AM Monday morning for follow-up appointment.) Time of Disposition: 21:04
[2021-09-11 18:37] LABS: Basophils % (A) 1 %; Eosinophils # (A) 0.1 k/uL (0-0.7); Eosinophils % (A) 2 %; HGB 14.2 gm/dL (11.4-16.0); Lymphocytes # (A) 1.2 k/uL (1.0-4.8); Lymphocytes % (A) 18 %; MCH 30.2 pg (25.0-35.0); MCV 91.4 fL (80.0-100.0); Mean Platelet Volume 7.8; Monocytes # (A) 0.5 k/uL (0-1.0); Monocytes % (A) 7 %; Neutrophils # (A) 4.7 k/uL (1.3-7.7); Neutrophils % (A) 72 %; Platelet Count 176 k/uL (150-450); RBC 4.71 m/uL (3.80-5.40); RDW 13.8 % (11.5-15.5); WBC 6.5 k/uL (3.8-10.6)
[2021-09-11 18:56] LABS: Albumin 4.2 g/dL (3.5-5.0); Calcium 9.9 mg/dL (8.4-10.2); Total Protein 6.7 g/dL (6.3-8.2)
[2021-09-11 19:06] LABS: Appearance,Urine Cloudy (Clear); Bacteria,Urine Occasional /hpf; Bilirubin,Urine Negative (Negative); Blood,Urine Negative (Negative); Color,Urine Yellow; Glucose,Urine (UA) Negative (Negative); Hyaline Casts,Urine 17 /lpf (0-2); Ketones,Urine Negative (Negative); Leukocyte Esterase,Urine Large (Negative); Mucus,Urine Rare /hpf; Nitrite,Urine Negative (Negative); PH, Urine 5.5 (5.0-8.0); Protein,Urine Trace (Negative); RBC,Urine 5 /hpf (0-5); Specific Gravity,Urine 1.021 (1.001-1.035); Squamous Epithelial Cell,Urine 1 /hpf (0-4); Urobilinogen,Urine <2.0 mg/dL (<2.0); WBC,Urine >182 /hpf (0-5)
[2021-09-11 19:09] LABS: Potassium 4.7 mmol/L (3.5-5.1)
--- NOTE | 2021-09-11 19:11 | XR ---
EXAMINATION TYPE: XR abdomen acute w cxr DATE OF EXAM: 09/11/2021 COMPARISON: NONE HISTORY: Abdominal pain TECHNIQUE: 4 views FINDINGS: There is no sign of intestinal obstruction or pneumoperitoneum. Fecal pattern is normal. Th ere is mild lumbar dextroscoliosis. There is no heart failure. There is some mild linear density left lung base. There are no calcifications over the kidneys. There is large calcified uterine fibroid. IMPRESSION: Nonacute abdomen. Minimal linear infiltrate or atelectasis left lung base. Heart and lung s not changed compared to 05/24/2021.
--- NOTE | 2021-09-11 19:30 | US ---
EXAMINATION TYPE: US gallbladder DATE OF EXAM: 09/11/2021 COMPARISON: NONE CLINICAL HISTORY: Right upper quadrant abdominal pain. RUQ pain for the past 4 days with nausea durin g painful episodes. EXAM MEASUREMENTS: Liver Length: 20.2 cm Gallbladder Wall: 0.3 cm CBD: 0.4 cm Right Kidney: 11.5 x 5.0 x 4.3 cm Pancreas: Obscured by bowel gas Liver: wnl Gallbladder: No stones seen Evidence for sonographic Colindres's sign: No CBD: wnl Right Kidney: No hydronephrosis or masses seen Liver appears enlarged. IMPRESSION: Hepatomegaly. No gallstones or dilated ducts. No adverse change compared to old exam
[2021-09-11] MEDS ORDERED: cefTRIAXone IN SWFI 1,000 MG/10 ML SYRINGE IVP STA (20:05)
[2021-09-11] MEDS ORDERED: KETOROLAC 15 MG/ML 1 ML VIAL IVP STA (20:06)
--- NOTE | 2021-09-11 20:54 | CT ---
EXAMINATION TYPE: CT abdomen pelvis wo con DATE OF EXAM: 09/11/2021 COMPARISON: September 29, 2019 HISTORY: PAIN CT DLP: 1750 mGycm Automated exposure control for dose reduction was used. Images obtained from the diaphragm to the floor the pelvis with no contrast. Lung bases are clear of consolidation. There is no pleural effusion. Heart size is top normal. There is no pericardial effusion. There is small hiatal hernia. Stomach is otherwise intact. Liver and sple en are intact. Liver measures 22 cm. Spleen measures 13.5 cm. The bile ducts are not dilated. Gallbla dder is contracted. There is no evidence of pancreatic mass. There is no adrenal mass. Kidneys have normal size. There is no hydronephrosis. Ureters are not dilat ed. There is no retroperitoneal adenopathy. Bladder distends smoothly. There is left side 4.5 cm calc ified uterine fibroid. There are multiple sigmoid diverticula. There is no inguinal hernia. There is no free fluid in the pelvis. There is no evidence of diverticulitis. There is a 3 cm fat-containing u mbilical hernia. Appendix is medial and appears normal. There are cysts diverticula also in the trans verse colon and ascending colon. The lumbar vertebra show a degenerative mild L5-S1 spondylolisthesis. There is no compression fractur e. There is multilevel lumbar disc space narrowing. The hip joints are intact. Bony pelvis appears in tact. There is minor acetabular spurring. IMPRESSION: Diffuse colonic diverticulosis without diverticulitis. No acute abnormality in the abdomen and pelvis . No significant change compared to old exam. Multilevel lumbar spondylotic changes. Hepatosplenomegaly unchanged.
[2021-09-11 21:32] VITALS: BP 129/67; PULSE 93; RESP 20; TEMP 98
== END 2021-09-11 21:32 | disposition home or self-care (01) ==
LOC: EC 17:07
DX: N39.0 Urinary tract infection, site not specified (principal); E11.9 Type 2 diabetes mellitus without complications; I10 Essential (primary) hypertension; E78.5 Hyperlipidemia, unspecified; M19.90 Unspecified osteoarthritis, unspecified site; Z79.84 Long term (current) use of oral hypoglycemic drugs; Z79.01 Long term (current) use of anticoagulants; Z79.899 Other long term (current) drug therapy
CPT/HCPCS: 36415; 93005; 80053; 82150; 83605; 83690; 84484; 85025; 85610; 81001; 87086; 87077; 87186; 74022; 76705; 74176; 99284; 96374; 96375 ×3; J2270; J2405; J0696; J1885

== ENCOUNTER → 2022-04-20 | Outpatient (CLI) | payer MEDICARE ==
--- NOTE | 2022-04-20 11:18 | MM ---
Reason for Exam: Screening (asymptomatic). Last screening mammogram was performed 12 month(s) ago. Patient History: Menarche at age 9. First Full-Term at age 18. Postmenopausal. Patient has history of breast feeding. Patient used Estrogen for 3 years. Core Biopsy on the Left side. 06/25/2004, Benign Stereotactic Core Biopsy on the left side. Risk Values: Yadira 5 year model risk: 2.6%. NCI Lifetime model risk: 6.3%. Prior Study Comparison: 12/26/2018 Bilateral Screening Mammogram, [facility]. 03/24/2020 Bilateral Screening Mammogram, [facility]. 04/09/2021 Bilateral Screening Mammogram, [facility]. Tissue Density: There are scattered fibroglandular densities. Findings: Analyzed By CAD. Vascular calcification is present bilaterally. A core markers within the left breast. There are a few scattered benign-appearing round calcifications bilaterally. No suspicious groups of microcalcifications, spiculated or lobular masses, architectural distortion or other secondary signs of malignancy are mammographically apparent. Overall Assessment: Benign, BI-RAD 2 Management: Screening Mammogram of both breasts in 1 year. A negative mammogram report should not preclude additional follow up of suspicious palpable abnormalities. Patient should continue monthly self breast exam. A clinical breast exam by your physician is recommended on an annual basis and results should be correlated with mammographic findings. Electronically signed and approved by: Dexter Gonzalez D.O. Radiologis
--- NOTE | 2022-04-20 12:19 | BD ---
EXAMINATION TYPE: Axial Bone Density DATE OF EXAM: 04/20/2022 COMPARISON: 06-11-15 CLINICAL HISTORY: 71 years year old Female. ICD-10 CODE: Z13.820 OSTEOPOROSIS,Z78.0 POST MENOPAUSAL Height: 61 IN Weight: 261 FRAX RISK QUESTIONS: Secondary Osteoporosis: RISK FACTORS HISTORY OF: Family History of Osteoporosis: YES Active: FAIR Postmenopausal woman: YES Lost more than 2 inches in height since high school: YES MEDICATIONS: Additional Medications: CHOLESTEROL MED, BP MED, METFORMIN, BLOOD THINNER, CALCIUM Additional History: EXAM MEASUREMENTS: Bone mineral densitometry was performed using the [employer]. Bone mineral density as measured about the Lumbar spine is: ----- L1-L4(G/cm2): 1.494 T Score Values are as follows: ----- L1: 0.7 ----- L2: 2.3 ----- L3: 3.1 ----- L4: 3.9 ----- L1-L4: 2.6 Bone mineral density has: Increased 4.9% since study of: 06-11-15 Bone mineral density about the R hip (g/cm2): 0.988 Bone mineral density about the L hip (g/cm2): 1.007 T Score values are as follows: -----R Neck: 0.3 -----L Neck: -0.6 -----R Total: -0.2 -----L Total: 0.0 Bone mineral density has: Increased 2.0% since study of: 06-11-15 FRAX%s: The graph provided illustrates a 7.0% chance for a major osteoporotic fx and a 0.6% chance fo r the hips probability for fx in 10 years time. IMPRESSION: Normal (Values between +1 and -1 indicate normal bone mass). Consider repeating this study in 5 year s or sooner if there is some new clinical indication. NOTE: T-SCORE=SD OF THE YOUNG ADULT MEAN.
== END | disposition home or self-care (01) ==
LOC: RADMAMWWP 07:09
PROVIDERS: ATTEND Internal Medicine
DX: Z12.31 Encounter for screening mammogram for malignant neoplasm of breast (principal); Z13.820 Encounter for screening for osteoporosis; Z78.0 Asymptomatic menopausal state
CPT/HCPCS: 77063; 77067; 77080

== ENCOUNTER → 2022-07-22 | Outpatient (CLI) | payer MEDICARE ==
--- NOTE | 2022-07-22 11:45 | US ---
EXAMINATION TYPE: US liver DATE OF EXAM: 07/22/2022 COMPARISON: CT, US CLINICAL HISTORY: E83.119 HEMOCHROMATOSIS, UNSPECIFIED. Hemochromatosis. TECHNIQUE: Multiple sonographic images of the right upper quadrant are obtained. FINDINGS: EXAM MEASUREMENTS: Liver Length: 20.1 cm Gallbladder Wall: 0.22 cm CBD: Obscured Right Kidney: 10.5 x 4.7 x 3.8 cm CONTENT DIRECTOR NOTES: Limited due to patient body habitus and overlying bowel gas. Pancreas: Not well seen. Liver: Appears enlarged and coarse, measurement was limited. Increased echogenicity. Gallbladder: Appears anechoic. Evidence for sonographic Colindres's sign: No CBD: Obscured Right Kidney: No hydronephrosis or masses seen IMPRESSION: 1. Hepatomegaly with mild fatty infiltration
== END | disposition home or self-care (01) ==
LOC: RADUSWWP 09:58
PROVIDERS: ATTEND Internal Medicine Hematology & Oncology
DX: K76.0 Fatty (change of) liver, not elsewhere classified (principal); R16.0 Hepatomegaly, not elsewhere classified; E83.119 Hemochromatosis, unspecified
CPT/HCPCS: 76705

== ENCOUNTER → 2022-11-09 | Outpatient (CLI) | payer MEDICARE ==
--- NOTE | 2022-11-10 07:48 | US ---
EXAMINATION TYPE: US kidneys/renal and bladder DATE OF EXAM: 11/09/2022 COMPARISON: 07/22/2022 CLINICAL HISTORY: 71-year-old female N18.31 CHRONIC KIDNEY DISEASE, STAGE 3A. Abn labs EXAM MEASUREMENTS: Right Kidney: 10.1 x 5.0 x 3.9 cm Left Kidney: 10.2 x 4.2 x 4.8 cm Right Kidney: No hydronephrosis or masses seen Left Kidney: 1.4 x 1.1 x 1.2cm upper pole cortical cyst. No hydronephrosis. Bladder: Underdistended limiting its evaluation. IMPRESSION: No hydronephrosis. A 1.4 cm benign cortical cyst upper pole left kidney. Underdistention of the bladd er limits its evaluation.
== END | disposition home or self-care (01) ==
LOC: RADUSWWP 16:11
PROVIDERS: ATTEND Internal Medicine
DX: N18.31 Chronic kidney disease, stage 3a (principal); N28.1 Cyst of kidney, acquired
CPT/HCPCS: 76770

== ENCOUNTER → 2023-03-28 | Outpatient (CLI) | payer MEDICARE ==
[2023-03-28 15:33] LABS: HCT 37.9 % (37.2-46.3); HGB 12.2 d/dL (12.0-15.0); MCHC 32.2 d/dL (32.0-37.0); Mean Platelet Volume 10.8 FL (9.5-12.2); NRBC Per 100 WBC 0 X 10*3/uL (0.00-0.01); Platelet Count 184 X 10*3/uL (140-440); RBC 4.21 X 10*6/uL (4.10-5.20); RDW 14.3 % (11.5-14.5); WBC 3.88 X 10*3/uL (4.50-10.00)
[2023-03-28 15:43] LABS: Blood Urea Nitrogen 20.8 mg/dL (9.0-27.0); Carbon Dioxide 27.2 mmol/L (21.6-31.8); Chloride 106 mmol/L (96-109); Potassium 5.1 mmol/L (3.5-5.5); Sodium 142 mmol/L (135-145)
== END | disposition home or self-care (01) ==
LOC: LABPAT 08:25
PROVIDERS: ATTEND Internal Medicine Interventional Cardiology
DX: Z01.812 Encounter for preprocedural laboratory examination (principal); R94.39 Abnormal result of other cardiovascular function study
CPT/HCPCS: 80051; 82565; 84520; 85027

== ENCOUNTER 2023-04-03 05:44 | Day surgery (SDC) | payer MEDICARE ==
[2023-03-27 15:24] VITALS: BMI 46.9
[2023-04-03] MEDS ORDERED: ALPRAZolam 0.5 MG TAB PO PRN (06:14)
[2023-04-03] MEDS ORDERED: ASPIRIN 325 MG TAB PO STA (06:14)
[2023-04-03] MEDS ORDERED: NITROGLYCERIN SL TABS 0.4 MG TAB SUBLINGUAL PRN (06:14)
[2023-04-03] MEDS ORDERED: SODIUM CHLORIDE 0.9% 1,000 ML in EMPTY BAG 1 BAG IV SCH (06:14)
[2023-04-03] MEDS ORDERED: ALPRAZolam 0.25 MG TAB PO PRN (06:14)
[2023-04-03 06:26] VITALS: RESP 18; TEMP 97.4
[2023-04-03 06:31] LABS: Glucose,Whole Blood 122 mg/dL (70-110)
[2023-04-03] MEDS ORDERED: VERAPAMIL 2.5 MG/ML 2 ML AMP ONE (07:09)
[2023-04-03] MEDS ORDERED: fentaNYL (PF) 50 MCG/ML 2 ML AMP ONE (07:30)
[2023-04-03] MEDS ORDERED: fentaNYL (PF) 50 MCG/ML 2 ML AMP IVP ONE (07:30)
[2023-04-03] MEDS ORDERED: LIDOCAINE 1% INJ 10MG/ML (20 ML MDV) SQ ONE (07:33)
[2023-04-03] MEDS ORDERED: HEPARIN SODIUM 1,000 UN/ML (10ML VL) ONE (07:34)
[2023-04-03] MEDS ORDERED: VERAPAMIL SYRINGE (5 MG/10 ML) INTRAARTER ONE (07:36)
[2023-04-03] MEDS ORDERED: IOPAMIDOL-370 100ML BTL INJ ONE (07:45)
[2023-04-03] MEDS ORDERED: RX INFO: IV CONTRAST WAS GIVEN 1 EACH MISC MISCELLANE PRN (07:58)
[2023-04-03] MEDS ORDERED: SODIUM CHLORIDE 0.9% 1,000 ML IV SCH (08:00)
--- NOTE | 2023-04-03 08:04 | P.CARDCATH ---
Date of Procedure: 04/03/23 Description of Procedure: Cardiac Catheterization: The patient is a 72-year-old female with a known history of hypertension, hyperlipidemia, diabetes mellitus who has been complaining of progressive dyspnea, had an abnormal MPI. Recommendations were made regarding cardiac catheterization, the risks and the complications were discussed with the patient who is in full understanding and agreement. Procedure Description: Patient was brought to medical laboratory technician in fasting semi-sedated state after receiving Fentanyl and Benadryl achieiving moderate conscious sedated state. Using Xylocaine Anesthesia and Seldinger technique, a 6-Vincentian sheath was introduced in the right radial artery . Subsequently, selective coronary angiography was performed using a 5-Vincentian 3.5 bend Tatum catheter. Multiple views of the coronary artery including hemiaxial views were obtained. The 5-Vincentian pigtail catheter was used to cross the aortic valve and LVEDP was calculated. Following that, catheter and sheath were removed. Hemostasis was obtained with deployment of TR band . There was no immediate complication. Patient was returned to room in stable condition. Of note, the patient received a total of 5000 units of intravenous heparin as well as intra-arterial verapamil. Findings: Left main: This is a large size vessel, bifurcating into LAD and left circumflex, left main has no high-grade stenosis LAD: This is a large size vessel reaching the apex, tapers down in the distal third. The LAD has no obstructive disease Left circumflex: This is a nondominant vessel giving rise to a large obtuse marginal branch distally. The first obtuse marginal branch proximally is moderate in caliber. The left circumflex has no obstructive disease RCA: This is a large dominant vessel, bifurcating distally to PDA and PLV, the right coronary artery and its branches have no obstructive disease. Left Ventriculogram: Not performed Hemodynamics: There was no gradient across the aortic valve , LVEDP was 16-20 mmHg Conclusion: 1. Normal coronary anatomy 2. Right dominance Recommendations: The patient will continue present medical regimen with aggressive coronary risks modifications. The findings and the recommendations were discussed with the patient and the family and they were in full understanding and agreement. Duration of sedation is 14 minutes.
[2023-04-03] MEDS ORDERED: lisinopriL 20 MG TAB PO SCH (09:00)
[2023-04-03] MEDS ORDERED: SODIUM CHLORIDE 0.9% 500 ML 500 ML IV ONE (11:00)
[2023-04-03 11:20] VITALS: BP 133/61; PULSE 64
[2023-04-03] MEDS ORDERED: PRAVASTATIN SODIUM 80 MG TAB PO SCH (21:00)
== END 2023-04-03 11:44 | disposition home or self-care (01) ==
LOC: CATHCVL 05:44
PROVIDERS: ATTEND Internal Medicine Interventional Cardiology
DX: I25.10 Atherosclerotic heart disease of native coronary artery without angina pectoris (principal); I10 Essential (primary) hypertension; E78.5 Hyperlipidemia, unspecified; E11.9 Type 2 diabetes mellitus without complications; Z79.899 Other long term (current) drug therapy
CPT/HCPCS: 93458; C1769 ×2; C1894; J2001; J3010; J1644; Q9967

== ENCOUNTER → 2023-04-21 | Outpatient (CLI) | payer MEDICARE ==
--- NOTE | 2023-04-25 08:35 | MM ---
Reason for Exam: Screening (asymptomatic). Last mammogram was performed 1 year(s) and 1 month(s) ago. Patient History: Menarche at age 9. First Full-Term at age 18. Postmenopausal. Patient has history of breast feeding. Patient used Estrogen for 3 years. Core Biopsy on the Left side. 06/25/2004, Benign Stereotactic Core Biopsy on the left side. Risk Values: Yadira 5 year model risk: 2.6%. NCI Lifetime model risk: 6.0%. Prior Study Comparison: 03/24/2020 Bilateral Screening Mammogram, [facility]. 04/09/2021 Bilateral Screening Mammogram, [facility]. 04/20/2022 Bilateral MG 3D screening mammo w/cad, [facility]. Tissue Density: There are scattered fibroglandular densities. Findings: Analyzed By CAD. Left breast biopsy clip. There is no suspicious group of microcalcifications or new suspicious mass. Overall Assessment: Negative, BI-RAD 1 Management: Screening Mammogram of both breasts in [address] [facility] will attempt to contact patient to return for supplemental views and ultrasound if indicated. Patient should continue monthly self-breast exams. A clinical breast exam by your physician is recommended on an annual basis. This exam should not preclude additional follow-up of suspicious palpable abnormalities. Note on Yadira scores and lifetime risk: 1. A Yadira score greater than 3% is considered moderate risk. If this is the case, consider specialist referral to assess eligibility for a risk reducing agent. 2. If overall lifetime risk for the development of breast cancer is 20% or higher, the patient may qualify for future screening with alternating mammogram and breast MRI. Electronically signed and approved by: Tank Nguyen DO
== END | disposition home or self-care (01) ==
LOC: RADMAMWWP 07:58
PROVIDERS: ATTEND Internal Medicine
DX: Z12.31 Encounter for screening mammogram for malignant neoplasm of breast (principal); Z78.0 Asymptomatic menopausal state
CPT/HCPCS: 77063; 77067

== ENCOUNTER → 2023-08-16 | Outpatient (CLI) | payer MEDICARE ==
--- NOTE | 2023-08-16 10:32 | US ---
EXAMINATION TYPE: US liver DATE OF EXAM: 08/16/2023 COMPARISON: 07/22/22 CLINICAL INDICATION: Female, 72 years old with history of E83.119 HEMOCHROMATOSIS, UNSPECIFIED; TECHNIQUE: Multiple sonographic images of the right upper quadrant are obtained. FINDINGS: EXAM MEASUREMENTS: Liver Length: 19.4 cm Gallbladder Wall: 0.19 cm CBD: 0.26 cm Right Kidney: 10.4 x 4.4 x 4.4 cm GASOLINE SERVICE ATTENDANT NOTES:Suboptimal study due to patient body habitus Pancreas: Obscured by bowel gas Liver: Hepatomegaly no suspicious masses dilated ducts or cystic structures. Gallbladder: wnl Evidence for sonographic Colindres's sign: No CBD: wnl Right Kidney: wnl IMPRESSION: 1. No evidence for acute process. 2. Hepatomegaly.
== END | disposition home or self-care (01) ==
LOC: RADUSWWP 08:50
PROVIDERS: ATTEND Internal Medicine Hematology & Oncology
DX: R16.2 Hepatomegaly with splenomegaly, not elsewhere classified (principal); E83.119 Hemochromatosis, unspecified; E11.9 Type 2 diabetes mellitus without complications; Z71.3 Dietary counseling and surveillance
CPT/HCPCS: 76705

== ENCOUNTER → 2024-01-03 | Outpatient (CLI) | payer MEDICARE ==
[2024-01-03 14:52] LABS: ALT 13 U/L (8-44); AST 16 U/L (13-35); Uric Acid 8.7 mg/dL (2.9-7.7)
== END | disposition home or self-care (01) ==
LOC: LABWHC1 10:21
PROVIDERS: ATTEND Podiatrist
DX: M10.9 Gout, unspecified (principal)
CPT/HCPCS: 36415; 82565; 84450; 84460; 84520; 84550; 85652

== ENCOUNTER → 2024-01-19 | Outpatient (CLI) | payer MEDICARE ==
[2024-01-19 17:04] LABS: ALT 13 U/L (8-44); AST 20 U/L (13-35); Total Protein 6.5 g/dL (6.2-8.2)
== END | disposition home or self-care (01) ==
LOC: LABWHC1 10:22
PROVIDERS: ATTEND Podiatrist
DX: M10.9 Gout, unspecified (principal)
CPT/HCPCS: 36415; 82565; 84155; 84450; 84460; 84550

== ENCOUNTER → 2024-02-20 | Outpatient (CLI) | payer MEDICARE ==
[2024-02-20 15:32] LABS: ALT 17 U/L (8-44); AST 36 U/L (13-35); Blood Urea Nitrogen 26.7 mg/dL (9.0-27.0); Uric Acid 6.4 mg/dL (2.9-7.7)
== END | disposition home or self-care (01) ==
LOC: LABWHC1 09:55
PROVIDERS: ATTEND Podiatrist
DX: M10.9 Gout, unspecified (principal)
CPT/HCPCS: 36415; 82565; 84450; 84460; 84520; 84550

== ENCOUNTER → 2024-04-24 | Outpatient (CLI) | payer MEDICARE ==
--- NOTE | 2024-04-25 09:10 | MM ---
Reason for Exam: Screening (asymptomatic). Last screening mammogram was performed 12 month(s) ago. Patient History: Menarche at age 9. First Full-Term at age 18. Postmenopausal. Patient has history of breast feeding. Patient used Estrogen for 3 years. Core Biopsy on the Left side. 06/25/2004, Benign Stereotactic Core Biopsy on the left side. Risk Values: Yadira 5 year model risk: 2.6%. NCI Lifetime model risk: 5.6%. Prior Study Comparison: 04/09/2021 Bilateral Screening Mammogram, [facility]. 04/20/2022 Bilateral MG 3D screening mammo w/cad, [facility]. 04/21/2023 Bilateral MG 3D screening mammo w/cad, [facility]. Tissue Density: There are scattered areas of fibroglandular density. Findings: Analyzed By CAD. There is no suspicious group of microcalcifications or new suspicious mass in either breast. Benign appearing calcifications. Stable chronic nodularity. Previous biopsy clips noted. Overall Assessment: Benign, BI-RAD 2 Management: Screening Mammogram of both breasts in 1 year. . Patient should continue monthly self-breast exams. A clinical breast exam by your physician is recommended on an annual basis. This exam should not preclude additional follow-up of suspicious palpable abnormalities. Note on Yadira scores and lifetime risk: 1. A Yadira score greater than 3% is considered moderate risk. If this is the case, consider specialist referral to assess eligibility for a risk reducing agent. 2. If overall lifetime risk for the development of breast cancer is 20% or higher, the patient may qualify for future screening with alternating mammogram and breast MRI. Electronically signed and approved by: Elton Mustafa M.D. Radiologis
== END | disposition home or self-care (01) ==
LOC: RADMAMWWP 09:17
PROVIDERS: ATTEND Internal Medicine
DX: Z12.31 Encounter for screening mammogram for malignant neoplasm of breast
CPT/HCPCS: 77063; 77067

== ENCOUNTER 2024-06-17 23:33 | Emergency (ER) | payer MEDICARE ==
[2024-06-17 23:57] VITALS: TEMP 97.8
--- NOTE | 2024-06-18 01:33 | ED ---
Abdominal Pain HPI - General Chief Complaint: Abdominal Pain Stated Complaint: abd pain Time Seen by Provider: 06/18/24 00:03 Source: patient Mode of arrival: wheelchair Limitations: no limitations - History of Present Illness Initial Comments: This patient is a 73-year-old woman who presents to have evaluation of pain along the costal margin on the right side and also the right flank. The patient states that it comes on mainly when she tries to get up from seated position. She states if she is just lying still there is very little discomfort. She denies any injury. She has not noted a relation to food. No accompanying fever or chills, nausea or vomiting, change in urination or bowel movements. MD Complaint: abdominal pain Onset/Timin -: week(s) Location: RUQ, R flank Radiation: none Migration to: no migration Severity: moderate Quality: aching Consistency: intermittent Improves With: rest Worsens With: movement Associated Symptoms: denies other symptoms - Related Data Home Medications Medication Instructions Recorded Confirmed Pravastatin Sodium [Pravachol] 80 mg PO HS 01/15/14 04/03/23 Calcium Carbonate [Calcium] 1,200 mg PO DAILY 05/29/17 04/03/23 lisinopriL 20 mg PO DAILY 09/30/19 04/03/23 metFORMIN HCL [Glucophage] 500 mg PO W/SUPPER 09/30/19 04/03/23 Amoxicillin 500 mg PO TID 03/27/23 04/03/23 Benzonatate [Tessalon Perles] 100 mg PO TID PRN 03/27/23 04/03/23 Previous Rx's Medication Instructions Recorded Furosemide [Lasix] 20 mg PO DAILY #0 01/09/18 Apixaban [Eliquis] 5 mg PO BID #60 tab 08/31/20 HYDROcodone/APAP 5-325MG [[place] 1 tab PO Q6H PRN 3 Days #12 tab 06/18/24 5-325] Allergies Allergy/AdvReac Type Severity Reaction Status Date / Time No Known Allergies Allergy Verified 06/17/24 23:57 Review of Systems ROS Statement: Those systems with pertinent positive or pertinent negative responses have been documented in the HPI. ROS Other: All systems not noted in ROS Statement are negative. Constitutional: Denies: fever, chills Respiratory: Denies: cough, dyspnea, hemoptysis Cardiovascular: Denies: chest pain, palpitations, orthopnea, edema, syncope Gastrointestinal: Reports: abdominal pain. Denies: nausea, vomiting, diarrhea, constipation, melena, hematochezia Genitourinary: Denies: dysuria, frequency, hematuria Musculoskeletal: Denies: back pain Skin: Denies: rash Neurological: Denies: headache, weakness Past Medical History Past Medical History: Atrial Fibrillation, Diabetes Mellitus, Hyperlipidemia, Hypertension, Osteoarthritis (OA) Additional Past Medical History / Comment(s): felt like when getting up to walk was going to pass out-no further episodes,Lumbar disc disease, chronic lower back pain, R sided sciatia, NIDDM type II, arthritis in multiple joints, benign colon polyps, diverticular disease, osteoporosis, bilateral leg/pedal edema, varicose veins bilateral legs,Covid 2020, gout History of Any Multi-Drug Resistant Organisms: None Reported Past Surgical History: Joint Replacement, Orthopedic Surgery, Tonsillectomy Additional Past Surgical History / Comment(s): Low back injections, bilateral total knee arthroplasties, bilateral feet bunionectomies, several D&Cs, colonoscopies/benign polypectomies,poppy cataracts,poppy carpel tunnel Past Anesthesia/Blood Transfusion Reactions: No Reported Reaction Additional Past Anesthesia/Blood Transfusion Reaction / Comment(s): no hx blood transfusion Past Psychological History: No Psychological Hx Reported Smoking Status: Never smoker Past Alcohol Use History: None Reported Past Drug Use History: None Reported - Past Family History Father Family Medical History: Congestive Heart Failure (CHF) Mother Family Medical History: Cancer Additional Family Medical History / Comment(s): UNSURE WHAT KIND OF CANCER, HEART PROBLEMS General Exam Limitations: no limitations General appearance: alert, in no apparent distress Head exam: Present: atraumatic, normocephalic Eye exam: Present: normal appearance. Absent: scleral icterus, conjunctival injection ENT exam: Present: normal oropharynx Neck exam: Present: normal inspection Respiratory exam: Present: normal lung sounds bilaterally. Absent: respiratory distress, wheezes, rales, rhonchi, stridor, accessory muscle use Cardiovascular Exam: Present: regular rate, normal rhythm, normal heart sounds. Absent: systolic murmur, diastolic murmur, rubs, gallop GI/Abdominal exam: Present: soft, tenderness (On the costal margin on the right side). Absent: distended, guarding, rebound, rigid, mass, pulsatile mass, hernia Extremities exam: Present: normal inspection, normal capillary refill. Absent: pedal edema, calf tenderness Back exam: Present: normal inspection, paraspinal tenderness. Absent: CVA tenderness (R), CVA tenderness (L), vertebral tenderness Neurological exam: Present: alert Skin exam: Present: warm, dry, intact, normal color. Absent: rash Course Vital Signs 06/17/24 06/18/24 23:52 01:35 Temperature 97.8 F Pulse Rate 60 Respiratory 18 18 Rate Blood Pressure 141/60 150/77 O2 Sat by Pulse 97 Oximetry Medical Decision Making - Medical Decision Making The patient had CT scan of the abdomen that I interpreted as negative for free air, obstruction, or acute surgical condition. On reevaluation, the patient is feeling better. I asked if she felt she was able to provide urine specimen and she stated that she did not feel like she could use the bathroom. She wanted to go home and rest. She states she will follow-up with her physician. Based on the results of the other tests the possibility of stone or urinary tract infection is low, but not 0. The patient again denies urinary symptoms. She will have close follow-up with her physician or return here if symptoms persist or there is worsening in any way. Was pt. sent in by a medical professional or institution ([facility] Calderon, [employer], urgent care, hospital, or fci...) When possible be specific @ -[No] Did you speak to anyone other than the patient for history (EMS, parent, family, police, friend...)? What history was obtained from this source @ -[No] Did you review nursing and triage notes (agree or disagree)? Why? @ -[I reviewed and agree with nursing and triage notes] Were old charts reviewed (outside hosp., previous admission, EMS record, old EKG, old radiological studies, urgent care reports/EKG's, fci records)? Report findings @ -[No old charts were reviewed] Differential Diagnosis (chest pain, altered mental status, abdominal pain women, abdominal pain men, vaginal bleeding, weakness, fever, dyspnea, syncope, headache, dizziness, GI bleed, back pain, seizure, CVA, palpatations, mental health, musculoskeletal)? @ -[not applicable] EKG interpreted by me (3pts min.). @ -[As above] X-rays interpreted by me (1pt min.). @ -[None done] CT interpreted by me (1pt min.). @ -[None done] U/S interpreted by me (1pt. min.). @ -[None done] What testing was considered but not performed or refused? (CT, X-rays, U/S, labs)? Why? @ -[None] What meds were considered but not given or refused? Why? @ -[None] Did you discuss the management of the patient with other professionals (professionals i.e. , PA, MARINE TOWER OPERATOR, lab, RT, psych nurse, mental health social worker, lap regulator, teacher, coastal/harbor defense officer, child welfare caseworker)? Give summary @ -[No] Was smoking cessation discussed for >3mins.? @ -[No] Was critical care preformed (if so, how long)? @ -[No] Were there social determinants of health that impacted care today? How? (Homele ssness, low income, unemployed, alcoholism, drug addiction, transportation, low edu. Level, literacy, decrease access to med. care, residential, rehab)? @ -[No] Was there de-escalation of care discussed even if they declined (Discuss DNR or withdrawal of care, Hospice)? DNR status @ -[No] What co-morbidities impacted this encounter? (DM, HTN, Smoking, COPD, CAD, Cancer, CVA, ARF, Chemo, Hep., AIDS, mental health diagnosis, sleep apnea, morbid obesity)? @ -[None] Was patient admitted / discharged? Hospital course, mention meds given and route, prescriptions, significant lab abnormalities, going to OR and other pertinent info. @ -[hospital course] Undiagnosed new problem with uncertain prognosis? @ -[No] Drug Therapy requiring intensive monitoring for toxicity (Heparin, Nitro, Insulin, Cardizem)? @ -[No] Were any procedures done? @ -[No] Diagnosis/symptom? @ -[default] Acute, or Chronic, or Acute on Chronic? @ -[default] Uncomplicated (without systemic symptoms) or Complicated (systemic symptoms)? @ -[default] Side effects of treatment? @ -[No] Exacerbation, Progression, or Severe Exacerbation? @ -[No] Poses a threat to life or bodily function? How? (Chest pain, [place], [place], pneumonia, PE, COPD, DKA, ARF, appy, cholecystitis, CVA, Diverticulitis, Homicidal, Suicidal, threat to staff... and all critical care pts) @ -[No] - Lab Data Result diagrams: 06/18/24 01:35 06/18/24 01:35 Lab Results 06/18/24 06/18/24 06/18/24 Range/Units 01:35 01:35 01:35 WBC 4.1 (3.8-10.6) k/uL RBC 3.96 (3.80-5.40) m/uL Hgb 11.9 (11.4-16.0) gm/dL Hct 36.2 (34.0-46.0) % MCV 91.3 (80.0-100.0) fL MCH 30.0 (25.0-35.0) pg MCHC 32.8 (31.0-37.0) g/dL RDW 13.6 (11.5-15.5) % Plt Count 159 (150-450) k/uL MPV 7.9 Neutrophils % 67 % Lymphocytes % 21 % Monocytes % 8 % Eosinophils % 2 % Basophils % 0 % Neutrophils # 2.8 (1.3-7.7) k/uL Lymphocytes # 0.9 L (1.0-4.8) k/uL Monocytes # 0.3 (0-1.0) k/uL Eosinophils # 0.1 (0-0.7) k/uL Basophils # 0.0 (0-0.2) k/uL Sodium 138 (137-145) mmol/L Potassium 4.0 (3.5-5.1) mmol/L Chloride 107 (98-107) mmol/L Carbon Dioxide 25 (22-30) mmol/L Anion Gap 6 mmol/L BUN 26 H (7-17) mg/dL Creatinine 0.96 (0.52-1.04) mg/dL Est GFR (CKD-EPI)AfAm 67 (>60 ml/min/1.73 sqM) Est GFR (CKD-EPI)NonAf 58 (>60 ml/min/1.73 sqM) Glucose 120 H (74-99) mg/dL Plasma Lactic Acid Oswaldo 1.0 (0.7-2.0) mmol/L Calcium 9.2 (8.4-10.2) mg/dL Total Bilirubin 0.6 (0.2-1.3) mg/dL AST 23 (14-36) U/L ALT 12 (4-34) U/L Alkaline Phosphatase 83 (38-126) U/L C-Reactive Protein 1.0 H (<1.0) mg/dL Total Protein 6.0 L (6.3-8.2) g/dL Albumin 3.8 (3.5-5.0) g/dL Amylase 65 (30-110) U/L Lipase 167 (23-300) U/L Disposition Clinical Impression: Abdominal wall pain in right flank Disposition: HOME SELF-CARE Condition: Good Instructions (If sedation given, give patient instructions): Abdominal Pain (ED) Prescriptions: HYDROcodone/APAP 5-325MG [[place] 5-325] 1 tab PO Q6H PRN 3 Days #12 tab PRN Reason: Pain Is patient prescribed a controlled substance at d/c from ED?: Yes When asked, does pt state using other controlled substances?: No If prescribed controlled substance>3 days was MAPS reviewed?: Prescribed <3 Days If opioid is for acute pain is fill amount 7 days or less?: Yes If Rx opioid, was Start Talking consent form obtained?: Yes Referrals: Андрей Quick DO [Primary Care Provider] - 1-2 days
--- NOTE | 2024-06-18 01:39 | CT ---
EXAM: CT Abdomen and Pelvis Without Intravenous Contrast CLINICAL HISTORY: pt c/o rt sided abd /flank pain x 1 week no nausea and vomiting right flank pain TECHNIQUE: Axial computed tomography images of the abdomen and pelvis without intravenous contrast. CTDI is 27.2 mGy and DLP is 1600.4 mGy-cm. This CT exam was performed using one or more of the following dose reduction techniques: automated exposure control, adjustment of the mA and/or kV according to patient size, and/or use of iterative reconstruction technique. Coronal and sagittal reformatted images were created and reviewed. 515 images COMPARISON: 09/11/21 FINDINGS: Lung bases: Unremarkable. No mass. No consolidation. Heart: Cardiomegaly. ABDOMEN: Liver: Rahul's lobe of the liver. Gallbladder and bile ducts: Unremarkable. No calcified stones. No ductal dilation. Pancreas: Unremarkable. No ductal dilation. Spleen: Mild splenomegaly. Adrenals: Unremarkable. No mass. Kidneys and ureters: 16 mm left renal cyst, cannot be fully characterized due to lack of IV contrast. No obstructing stones. Stomach and bowel: Colonic diverticulosis. No obstruction. No mucosal thickening. PELVIS: Appendix: Normal appendix. Bladder: Unremarkable. No stones. Reproductive: 4.3 cm exophytic left fundal uterine fibroid is again noted. ABDOMEN and PELVIS: Intraperitoneal space: Unremarkable. No free air. No significant fluid collection. Bones/joints: Osteopenia. Moderate degenerative changes. 8 mm anterolisthesis of L5 on S1. Moderate mid lumbar scoliosis convexed to right. Soft tissues: Small fat-containing umbilical hernia. Vasculature: Unremarkable. No abdominal aortic aneurysm. Lymph nodes: Unremarkable. No enlarged lymph nodes. IMPRESSION: No acute findings in the abdomen or pelvis.
[2024-06-18 01:44] LABS: Basophils % (A) 0 %; Eosinophils # (A) 0.1 k/uL (0-0.7); Eosinophils % (A) 2 %; HCT 36.2 % (34.0-46.0); HGB 11.9 gm/dL (11.4-16.0); Lymphocytes # (A) 0.9 k/uL (1.0-4.8); Lymphocytes % (A) 21 %; MCHC 32.8 g/dL (31.0-37.0); MCV 91.3 fL (80.0-100.0); Mean Platelet Volume 7.9; Monocytes # (A) 0.3 k/uL (0-1.0); Monocytes % (A) 8 %; Neutrophils # (A) 2.8 k/uL (1.3-7.7); Neutrophils % (A) 67 %; Platelet Count 159 k/uL (150-450); RBC 3.96 m/uL (3.80-5.40); RDW 13.6 % (11.5-15.5); WBC 4.1 k/uL (3.8-10.6)
[2024-06-18] MEDS: MORPHINE SULFATE 4 MG/ML SYRINGE IV STA (01:46)
[2024-06-18] MEDS: KETOROLAC 15 MG/ML 1 ML VIAL IVP STA (01:47)
[2024-06-18 01:56] LABS: ALT 12 U/L (4-34); AST 23 U/L (14-36); African American GFR (CKD) 67 (>60 ml/min/1.73 sqM); Albumin 3.8 g/dL (3.5-5.0); Alkaline Phosphatase 83 U/L (38-126); Amylase 65 U/L (30-110); Anion Gap 6 mmol/L; Blood Urea Nitrogen 26 mg/dL (7-17); Calcium 9.2 mg/dL (8.4-10.2); Carbon Dioxide 25 mmol/L (22-30); Chloride 107 mmol/L (98-107); Glucose 120 mg/dL (74-99); Lipase 167 U/L (23-300); Non-African American GFR(CKD) 58 (>60 ml/min/1.73 sqM); Sodium 138 mmol/L (137-145); Total Bilirubin 0.6 mg/dL (0.2-1.3)
[2024-06-18 02:31] VITALS: BP 134/70; PULSE 68; RESP 16
== END 2024-06-18 02:38 | disposition home or self-care (01) ==
LOC: EC 23:33
DX: R10.11 Right upper quadrant pain (principal)
CPT/HCPCS: 36415; 74176; 80053; 82150; 83605; 83690; 85025; 86140; 96374; 96375; 99284

== ENCOUNTER → 2024-06-27 | Outpatient (CLI) | payer MEDICARE ==
[2024-06-27 15:26] LABS: ALT 11 U/L (8-44); AST 18 U/L (13-35); Blood Urea Nitrogen 21.3 mg/dL (9.0-27.0); Uric Acid 6.7 mg/dL (2.9-7.7)
== END | disposition home or self-care (01) ==
LOC: LABWHC1 11:16
PROVIDERS: ATTEND Podiatrist
DX: M10.071 Idiopathic gout, right ankle and foot (principal); M10.072 Idiopathic gout, left ankle and foot
CPT/HCPCS: 36415; 82565; 84450; 84460; 84520; 84550

== ENCOUNTER → 2024-08-19 | Outpatient (CLI) | payer MEDICARE ==
--- NOTE | 2024-08-19 23:30 | US ---
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 FINDINGS: EXAM MEASUREMENTS: Liver Length: 19.1 cm. Normal less than 15.5 cm. Gallbladder Wall: 0.3 cm CBD: 0.5 cm, color Doppler imaging was utilized to isolate the common bile duct for measurement. Spleen: 15.6 cm Right Kidney: 11.0 x 4.0 x 4.7 cm Left Kidney: 10.3 x 3.8 x 4.8 cm Pancreas: wnl Liver: enlarged there is some mild fatty infiltration. Gallbladder: wnl Evidence for sonographic Colindres's sign: no CBD: wnl Spleen: enlarged Right Kidney: wnl Left Kidney: wnl Upper IVC: wnl Abd Aorta: wnl IMPRESSION: 1. Hepatomegaly. [facility], Workstation: 3, 08/19/2024 11:28 PM
== END | disposition home or self-care (01) ==
LOC: RADUSWWP 07:18
PROVIDERS: ATTEND Internal Medicine Hematology & Oncology
DX: E83.119 Hemochromatosis, unspecified (principal); R16.2 Hepatomegaly with splenomegaly, not elsewhere classified; Z71.3 Dietary counseling and surveillance; E11.9 Type 2 diabetes mellitus without complications; R16.0 Hepatomegaly, not elsewhere classified
CPT/HCPCS: 76700

== ENCOUNTER → 2024-09-10 | Outpatient (CLI) | payer MEDICARE ==
[2024-09-10 10:53] LABS: Uric Acid 6.9 mg/dL (2.9-7.7)
[2024-09-10 10:54] LABS: ALT 10 U/L (8-44); AST 17 U/L (13-35); Blood Urea Nitrogen 21.1 mg/dL (9.0-27.0)
== END | disposition home or self-care (01) ==
LOC: LABWHC1 08:05
PROVIDERS: ATTEND Podiatrist
DX: M10.071 Idiopathic gout, right ankle and foot (principal); M10.072 Idiopathic gout, left ankle and foot
CPT/HCPCS: 36415; 82565; 84450; 84460; 84520; 84550

== ENCOUNTER → 2025-02-25 | Outpatient (CLI) | payer MEDICARE ==
[2025-02-25 15:43] LABS: Blood Urea Nitrogen 31.8 mg/dL (9.0-27.0)
[2025-02-25 15:44] LABS: ALT 14 U/L (8-44); AST 19 U/L (13-35); Uric Acid 7.9 mg/dL (2.9-7.7)
== END | disposition home or self-care (01) ==
LOC: LABWHC1 09:58
PROVIDERS: ATTEND Podiatrist
DX: M10.071 Idiopathic gout, right ankle and foot (principal); M10.072 Idiopathic gout, left ankle and foot
CPT/HCPCS: 36415; 82565; 84450; 84460; 84520; 84550